=== PATIENT | male | born 1935 | race Caucasian/White ===

== ENCOUNTER 2020-12-10 22:15 | Inpatient (IN) ==
--- OUTSIDE RECORDS SUMMARY | 2020-12-10 22:17 | External Medical Summary | Continuity of Care Document ---
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 KERRI Macias Start: 29-Aug-2010 Refills: 0 Flaxseed Oil 1000 MG Oral Capsule; One capsule daily KERRI Christine Start: 29-Aug-2010 Refills: 0 Aspirin 81 MG TABS; TAKE 1 TABLET DAILY. KERRI Christine Start: 29-Aug-2010 Refills: 0 Percocet 7.5-325 MG Oral Tablet; TAKE 1 TO 2 TABLETS EVERY 4 TO 6 HOURS NEEDED FOR PAIN. KERRI Christine Start: 29-Aug-2010 Refills: 0 Flexeril 10 MG TABS; TAKE 1 TABLET 3 TIMES DAILY NEEDED. KERRI Christine Start: 29-Aug-2010 Refills: 0 Doxazosin Mesylate 4 MG Oral Tablet; TAKE 1 TABLET DAILY. KERRI Barr Start: 29-Aug-2010 Refills: 0 Procedures History of Cholecystectomy Status: Compl eted History of Knee Surgery Status: Complete d History of Appendectomy Status: Complete d History of Cath Stent Placement Status: Completed Immunizations Immunizations not documented Social History - Smoking Status Ex-smoker Interventions Follow-ups/ReferralsFollow-up visit in 1 year; Done: 26 Feb 2016 Plan of Treatment Planned Observations Planned Goals not documented Results No Known Results Results not documented Encounters Appointment; Nicolas De La Cruz M.D. 26-Feb-2016 7:30 Encounter Diagnosis: Problem not documented
--- OUTSIDE RECORDS SUMMARY | 2020-12-10 22:18 | External Medical Summary | Continuity of Care Document ---
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 KERRI Macias Start: 29-Aug-2010 Refills: 0 Aspirin 81 MG TABS; TAKE 1 TABLET DAILY. KERRI Christine Start: 29-Aug-2010 Refills: 0 Flaxseed Oil 1000 MG Oral Capsule; One capsule daily KERRI Christine Start: 29-Aug-2010 Refills: 0 Doxazosin Mesylate 4 MG Oral Tablet; TAKE 1 TABLET DAILY. KERRI Barr Start: 29-Aug-2010 Refills: 0 Flexeril 10 MG TABS; TAKE 1 TABLET 3 TIMES DAILY NEEDED. KERRI Christine Start: 29-Aug-2010 Refills: 0 Percocet 7.5-325 MG Oral Tablet; TAKE 1 TO 2 TABLETS EVERY 4 TO 6 HOURS NEEDED FOR PAIN. KERRI Christine Start: 29-Aug-2010 Refills: 0 Procedures History of [...]
[2020-12-10] MEDS ORDERED: SODIUM CHLORIDE 0.9% 500 ML IV SCH (22:45)
[2020-12-10 22:55] LABS: Basophils # (auto) 0.03 K/uL (0-0.2); Basophils % (auto) 0.2 %; Eosinophils # (auto) 0.04 K/uL (0-0.5); Eosinophils % (auto) 0.3 %; Hematocrit (blood only) 40.2 % (42-52); Hemoglobin 13.8 g/dL (14.0-18.0); Immature Granulocytes # (auto) 0.04 K/uL (0.00-0.02); Immature Granulocytes % (auto) 0.3 %; Lymphocytes # (auto) 1.73 K/uL (1.2-3.4); Lymphocytes % (auto) 13.4 %; Mean Corpuscular Hemoglobin 30.2 pg (25-34); Mean Corpuscular Hgb Conc 34.3 g/dL (32-36); Mean Platelet Volume 10.2 fL (7.4-10.4); Monocytes # (auto) 0.61 K/uL (0.11-0.59); Monocytes % (auto) 4.7 %; Neutrophils # (auto) 10.44 K/uL (1.4-6.5); Neutrophils % (auto) 81.1 %; Platelet Count 192 K/uL (130-400); RDW Coefficient of Variation 13.7 % (11.5-14.5); Red Blood Count 4.57 M/uL (4.7-6.1); White Blood Count 12.89 K/uL (4.8-10.8)
[2020-12-10 23:04] LABS: iSTAT Creatinine 1.7 mg/dl (0.6-1.3); iSTAT Hemoglobin 13.9 g/dl (14.0-18.0); iSTAT Ionized Calcium 1.19 mmol/l (1.12-1.32); iSTAT Potassium 4.2 mmol/L (3.3-5.0)
[2020-12-10 23:06] LABS: Prothrombin Time 10.3 Seconds (9.0-12.0)
[2020-12-10 23:11] LABS: Alanine Aminotransferase 20 U/L (12-78); Albumin Level 4.2 gm/dl (3.4-5.0); Aspartate Aminotransferase 23 U/L (15-37); BUN Creatinine Ratio 22.3 (10-20); Blood Urea Nitrogen 39 mg/dl (7-18); Calcium 9.2 mg/dl (8.5-10.1); Carbon Dioxide 19 mmol/L (21-32); Chloride 110 mmol/L (98-107); Est GFR (African American) 40.5; Glucose 148 mg/dl (70-99); Magnesium 1.7 mg/dl (1.8-2.4); Potassium 4.1 mmol/L (3.5-5.1); Sodium 138 mmol/L (136-145)
[2020-12-10 23:16] LABS: Albumin Globulin Ratio 1.2 (0.9-2); Alkaline Phosphatase 125 U/L (45-117); Bilirubin,Total 0.3 mg/dl (0.2-1); Globulin 3.5 gm/dl (2.5-4.0); Total Protein 7.7 gm/dl (6.4-8.2); Troponin I < 0.015 ng/ml (0-0.045)
[2020-12-10] MEDS ORDERED: PIPERACILLIN/TAZOBACTAM 4.5 GM/120 ML BAG IV ONE (23:48)
[2020-12-10] MEDS ORDERED: PIPERACILL/TAZOBAC CONSULT ACTIVE PRN (23:48)
[2020-12-10] MEDS ORDERED: SODIUM CHLORIDE 0.9% 1000ML 1,000 ML IV ONE (23:48)
[2020-12-10] MEDS ORDERED: SODIUM CHLORIDE 0.9% 500 ML IV ONE (23:48)
[2020-12-10] MEDS ORDERED: OPTIRAY 320 100ml IV ONE (23:51)
--- NOTE | 2020-12-11 00:08 | Emergency Department Note ---
History of Present Illness General Chief complaint: Rectal Pain Stated complaint: PAIN/BLEEDING RECTAL Time Seen by Provider: 12/10/20 22:23 History of Present Illness Maximum Pain Intensity: 9 This 85-year-old presents to the ER complaining of abdominal pain and rectal pain for the past day Location: Abdomen and rectum Quality: Painful Severity: Moderate Duration: Today Timing: Today Context: Patient and family were concerned and brought the patient in Modifying factors: better with nothing; worse with palpation Patient had bright red blood per rectum. He does have a known abdominal aneurysm that has been repaired and might need to be repaired again. Patient denies chest pain, dyspnea, fevers, vomiting, diarrhea. Home Medications Medication Instructions Recorded Confirmed Type aspirin 81 mg PO DAILY 08/24/19 12/10/20 History cyclobenzaprine 5 mg PO HS 08/24/19 12/10/20 History doxazosin 4 mg PO HS 08/24/19 12/10/20 History famotidine 20 mg PO BID 08/24/19 12/10/20 History loumouefeyk-dypwyevuv-lyxsdomz 1 inh INHALATION DAILY 08/24/19 12/10/20 History [Trelegy Ellipta] nitroglycerin 0.4 mg SUBLINGUAL DAILY PRN 08/24/19 12/10/20 History omeprazole 40 mg PO DAILY 08/24/19 12/10/20 History sertraline 50 mg PO DAILY 08/24/19 12/10/20 History albuterol sulfate 2 puff INHALATION Q4 PRN 12/10/20 12/10/20 History multivitamin [Multiple Vitamin] 1 tab PO DAILY 12/10/20 12/10/20 History umeclidinium-vilanterol [Anoro 1 inh INHALATION DAILY PRN 12/10/20 12/10/20 H istory Ellipta] Allergies Allergy/AdvReac Type Severity Reaction Status Date / Time No Known Allergies Allergy Mild Verified 12/10/20 23:23 Past Med/Surg History Medical History (Updated 12/11/20 @ 00:51 by Gabby Barnett PA-C) COPD (chronic obstructive pulmonary disease) Surgical History History of heart artery stent Social History Smoking Status: Former smoker Tobacco Type: Cigarettes Feels Safe at Home: Yes Review of Systems A total of 10 systems reviewed and were otherwise negative Physical Exam Vital Signs Vital Signs - 24 hr 12/10/20 22:18 12/10/20 23:04 12/11/20 00:53 Temperature 36.5 C Temperature Source Temporal Artery Scan Pulse Rate 112 H 112 H 100 H Pulse Rate from SpO2 Sensor 100 H Respiratory Rate 16 16 18 Respiratory Effort / Characteristics Non-Labored Spontaneous Respiratory Depth Normal Blood Pressure 166/86 H 164/94 H Blood Pressure Mean 112 117 Pulse Oximetry 92 92 95 Oxygen Delivery Method Room Air Room Air Sepsis Recent Fever Within 48 Hours No Sepsis New/Unexplained Change in Mental Status No Sepsis Action Taken by Nursing No Action Required 12/11/20 00:56 12/11/20 01:00 Temperature Temperature Source Pulse Rate 100 H 100 H Pulse Rate from SpO2 Sensor 100 H 100 H Respiratory Rate 18 18 Respiratory Effort / Characteristics Respiratory Depth Blood Pressure 168/94 H Blood Pressure Mean 118 Pulse Oximetry 95 92 Oxygen Delivery Method Sepsis Recent Fever Within 48 Hours Sepsis New/Unexplained Change in Mental Status Sepsis Action Taken by Nursing VITALS: Vitals are noted on the nurse's note and reviewed by myself. Vital signs stable. GENERAL: Pleasant male who appears in pain, in no acute distress, nondiaphoretic, well-developed well-nourished. SKIN: Capillary reflex less than 2 seconds. HEENT: Normocephalic. PERRLA. EOMI. Nares patent. Mucous membranes moist. Neck is supple without nuchal rigidity. HEART: Regular rate and rhythm LUNGS: Clear to auscultation bilaterally without wheezes, rales or rhonchi. No retractions or accessory muscle use. ABDOMEN: Positive bowel sounds x 4. Normal tympanic percussion. Soft, diffusely tender to palpation, without masses or organomegaly. Lee sign negative. No guarding or rebound tenderness. No CVA tenderness Rectal exam: Hemorrhoids present, light brown liquid stool, daughter present. No fissures or tears. MUSCULOSKELETAL: No gross musculoskeletal defects. NEURO: Patient was alert and oriented to person place and time. No focal neurological deficits. Course Administered Medications Sodium Chloride (Nss 1000ml) 1,000 mls @ 75 mls/hr IV .[id number] ONE Stop: 12/11/20 14:15 Last Admin: 12/11/20 01:24 Dose: 75 mls/hr Documented by: [id number] Discontinued Medications Doxazosin Mesylate (Doxazosin Mesylate Tab 2 Mg Tab) 2 mg PO NOW STA Stop: 12/11/20 00:53 Last Admin: 12/11/20 01:21 Dose: 2 mg Documented by: [id number] Sodium Chloride (Nss) 500 mls @ 999 mls/hr IV .Q31M RABIA Stop: 12/10/20 23:15 Last Infusion: 12/10/20 23:16 Dose: 0 mls/hr Documented by: [id number] Admin: 12/10/20 22:45 Dose: 999 mls/hr Documented by: [id number] Piperacillin Sod/Tazobactam Sod (Zosyn) 4.5 gm in 120 mls @ 240 mls/hr IV NOW ONE Stop: 12/11/20 00:17 Last Admin: 12/11/20 01:13 Dose: 240 mls/hr Documented by: [id number] Sodium Chloride (Nss 1000ml) 1,000 mls @ 999 mls/hr IV .Q1H1M ONE Stop: 12/11/20 00:48 Last Infusion: 12/11/20 01:23 Dose: 0 mls/hr Documented by: [id number] Admin: 12/10/20 23:50 Dose: 999 mls/hr Documented by: [id number] Sodium Chloride (Nss) 500 mls @ 999 mls/hr IV .Q31M ONE Stop: 12/11/20 00:18 Last Infusion: 12/11/20 00:21 Dose: 0 mls/hr Documented by: [id number] Admin: 12/10/20 23:50 Dose: 999 mls/hr Documented by: [id number] Ioversol (Ioversol 100ml) 100 ml IV ONCE ONE Stop: 12/10/20 23:52 Last Admin: 12/10/20 23:52 Dose: 93 ml Documented by: [id number] Medical Decision Making Medical Records Attestation: I reviewed the patient's medical records. Home Medications Current Medication List: was personally reviewed by me Laboratory Data Attestation: I reviewed the patient's lab results. Result diagrams: 12/10/20 22:46 12/10/20 22:46 Lab Results 12/10/20 12/10/20 12/10/20 Range/Units 22:22 22:46 22:46 WBC 12.89 H (4.8-10.8) K/uL RBC 4.57 L (4.7-6.1) M/uL Hgb 13.8 L (14.0-18.0) g/dL POC Hgb (14.0-18.0) g/dl Hct 40.2 L (42-52) % POC Hct (42-52) % MCV 88.0 (80-100) fL MCH 30.2 (25-34) pg MCHC 34.3 (32-36) g/dL RDW Std Deviation 44.0 (36.4-46.3) fL RDW Coeff of Ravi 13.7 (11.5-14.5) % Plt Count 192 (130-400) K/uL MPV 10.2 (7.4-10.4) fL Immature Gran % (Auto) 0.3 % Neut % (Auto) 81.1 % Lymph % (Auto) 13.4 % Hooker % (Auto) 4.7 % Eos % (Auto) 0.3 % Baso % (Auto) 0.2 % Neut # (Auto) 10.44 H (1.4-6.5) K/uL Lymph # (Auto) 1.73 (1.2-3.4) K/uL Hooker # (Auto) 0.61 H (0.11-0.59) K/uL Eos # (Auto) 0.04 (0-0.5) K/uL Baso # (Auto) 0.03 (0-0.2) K/uL Immature Gran # (Auto) 0.04 H (0.00-0.02) K/uL PT 10.3 (9.0-12.0) Seconds INR 1.0 (0.9-1.1) POC Sodium (135-144) mmol/L Sodium (136-145) mmol/L POC Potassium (3.3-5.0) mmol/L Potassium (3.5-5.1) mmol/L POC Chloride (101-112) mmol/L Chloride (98-107) mmol/L Carbon Dioxide (21-32) mmol/L POC Total CO2 (24-31) mmol/L Anion Gap (3-11) POC Anion Gap (16-25) mmol/L POC BUN (7-18) mg/dl BUN (7-18) mg/dl Creatinine (0.6-1.4) mg/dl POC Creatinine (0.6-1.3) mg/dl Est Cr Clr Drug Dosing Est GFR ( Amer) Est GFR (Non-Af Amer) BUN/Creatinine Ratio (10-20) Glucose (70-99) mg/dl POC Glucose (other) (70-99) mg/dl Lactate (0.4-2.0) mmol/L Calcium (8.5-10.1) mg/dl POC Ioniz Calcium Ric (1.12-1.32) mmol/l Magnesium (1.8-2.4) mg/dl Total Bilirubin (0.2-1) mg/dl AST (15-37) U/L ALT (12-78) U/L Alkaline Phosphatase (45-117) U/L Troponin I (0-0.045) ng/ml Total Protein (6.4-8.2) gm/dl Albumin (3.4-5.0) gm/dl Globulin (2.5-4.0) gm/dl Albumin/Globulin Ratio (0.9-2) Procalcitonin (0-0.5) ng/ml POC Stool Occult Blood Negative (Negative) COVID-19 Eval Order Blood Type Antibody Screen 12/10/20 12/10/20 12/10/20 Range/Units 22:46 22:46 22:46 WBC (4.8-10.8) K/uL RBC (4.7-6.1) M/uL Hgb (14.0-18.0) g/dL POC Hgb (14.0-18.0) g/dl Hct (42-52) % POC Hct (42-52) % MCV (80-100) fL MCH (25-34) pg MCHC (32-36) g/dL RDW Std Deviation (36.4-46.3) fL RDW Coeff of Ravi (11.5-14.5) % Plt Count (130-400) K/uL MPV (7.4-10.4) fL Immature Gran % (Auto) % Neut % (Auto) % Lymph % (Auto) % Hooker % (Auto) % Eos % (Auto) % Baso % (Auto) % Neut # (Auto) (1.4-6.5) K/uL Lymph # (Auto) (1.2-3.4) K/uL Hooker # (Auto) (0.11-0.59) K/uL Eos # (Auto) (0-0.5) K/uL Baso # (Auto) (0-0.2) K/uL Immature Gran # (Auto) (0.00-0.02) K/uL PT (9.0-12.0) Seconds INR (0.9-1.1) POC Sodium (135-144) mmol/L Sodium 138 (136-145) mmol/L POC Potassium (3.3-5.0) mmol/L Potassium 4.1 (3.5-5.1) mmol/L POC Chloride (101-112) mmol/L Chloride 110 H (98-107) mmol/L Carbon Dioxide 19 L (21-32) mmol/L POC Total CO2 (24-31) mmol/L Anion Gap 9.0 (3-11) POC Anion Gap (16-25) mmol/L POC BUN (7-18) mg/dl BUN 39 H (7-18) mg/dl Creatinine 1.73 H (0.6-1.4) mg/dl POC Creatinine (0.6-1.3) mg/dl Est Cr Clr Drug Dosing Not Reportable Est GFR ( Amer) 40.5 Est GFR (Non-Af Amer) 35.0 BUN/Creatinine Ratio 22.3 H (10-20) Glucose 148 H (70-99) mg/dl POC Glucose (other) (70-99) mg/dl Lactate 2.6 H* (0.4-2.0) mmol/L Calcium 9.2 (8.5-10.1) mg/dl POC Ioniz Calcium Ric (1.12-1.32) mmol/l Magnesium 1.7 L (1.8-2.4) mg/dl Total Bilirubin 0.3 (0.2-1) mg/dl AST 23 (15-37) U/L ALT 20 (12-78) U/L Alkaline Phosphatase 125 H (45-117) U/L Troponin I < 0.015 (0-0.045) ng/ml Total Protein 7.7 (6.4-8.2) gm/dl Albumin 4.2 (3.4-5.0) gm/dl Globulin 3.5 (2.5-4.0) gm/dl Albumin/Globulin Ratio 1.2 (0.9-2) Procalcitonin (0-0.5) ng/ml POC Stool Occult Blood (Negative) COVID-19 Eval Order Blood Type O Positive Antibody Screen NEGATIVE 12/10/20 12/10/20 12/11/20 Range/Units 22:46 22:51 01:05 WBC (4.8-10.8) K/uL RBC (4.7-6.1) M/uL Hgb (14.0-18.0) g/dL POC Hgb 13.9 L (14.0-18.0) g/dl Hct (42-52) % POC Hct 41 L (42-52) % MCV (80-100) fL MCH (25-34) pg MCHC (32-36) g/dL RDW Std Deviation (36.4-46.3) fL RDW Coeff of Ravi (11.5-14.5) % Plt Count (130-400) K/uL MPV (7.4-10.4) fL Immature Gran % (Auto) % Neut % (Auto) % Lymph % (Auto) % Hooker % (Auto) % Eos % (Auto) % Baso % (Auto) % Neut # (Auto) (1.4-6.5) K/uL Lymph # (Auto) (1.2-3.4) K/uL Hooker # (Auto) (0.11-0.59) K/uL Eos # (Auto) (0-0.5) K/uL Baso # (Auto) (0-0.2) K/uL Immature Gran # (Auto) (0.00-0.02) K/uL PT (9.0-12.0) Seconds INR (0.9-1.1) POC Sodium 140 (135-144) mmol/L Sodium (136-145) mmol/L POC Potassium 4.2 (3.3-5.0) mmol/L Potassium (3.5-5.1) mmol/L POC Chloride 111 (101-112) mmol/L Chloride (98-107) mmol/L Carbon Dioxide (21-32) mmol/L POC Total CO2 19 L (24-31) mmol/L Anion Gap (3-11) POC Anion Gap 14.0 L (16-25) mmol/L POC BUN 35 H (7-18) mg/dl BUN (7-18) mg/dl Creatinine (0.6-1.4) mg/dl POC Creatinine 1.7 H (0.6-1.3) mg/dl Est Cr Clr Drug Dosing Est GFR ( Amer) Est GFR (Non-Af Amer) BUN/Creatinine Ratio (10-20) Glucose (70-99) mg/dl POC Glucose (other) 154 H (70-99) mg/dl Lactate (0.4-2.0) mmol/L Calcium (8.5-10.1) mg/dl POC Ioniz Calcium Ric 1.19 (1.12-1.32) mmol/l Magnesium (1.8-2.4) mg/dl Total Bilirubin (0.2-1) mg/dl AST (15-37) U/L ALT (12-78) U/L Alkaline Phosphatase (45-117) U/L Troponin I (0-0.045) ng/ml Total Protein (6.4-8.2) gm/dl Albumin (3.4-5.0) gm/dl Globulin (2.5-4.0) gm/dl Albumin/Globulin Ratio (0.9-2) Procalcitonin < 0.05 (0-0.5) ng/ml POC Stool Occult Blood (Negative) COVID-19 Eval Order CovFluRsv at [facility] Blood Type Antibody Screen Imaging Data Attestation: I personally reviewed and interpreted this imaging study as follows: MDM Narrative Prior records/ancillary studies reviewed. Triage Nursing notes reviewed. Additional history obtained from the family. The patient's history was concerning for possible gastrointestinal bleeding. Differential diagnosis: Etiologies such as diverticulosis, AVM, coagulopathy, colitis, inflammatory bowel disease, malignancy, Josette-Bull tear, esophagitis, peptic ulcer disease, variceal bleed, gastritis, epistaxis, fissure, hemorrhoids, as well as others were entertained. Physical exam: As above. The patients vital signs were mildly tachycardic. ER treatment provided: An order was placed for continuous cardiac monitoring. The monitor shows a rate of 60-1 20 with a sinus rhythm. IV fluids, Zosyn, enema On reassessment the patient felt better. Diagnostics interpreted by me: ECG: Ordered for tachycardia EKG: Normal sinus, first-degree AV block, no acute ST or T wave changes. Impression first-degree AV block interpreted by myself I think arrhythmia is unlikely. EKG shows no interval abnormalities such as QT prolongation or WPW. There are no findings to suggest Brugada syndrome. Cardiac monitoring in the emergency department reveals no tachycardic or bradycardic dysrhythmia. Hypertrophic cardiomyopathy was considered but there are no clear historical elements pointing toward this. EKG is not suggestive. The QRS voltage is not extremely large and there are no suggestive Q waves. The labs revealed mild leukocytosis Elevated lactic acid Negative troponin Mild anemia Type and screen sent and patient and daughter were counseled on blood transfusion if needed. Paperwork is placed on the chart. Imaging studies: Chest x-ray with no acute consolidation, pneumothorax or free air per my interpretation Preliminary Findings Only See Final Report For Complete Findings CT ABDOMEN & PELVIS With Contrast: 6.4 cm infrarenal abdominal aortic aneurysm with bifurcated endovascular repair. Mild hyperdensity within the aneurysm sac which could indicate an underlying endoleak. 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 Bilateral renal cysts. No hydronephrosis. Cholecystectomy. No bowel obstruction. Nonvisualization of the appendix which may be surgically a bsent. Colonic diverticulosis. No definite CT evidence for diverticulitis. Large amount of stool in the rectum which may reflect constipation. Enlarged prostate gland. Fat-containing left inguinal hernia. No acute osseous abnormality. Radiologist: Sixto Ware M.D. Consultation: A consultation was placed with Dr Montenegro, hospitalist. The case was discussed and diagnostics were reviewed. The patient was evaluated in the ER for further treatment. This appears to be consistent with abdominal pain with rectal bleeding with a lactic acidosis. Patient did receive an enema. He had a large bowel movement. His lactic was elevated. He had a white count. He was started antibiotics. Medicine was consulted. He will be evaluated for admission. By the evaluation outlined above emergent etiologies such as esophageal perforation, peptic ulcer disease, variceal bleed, coagulopathy, gastritis, epistaxis, malignancy, inflammatory bowel disease, as well as others were deemed relatively unlikely. The pt informed about the findings as listed above. All questions were answered and pleased with the treatment. The chart was completed utilizing [employer] Speech voice recognition software. Grammatical errors, random word insertions, pronoun errors, and incomplete sentences are an occassional consequence of this system due to software limitations, ambient noise, and hardware issues. Any formal questions or concerns about the content, text, or information contained within the body of t his dictation should be directly addressed to the physician technical staff assistant for clarification. Impression & Plan Abdominal pain, Bright red rectal bleeding, Acidosis, lactic Discharge Plan Visit Data Chief Complaint: Rectal Pain Stated Complaint: PAIN/BLEEDING RECTAL ED Provider: Michael Watkins ED Midlevel Provider: Gabby Barnett Discharge Problem: Abdominal pain, Bright red rectal bleeding, Acidosis, lactic Patient Disposition: Admitted As Inpatient Condition: Fair Forms Stand Alone Forms: [facility] Prescriptions Prescriptions: No Action cyclobenzaprine 10 mg tablet 5 mg PO HS RF: 0 omeprazole 40 mg capsule,delayed release(DR/EC) 40 mg PO DAILY RF: 0 aspirin 81 mg Tablet,Delayed Release (Dr/Ec) 81 mg PO DAILY RF: 0 famotidine 20 mg tablet 20 mg PO BID RF: 0 nitroglycerin 0.4 mg tablet, sublingual 0.4 mg sublingual DAILY PRN (Reason: Chest Pain) RF: 0 doxazosin 4 mg tablet 4 mg PO HS RF: 0 sertraline 50 mg tablet 50 mg PO DAILY RF: 0 Trelegy Ellipta 100-62.5-25 mcg blister with device 1 inh INHALATION DAILY RF: 0 multivitamin [Multiple Vitamin] Tablet 1 tab PO DAILY RF: 0 albuterol sulfate 90 mcg/actuation HFA aerosol inhaler 2 puff INHALATION Q4 PRN (Reason: Shortness Of Breath Or Wheezing) RF: 0 Anoro Ellipta 62.5-25 mcg/actuation Blister With Device 1 inh INHALATION DAILY PRN (Reason: Shortness Of Breath Or Wheezing) RF: 0 Referrals Referrals: Víctor Domínguez MD [Primary Care Provider] - Discharge Problem: Abdominal pain Qualifiers: Abdominal location: generalized Qualified Code(s): R10.84 - Generalized abdominal pain
[2020-12-11] MEDS ORDERED: DOXAZosin MESYLATE TAB 2 MG TAB PO STA (00:52)
[2020-12-11] MEDS ORDERED: SODIUM CHLORIDE 0.9% 1000ML 1,000 ML IV ONE (00:56)
[2020-12-11] MEDS: MAGNESIUM SULFATE / D5W 1 GM/100 ML BAG IV SCH ×2 (02:08→03:30)
[2020-12-11 02:18] LABS: Influenza A virus by PCR Negative (Neg); Influenza B virus by PCR Negative (Neg); RSV by PCR Negative (Neg); SARS CoV2 RNA(COVID-19) InHosp NEGATIVE (Negative)
[2020-12-11 02:26] LABS: Appearance Urine Clear (Clear); Bilirubin Urine Negative (Negative); Blood Urine Negative (Negative); Color Urine Yellow; Glucose Urine UA Negative (Negative); Ketones Urine Negative (Negative); Leukocyte Esterase Urine Negative (Negative); Nitrite Urine Negative (Negative); Protein Urine Negative (Negative); Specific Gravity Urine > 1.045 (1.000-1.030); Urobilinogen Urine Negative (Negative)
--- NOTE | 2020-12-11 04:40 | History & Physical Report ---
Date of Service December 11, 2020 Assessment & Plan (1) Abdominal pain: with L GIB as per family account Possibly from fecal retention, hx diverticulosis, hemorrhoids from last colonoscopy Hemoglobin currently stable. ARF on CKD secondary to illness AAA with possible endoleak hx AAA repair (01/2019) Some enlargement compared to last imaging from 2 months ago. Patient follows with [facility] vascular surgery hx CAD status post stent COPD, pulmonary status at baseline hypertension, elevated secondary discomfort hyperlipidemia, statin intolerance as per records hx renal artery stenosis as per records chronic anemia, hemoglobin better than baseline likely secondary to hemoconcentration Hyperglycemia likely prediabetes, hemoglobin A1c of 6.13 February 2020 Dementia, patient has a pleasant baseline past tobacco abuse OBS Medical telemetry Bowel regimen Clear liquids for now Appropriate to hold home aspirin given L GIB Serial H&H, transfuse PRBC if hemoglobin less than 8 and or for symptomatic anemia GI consult if with progression Monitor creatinine response to IVF Outpatient [facility] vascular surgery follow-up (Case discussed with [facility] vascular surgeon contractor general building, Dr. Slaughter. He does not think patient's abdominal pain is from AAA endoleak. Patient also a poor candidate for vascular surgery as per Dr. Slaughter.) Delirium precautions Update hemoglobin A1c DVT prophylaxis with SCDs Re: GI bleed DNR as per daughter/POA Ms. Negrita Shapr. (I communicated [facility] vascular surgeon recommendations to daughter regarding AAA as well.) She requests updates from providers thru [phone]. Text document was generated using [employer] voice recognition software. It may contain grammatical or spelling errors. Kindly contact undersigned for clarification of any documentation item in question. History of Present Illness Chief Complaint: Surgery as per patient Abdominal pain, rectal bleeding as per family Primary Care Provider: Víctor Domínguez MD History obtained from patient, family, and records. Limited history from patient secondary to dementia. Medical history significant for AAA repair (01/2019, [facility]), CAD, COPD, hypertension, hyperlipidemia, statin intolerance, renal artery stenosis as per records, CRI (baseline creatinine 1.5 ), chronic anemia (baseline hemoglobin 12), dementia, past tobacco abuse. Patient underwent AAA repair at [facility] last January 2019. August 2020 aortic duplex showed endoleak with increase in aneurysmal sac size from 5 to 5[address] abdomen pelvis showed interval increase size of aneurysm sac to 5.2 x 6.2 cm consistent with endoleak. Patient without complaints of abdominal/flank or back pain at time of CT report. 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 1 day history of achy abdominal pain going across patient's belly with bright red blood per rectum. Unknown if patient constipated. No fever, no chills. Patient denies chest pain, S OB, nausea, emesis symptoms. Patient brought to the ER for evaluation. Given Zosyn for possible sepsis. Soapsuds enema given at the ER as well for possible constipation. Patient currently without complaints and has no recollection as to why he is in the hospital. Medical History as above 2011 EGD showed normal stomach and duodenum. 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 with Allergies Allergy/AdvReac Type Severity Reaction Status Date / Time No Known Allergies Allergy Mild Verified 12/10/20 23:23 Home Medications Medication Instructions Recorded Confirmed Type aspirin 81 mg PO DAILY 08/24/19 12/10/20 History cyclobenzaprine 5 mg PO HS 08/24/19 12/10/20 History doxazosin 4 mg PO HS 08/24/19 12/10/20 History famotidine 20 mg PO BID 08/24/19 12/10/20 History ewertoezyli-jihkgzmxi-redjgfdp 1 inh INHALATION DAILY 08/24/19 12/10/20 History [Trelegy Ellipta] nitroglycerin 0.4 mg SUBLINGUAL DAILY PRN 08/24/19 12/10/20 History omeprazole 40 mg PO DAILY 08/24/19 12/10/20 History sertraline 50 mg PO DAILY 08/24/19 12/10/20 History albuterol sulfate 2 puff INHALATION Q4 PRN 12/10/20 12/10/20 History multivitamin [Multiple Vitamin] 1 tab PO DAILY 12/10/20 12/10/20 History umeclidinium-vilanterol [Anoro 1 inh INHALATION DAILY PRN 12/10/20 12/10/20 History Ellipta] Past Med/Surg History Medical History (Updated 12/11/20 @ 00:51 by Gabby Barnett PA-C) COPD (chronic obstructive pulmonary disease) Surgical History History of heart artery stent Social History Smoking Status: Former smoker Tobacco Type: Cigarettes Second Hand Exposure: No; Do You Dip or Chew Tobacco: No; Tobacco Cessation Education Requested by Patient: No Hx Alcohol Use: Yes Alcohol type: beer Hx Substance Use: No Preferred Language: Uzbek Communication Ability: Effective Insulation Nozzleman Required: No Beliefs That Will Affect Care: None Current Living Situation: Spouse Other Information That Helps Us Care for You: No Feels Safe at Home: Yes Safety Concerns: Feels Safe At This Time Assistive Devices: Glasses Review of Systems Review of Systems: Could not be reliably obtained Physical Exam Physical Exam: GENERAL: Comfortable, pleasant, demented, no respiratory distress SKIN: Pallor, warm HEENT: Alopecia, bespectacled, pale palpebral conjunctivae, no ptosis, dry buccal mucosa NECK : Supple, no tenderness CHEST : CTA, no tenderness HEART : RRR, no obvious murmurs ABDOMEN: Some distention, minimal hypogastric tenderness EXTREMITIES : No LE swelling/tenderness, no other conspicuous deformities noted NEUROLOGIC : Coherent, pleasantly demented, no facial asymmetry, no other gross focality Results & Data Results & Data ([facility]) Vital Signs (Past 12 Hours) Vital Signs Temp Pulse Pulse Resp BP BP Pulse Ox 12/11/20 04:11 37 C 89 17 149/84 H 95 12/11/20 04:00 89 15 149/84 H 92 12/11/20 03:30 92 H 17 138/89 94 12/11/20 03:00 91 H 18 150/86 H 92 12/11/20 02:30 94 H 18 116/64 94 12/11/20 02:00 104 H 15 141/70 H 94 12/11/20 01:31 100 H 20 178/97 H 92 12/11/20 01:30 98 H 19 92 12/11/20 01:00 100 H 18 168/94 H 92 12/11/20 00:56 100 H 18 95 12/11/20 00:53 100 H 18 164/94 H 95 12/10/20 23:04 112 H 16 92 12/10/20 22:18 36.5 C 112 H 16 166/86 H 92 Laboratory Results Laboratory Results WBC 12.89 K/uL (4.8-10.8) H 12/10/20 22:46 RBC 4.57 M/uL (4.7-6.1) L 12/10/20 22:46 Hgb 13.8 g/dL (14.0-18.0) L 12/10/20 22:46 POC Hgb 13.9 g/dl (14.0-18.0) L 12/10/20 22:51 Hct 40.2 % (42-52) L 12/10/20 22:46 POC Hct 41 % (42-52) L 12/10/20 22:51 MCV 88.0 fL (80-100) 12/10/20 22:46 MCH 30.2 pg (25-34) 12/10/20 22:46 MCHC 34.3 g/dL (32-36) 12/10/20 22:46 RDW Std Deviation 44.0 fL (36.4-46.3) 12/10/20 22:46 RDW Coeff of Ravi 13.7 % (11.5-14.5) 12/10/20 22:46 Plt Count 192 K/uL (130-400) 12/10/20 22:46 MPV 10.2 fL (7.4-10.4) 12/10/20 22:46 Immature Gran % (Auto) 0.3 % 12/10/20 22:46 Neut % (Auto) 81.1 % 12/10/20 22:46 Lymph % (Auto) 13.4 % 12/10/20 22:46 Clare % (Auto) 4.7 % 12/10/20 22:46 Eos % (Auto) 0.3 % 12/10/20 22:46 Baso % (Auto) 0.2 % 12/10/20 22:46 Neut # (Auto) 10.44 K/uL (1.4-6.5) H 12/10/20 22:46 Lymph # (Auto) 1.73 K/uL (1.2-3.4) 12/10/20 22:46 Clare # (Auto) 0.61 K/uL (0.11-0.59) H 12/10/20 22:46 Eos # (Auto) 0.04 K/uL (0-0.5) 12/10/20 22:46 Baso # (Auto) 0.03 K/uL (0-0.2) 12/10/20 22:46 Immature Gran # (Auto) 0.04 K/uL (0.00-0.02) H 12/10/20 22:46 PT 10.3 Seconds (9.0-12.0) 12/10/20 22:46 INR 1.0 (0.9-1.1) 12/10/20 22:46 POC Sodium 140 mmol/L (135-144) 12/10/20 22:51 Sodium 138 mmol/L (136-145) 12/10/20 22:46 POC Potassium 4.2 mmol/L (3.3-5.0) 12/10/20 22:51 Potassium 4.1 mmol/L (3.5-5.1) 12/10/20 22:46 POC Chloride 111 mmol/L (101-112) 12/10/20 22:51 Chloride 110 mmol/L (98-107) H 12/10/20 22:46 Carbon Dioxide 19 mmol/L (21-32) L 12/10/20 22:46 POC Total CO2 19 mmol/L (24-31) L 12/10/20 22:51 Anion Gap 9.0 (3-11) 12/10/20 22:46 POC Anion Gap 14.0 mmol/L (16-25) L 12/10/20 22:51 POC BUN 35 mg/dl (7-18) H 12/10/20 22:51 BUN 39 mg/dl (7-18) H 12/10/20 22:46 Creatinine 1.73 mg/dl (0.6-1.4) H 12/10/20 22:46 POC Creatinine 1.7 mg/dl (0.6-1.3) H 12/10/20 22:51 Est Cr Clr Drug Dosing Not Reportable 12/10/20 22:46 Est GFR ( Amer) 40.5 12/10/20 22:46 Est GFR (Non-Af Amer) 35.0 12/10/20 22:46 BUN/Creatinine Ratio 22.3 (10-20) H 12/10/20 22:46 Glucose 148 mg/dl (70-99) H 12/10/20 22:46 POC Glucose (other) 154 mg/dl (70-99) H 12/10/20 22:51 Lactate 1.6 mmol/L (0.4-2.0) 12/11/20 01:18 Calcium 9.2 mg/dl (8.5-10.1) 12/10/20 22:46 POC Ioniz Calcium Ric 1.19 mmol/l (1.12-1.32) 12/10/20 22:51 Magnesium 1.7 mg/dl (1.8-2.4) L 12/10/20 22:46 Total Bilirubin 0.3 mg/dl (0.2-1) 12/10/20 22:46 AST 23 U/L (15-37) 12/10/20 22:46 ALT 20 U/L (12-78) 12/10/20 22:46 Alkaline Phosphatase 125 U/L (45-117) H 12/10/20 22:46 Troponin I < 0.015 ng/ml (0-0.045) 12/10/20 22:46 Total Protein 7.7 gm/dl (6.4-8.2) 12/10/20 22:46 Albumin 4.2 gm/dl (3.4-5.0) 12/10/20 22:46 Globulin 3.5 gm/dl (2.5-4.0) 12/10/20 22:46 Albumin/Globulin Ratio 1.2 (0.9-2) 12/10/20 22:46 Procalcitonin < 0.05 ng/ml (0-0.5) 12/10/20 22:46 Urine Color Yellow 12/11/20 02:15 Urine Appearance Clear (Clear) 12/11/20 02:15 Urine pH 5.0 (4.5-7.5) 12/11/20 02:15 Ur Specific [place] > 1.045 (1.000-1.030) H 12/11/20 02:15 Urine Protein Negative (Negative) 12/11/20 02:15 Urine Glucose (UA) Negative (Negative) 12/11/20 02:15 Urine Ketones Negative (Negative) 12/11/20 02:15 Urine Blood Negative (Negative) 12/11/20 02:15 Urine Nitrite Negative (Negative) 12/11/20 02:15 Urine Bilirubin Negative (Negative) 12/11/20 02:15 Urine Urobilinogen Negative (Negative) 12/11/20 02:15 Ur Leukocyte Esterase Negative (Negative) 12/11/20 02:15 POC Stool Occult Blood Negative (Negative) 12/10/20 22:22 COVID-19 Eval Order [facility]Rsv at [facility] 12/11/20 01:05 SARS-CoV-2 (PCR) NEGATIVE (Negative) 12/11/20 01:05 Influenza Type A (PCR) Negative (Neg) 12/11/20 01:05 Influenza Type B (PCR) Negative (Neg) 12/11/20 01:05 RSV (RT-PCR) Negative (Neg) 12/11/20 01:05 Blood Type O Positive 12/10/20 22:46 Antibody Screen NEGATIVE 12/10/20 22:[address] abdomen pelvis initial read: 6.4 cm infrarenal AAA with bifurcated endovascular repair. Mild hyperdensity within aneurysmal sac which could indicate an undergoing endoleak. Ectatic bilateral iliac arteries measuring 20 mm on the right and 80 mm on the left with endovascular repair. Bilateral renal cysts. No hydronephrosis. Cholecystectomy. No bowel obstruction. Nonvisualization of the appendix. Large amount of stool in the rectum which may represent constipation. Enlarged prostate. Fat-containing left inguinal hernia. Chest x-ray as per my capitation cardiomegaly EKG as per my interpretation : Rate 100, NSR, normal axis, diffuse T wave flattening, PVCs (1) Abdominal pain Abdominal location: generalized Qualified Code(s): R10.84 - Generalized abdominal pain
[2020-12-11] MEDS ORDERED: POLYETHYLENE (MIRALAX) 17 GM PACK PO STA (04:47)
[2020-12-11] MEDS ORDERED: HYDROmorphone INJ 0.5 MG/0.5 ML SYR IV PRN (05:54)
[2020-12-11] MEDS ORDERED: ACETAMINOPHEN 325 MG TAB PO PRN (05:54)
[2020-12-11] MEDS ORDERED: traMADol HCL 50 MG TABLET PO PRN (05:54)
[2020-12-11] MEDS ORDERED: LACTULOSE SYRUP 20 GM/30 ML UDC PO STA (05:54)
[2020-12-11] MEDS ORDERED: PROMETHAZINE HCL 12.5 MG in SODIUM CHLORIDE 0.9% 50 ML IV PRN (05:54)
[2020-12-11] MEDS ORDERED: POLYETHYLENE (MIRALAX) 17 GM PACK PO PRN (05:54)
[2020-12-11] MEDS: DOCUSATE SODIUM/SENNA 50/8.6MG TAB PO SCH ×3 (06:14→20:08)
[2020-12-11 06:35] LABS: Estimated Average Glucose 126 mg/dl
--- NOTE | 2020-12-11 06:42 | CT Scan Report ---
CT OF THE ABDOMEN AND PELVIS WITH CONTRAST CLINICAL HISTORY: Severe abdominal pain, rectal bleeding, known abdominal aneurysm. COMPARISON STUDY: CT of the abdomen and pelvis February 09, 2008. TECHNIQUE: Following IV administration of 93 mL of Optiray-320, axial images of the abdomen and pelvi s were obtained from the lung bases to the proximal femurs. Images were reviewed in the axial, sagitt al, and coronal planes. IV contrast was administered without complication. Automated exposure contro l was utilized for the study. A dose lowering technique was utilized adhering to the principles of A ABHIJIT. CT DOSE: 420.20 mGy.cm FINDINGS: No pneumatosis, free air or portal venous gas is present. Mild dilatation of the common lynda e duct is likely related to cholecystectomy. No peripancreatic infiltration is noted. There is no bruno creatic ductal dilatation. The spleen and adrenal glands are unremarkable. Note is made of a 3.9 cm c yst within the upper pole of the left kidney. There are multiple subcentimeter bilateral renal lesion s which are too small to characterize but likely reflect cysts. The appendix is surgically absent. Th ere is a moderate amount stool within the rectum. Note is made of sigmoid diverticulosis without evid ence for acute diverticulitis. Sensitivity for detection of colonic mucosal lesions is diminished giv en CT exam. There is no lymphadenopathy. Note is made of a bifurcated aortoiliac stent graft. Note is made of a 6.2 x 5.2 cm infrarenal abdominal aortic aneurysm. This contains hyperdense material cons istent with an endoleak. This is suboptimally assessed on this non-CTA exam. 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 There is no evidenc e for rupture. Fat-containing left inguinal hernia is present. There is no acute fracture or suspicio us lesion within the visualized skeletal structures. IMPRESSION: 1. Status post placement of a bifurcated aortoiliac stent graft. 6.2 x 5.2 cm infrarenal abdominal ao rtic aneurysm sac which contains hyperdense material consistent with an endoleak, suboptimally assess ed on this non-CTA exam. Comparison with prior postprocedural imaging is recommended. A short-term fo llow-up CTA is also suggested. No rupture. 2. 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 3. Colonic diverticulosis without evidence for acute diverticulitis. No bowel wall thickening. No bow el obstruction. 4. Moderate amount stool within the rectum. ACT 112: Negative or not required by law. Electronically signed by: Mateo Peterson M.D. 12/11/2020 6:41 AM
--- NOTE | 2020-12-11 06:52 | XRay Report ---
XR chest 1V portable HISTORY: 85 years-old Male weakness acute weakness COMPARISON: Chest radiograph 08/24/2019, CT abdomen and pelvis 12/10/2020. TECHNIQUE: Semierect AP view of the chest FINDINGS: Cardiac silhouette is enlarged. Calcified plaque of the thoracic aorta. Suggested emphysema with debug technician lazarus interstitial coarsening of the lung bases. There is no pneumothorax, pleural effusion, airspace c onsolidation or overt pulmonary edema. Bones of the chest appear grossly intact. Surgical clips proje ct over the abdominal right upper quadrant. IMPRESSION: No acute process. ACT 112: Negative or not required by law. The above report was generated using voice recognition software. It may contain grammatical, syntax o r spelling errors. Electronically signed by: Horace Hatch M.D. 12/11/2020 6:51 AM
[2020-12-11] MEDS: UMECLIDINIUM/VILANTEROL 62.5/25MCG 7 PUFFS/INHALER INH SCH (08:20)
[2020-12-11] MEDS: FLUTICASONE FUROATE 100MCG 14 PUFFS/INHALER INH SCH (08:20)
[2020-12-11] MEDS: FAMOTIDINE 20 MG TAB PO SCH ×2 (08:21→20:08)
[2020-12-11] MEDS: SERTRALINE HCL 50 MG TABLET PO SCH (08:21)
[2020-12-11] MEDS: MULTIVITAMIN TAB PO SCH (08:21)
[2020-12-11] MEDS: PANTOprazole 40 MG TAB PO SCH (08:21)
[2020-12-11 10:19] LABS: Basophils # (auto) 0.01 K/uL (0-0.2); Basophils % (auto) 0.1 %; Eosinophils # (auto) 0.02 K/uL (0-0.5); Eosinophils % (auto) 0.3 %; Hematocrit (blood only) 36.1 % (42-52); Hemoglobin 12.2 g/dL (14.0-18.0); Immature Granulocytes # (auto) 0.02 K/uL (0.00-0.02); Immature Granulocytes % (auto) 0.3 %; Lymphocytes # (auto) 1.97 K/uL (1.2-3.4); Lymphocytes % (auto) 24.8 %; Mean Corpuscular Hemoglobin 29.7 pg (25-34); Mean Corpuscular Hgb Conc 33.8 g/dL (32-36); Mean Corpuscular Volume 87.8 fL (80-100); Monocytes # (auto) 0.75 K/uL (0.11-0.59); Monocytes % (auto) 9.4 %; Neutrophils # (auto) 5.18 K/uL (1.4-6.5); Neutrophils % (auto) 65.1 %; Platelet Count 165 K/uL (130-400); RDW Coefficient of Variation 13.7 % (11.5-14.5); RDW Standard Deviation 44.1 fL (36.4-46.3); Red Blood Count 4.11 M/uL (4.7-6.1); White Blood Count 7.95 K/uL (4.8-10.8)
[2020-12-11 10:49] LABS: Albumin Level 3.4 gm/dl (3.4-5.0); BUN Creatinine Ratio 18.7 (10-20); Calcium 8.4 mg/dl (8.5-10.1); Creatinine Clr Calc Pharmacy 35.9 ml/min; Est GFR (African American) 45.2; Potassium 3.9 mmol/L (3.5-5.1)
[2020-12-11 10:53] LABS: Albumin Globulin Ratio 1.2 (0.9-2); Bilirubin,Total 0.4 mg/dl (0.2-1); Globulin 2.9 gm/dl (2.5-4.0); Total Protein 6.3 gm/dl (6.4-8.2)
[2020-12-11 11:54] LABS: Hematocrit (blood only) 39.2 % (42-52); Hemoglobin 13.2 g/dL (14.0-18.0)
--- NOTE | 2020-12-11 12:05 | Communication Note ---
Date of Service: December 11, 2020 Patient is doing okay. Hemoglobin is a stable, monitor hemoglobin twice daily. Denies any abdominal pain at the moment. Hemodynamically doing fine. Did speak with the daughter and updated. Will advance diet today. If hemoglobin remains stable tomorrow and patient is tolerating diet, can be discharged. Continue to work with PT/OT.
--- NOTE | 2020-12-11 15:04 | Electrocardiogram Report ---
Test Reason : Blood Pressure : / mmHG Vent. Rate : 099 BPM Atrial Rate : 099 BPM P-R Int : 214 ms QRS Dur : 084 ms QT Int : 350 ms P-R-T Axes : 033 017 033 degrees QTc Int : 449 ms Sinus rhythm with 1st degree A-V block with occasional Premature ventricular complexes Otherwise normal ECG When compared with ECG of 24-AUG-2019 14:23, Premature ventricular complexes are now Present Confirmed by Michael Bright ([id number]) on 12/11/2020 3:04:26 PM Referred By: REFERRED SELF Confirmed By:Michael Bright
[2020-12-11] MEDS: DOXAZosin MESYLATE 4 MG TAB PO SCH (20:08)
[2020-12-12 00:43] LABS: Basophils # (auto) 0.02 K/uL (0-0.2); Basophils % (auto) 0.3 %; Eosinophils # (auto) 0.12 K/uL (0-0.5); Eosinophils % (auto) 1.8 %; Hematocrit (blood only) 34.8 % (42-52); Hemoglobin 12.2 g/dL (14.0-18.0); Immature Granulocytes # (auto) 0.01 K/uL (0.00-0.02); Immature Granulocytes % (auto) 0.2 %; Lymphocytes # (auto) 2.33 K/uL (1.2-3.4); Lymphocytes % (auto) 35.5 %; Mean Corpuscular Hemoglobin 30.5 pg (25-34); Mean Corpuscular Hgb Conc 35.1 g/dL (32-36); Mean Platelet Volume 10.1 fL (7.4-10.4); Monocytes # (auto) 0.64 K/uL (0.11-0.59); Monocytes % (auto) 9.7 %; Neutrophils # (auto) 3.45 K/uL (1.4-6.5); Neutrophils % (auto) 52.5 %; Platelet Count 184 K/uL (130-400); RDW Coefficient of Variation 13.8 % (11.5-14.5); RDW Standard Deviation 44.6 fL (36.4-46.3); White Blood Count 6.57 K/uL (4.8-10.8)
[2020-12-12 07:16] LABS: BUN Creatinine Ratio 14.4 (10-20); Calcium 8.5 mg/dl (8.5-10.1); Creatinine Clr Calc Pharmacy 39.9 ml/min; Est GFR (African American) 51.5; Est GFR (Non-African American) 44.4; Magnesium 2.1 mg/dl (1.8-2.4); Potassium 3.9 mmol/L (3.5-5.1)
[2020-12-12] MEDS: PANTOprazole 40 MG TAB PO SCH (08:12)
[2020-12-12] MEDS: FAMOTIDINE 20 MG TAB PO SCH ×2 (08:12→21:57)
[2020-12-12] MEDS: MULTIVITAMIN TAB PO SCH (08:12)
[2020-12-12] MEDS: UMECLIDINIUM/VILANTEROL 62.5/25MCG 7 PUFFS/INHALER INH SCH (08:12)
[2020-12-12] MEDS: FLUTICASONE FUROATE 100MCG 14 PUFFS/INHALER INH SCH (08:12)
[2020-12-12] MEDS: SERTRALINE HCL 50 MG TABLET PO SCH (08:12)
[2020-12-12] MEDS: DOCUSATE SODIUM/SENNA 50/8.6MG TAB PO SCH ×2 (08:13→21:57)
[2020-12-12 12:57] LABS: Basophils # (auto) 0.04 K/uL (0-0.2); Basophils % (auto) 0.6 %; Eosinophils # (auto) 0.18 K/uL (0-0.5); Eosinophils % (auto) 2.7 %; Hematocrit (blood only) 35.8 % (42-52); Hemoglobin 12.6 g/dL (14.0-18.0); Immature Granulocytes # (auto) 0.01 K/uL (0.00-0.02); Immature Granulocytes % (auto) 0.2 %; Lymphocytes # (auto) 2.48 K/uL (1.2-3.4); Lymphocytes % (auto) 37.5 %; Mean Corpuscular Hemoglobin 30.5 pg (25-34); Mean Corpuscular Hgb Conc 35.2 g/dL (32-36); Mean Corpuscular Volume 86.7 fL (80-100); Mean Platelet Volume 10.5 fL (7.4-10.4); Monocytes % (auto) 12.1 %; Neutrophils # (auto) 3.11 K/uL (1.4-6.5); Neutrophils % (auto) 46.9 %; Platelet Count 183 K/uL (130-400); RDW Coefficient of Variation 13.8 % (11.5-14.5); RDW Standard Deviation 44.1 fL (36.4-46.3); Red Blood Count 4.13 M/uL (4.7-6.1); White Blood Count 6.62 K/uL (4.8-10.8)
--- NOTE | 2020-12-12 13:32 | Hospitalist Progress Note ---
Date of Service December 12, 2020 Assessment & Plan (1) Abdominal pain: CT of the abdomen and pelvis; status post placement of a bifurcated aortobiiliac stent graft. 6.2 x 5.2 cm infrarenal abdominal aortic aneurysm sac which contains hyperdense material consistent with endoleak Outpatient [facility] vascular surgery follow-up (Case discussed with [facility] vascular surgeon match up person, Dr. Slaughter. He does not think patient's abdominal pain is from AAA endoleak. Patient also a poor candidate for vascular surgery as per Dr. Slaughter.) Dr Delvalle communicated [facility] vascular surgeon recommendations to daughter regarding AAA as well. Denies any more pain as of this morning Rectal bleed L GIB as per family account Possibly from fecal retention, hx diverticulosis, hemorrhoids from last colonoscopy No more bleeding since admission Hemoglobin currently stable. Appropriate to hold home aspirin given L GIB Will monitor CBC Bowel regimen ARF on CKD secondary to illness AAA with possible endoleak hx AAA repair (01/2019) Some enlargement compared to last imaging from 2 months ago. Patient follows with [facility] vascular surgery hx renal artery stenosis as per records hx CAD status post stent No acute cardiac symptoms COPD, pulmonary status at baseline No exacerbation Hypertension, elevated secondary discomfort Blood pressure is controlled Hyperlipidemia, statin intolerance as per records Chronic anemia, hemoglobin better than baseline likely secondary to hemoconcentration Hemoglobin stable at 12.6 as of 12/12/2020 Hyperglycemia likely prediabetes, hemoglobin A1c of 6.13 February 2020 Dementia, patient has a pleasant baseline No acute delirium Past tobacco abuse DVT prophylaxis with SCDs Re: GI bleed DNR as per daughter/POA Ms. Negrita Sharp. She requests updates from providers thru [phone]. Admission and Anticipated Discharge Date Admission Date: December 11, 2020 Subjective 12/12/2020 The patient was seen and examined in medical telemetry Was admitted yesterday with abdominal pain and rectal bleed Denies any more pain as of today and bleeding seems to be stopped Denies any other symptoms Review of Systems Review of Systems: All systems reviewed and are unremarkable except as noted below Gastrointestinal: no abdominal pain, no bloating, no nausea, no vomiting, no diarrhea/loose stools and no blood in stools Physical Exam Physical Exam: Lying in bed comfortably Constitutional: well developed and well nourished; not ill appearing Eyes: PERRL, conjunctivae normal, anicteric sclerae ENMT: external ear and nose normal, oropharynx normal Neck: trachea midline, no thyromegaly Respiratory: no respiratory distress Auscultation: lungs clear to auscultation bilaterally Cardiovascular: Rate/Rhythm: regular rate and regular rhythm Heart Sounds: no murmur Extremities: no edema Gastrointestinal (Abdomen): Inspection/Auscultation: normal bowel sounds; abdomen not distended Percussion/Palpation: abdomen soft; abdomen nontender Musculoskeletal: No acute arthritis in any joint Neurologic: Alert, awake and oriented x3. No focal sensory no motor deficit appreciated Psychiatric: A+Ox3, euthymic affect Results & Data Results & Data ([facility]) Vital Signs (Past 12 Hours) Vital Signs Temp Pulse Pulse Resp BP Pulse Ox 12/12/20 11:42 36.7 C 53 L 18 110/62 98 12/12/20 07:39 37.3 C 56 L 18 144/75 H 95 12/12/20 06:05 70 12/12/20 04:16 36.3 C L 65 18 144/73 H 92 Laboratory Results Short CBC 12/12/20 12/12/20 Range/Units 00:24 06:36 WBC 6.57 6.62 (4.8-10.8) K/uL Hgb 12.2 L 12.6 L (14.0-18.0) g/dL Hct 34.8 L 35.8 L (42-52) % Plt Count 184 183 (130-400) K/uL BMP 12/12/20 06:35 Sodium 141 Potassium 3.9 Chloride 112 H Carbon Dioxide 24 BUN 21 H Creatinine 1.42 H Glucose 87 Calcium 8.5 Medications Administered Current Inpatient Medications Acetaminophen (Acetaminophen 325 Mg Tab) 650 mg PO Q4H PRN PRN Reason: Pain or Fever Stop: 01/10/21 05:53 Doxazosin Mesylate (Doxazosin Mesylate 4 Mg Tab) 4 mg PO HS RABIA Stop: 01/10/21 20:59 Last Admin: 12/11/20 20:08 Dose: 4 mg Documented by: Famotidine (Famotidine 20 Mg Tab) 20 mg PO BID RABIA Stop: 01/10/21 08:59 Last Admin: 12/12/20 08:12 Dose: 20 mg Documented by: Fluticasone Furoate (Fluticasone Furoate 100mcg 14 Puffs/Inhaler) 1 puffs INH DAILY RABIA Stop: 01/10/21 08:59 Last Admin: 12/12/20 08:12 Dose: 1 puffs Documented by: Hydromorphone HCl (Hydromorphone Inj 0.5 Mg/0.5 Ml Syr) 0.25 mg IV Q4H PRN PRN Reason: Pain Stop: 12/25/20 05:53 Promethazine HCl 12.5 mg/ (Sodium Chloride) 50.5 mls @ 202 mls/hr IV Q6H PRN PRN Reason: Nausea And Vomiting Stop: 01/10/21 05:53 Multivitamins (Multivitamin Tab) 1 tab PO DAILY RABIA Stop: 01/10/21 08:59 Last Admin: 12/12/20 08:12 Dose: 1 tab Documented by: Pantoprazole Sodium (Pantoprazole 40 Mg Tab) 40 mg PO DAILY RABIA Stop: 01/10/21 08:59 Last Admin: 12/12/20 08:12 Dose: 40 mg Documented by: Polyethylene Glycol (Polyethylene (Miralax) 17 Gm Pack) 17 gm PO DAILY PRN PRN Reason: Constipation Stop: 01/10/21 05:53 Senna/Docusate Sodium (Docusate Sodium/Senna 50/8.6mg Tab) 1 tab PO BID RABIA Stop: 01/10/21 04:59 Last Admin: 12/12/20 08:13 Dose: Not Given Documented by: Sertraline HCl (Sertraline Hcl 50 Mg Tablet) 50 mg PO DAILY RABIA Stop: 01/10/21 08:59 Last Admin: 12/12/20 08:12 Dose: 50 mg Documented by: Tramadol HCl (Tramadol Hcl 50 Mg Tablet) 25 - 50 mg PO Q4H PRN PRN Reason: Pain Stop: 01/10/21 05:53 Umeclidinium/Vilanterol (Umeclidinium/Vilanterol 62.5/25mcg 7 Puffs/Inhaler) 1 puffs INH DAILY RABIA Stop: 01/10/21 08:59 Last Admin: 12/12/20 08:12 Dose: 1 puffs Documented by: (1) Abdominal pain Abdominal location: generalized Qualified Code(s): R10.84 - Generalized abdominal pain
[2020-12-12] MEDS ORDERED: hydrALAZINE HCL 20 MG/ML VIAL IV STA (16:56)
[2020-12-12] MEDS: amLODIPine BESYLATE 5 MG TAB PO SCH (17:31)
[2020-12-12] MEDS ORDERED: NITROGLYCERIN 2% OINTMENT 30GM TUBE EXT STA (18:26)
[2020-12-12] MEDS: DOXAZosin MESYLATE 4 MG TAB PO SCH (21:57)
[2020-12-13 00:27] LABS: Basophils # (auto) 0.03 K/uL (0-0.2); Basophils % (auto) 0.4 %; Eosinophils # (auto) 0.16 K/uL (0-0.5); Eosinophils % (auto) 2.2 %; Hematocrit (blood only) 38.1 % (42-52); Hemoglobin 13.5 g/dL (14.0-18.0); Immature Granulocytes # (auto) 0.01 K/uL (0.00-0.02); Immature Granulocytes % (auto) 0.1 %; Lymphocytes # (auto) 2.56 K/uL (1.2-3.4); Lymphocytes % (auto) 35.6 %; Mean Corpuscular Hemoglobin 30.9 pg (25-34); Mean Corpuscular Hgb Conc 35.4 g/dL (32-36); Mean Corpuscular Volume 87.2 fL (80-100); Mean Platelet Volume 9.9 fL (7.4-10.4); Monocytes # (auto) 0.69 K/uL (0.11-0.59); Monocytes % (auto) 9.6 %; Neutrophils # (auto) 3.74 K/uL (1.4-6.5); Neutrophils % (auto) 52.1 %; Platelet Count 195 K/uL (130-400); RDW Coefficient of Variation 13.8 % (11.5-14.5); RDW Standard Deviation 44.5 fL (36.4-46.3); Red Blood Count 4.37 M/uL (4.7-6.1); White Blood Count 7.19 K/uL (4.8-10.8)
[2020-12-13 06:04] LABS: Basophils # (auto) 0.02 K/uL (0-0.2); Basophils % (auto) 0.3 %; Eosinophils # (auto) 0.11 K/uL (0-0.5); Eosinophils % (auto) 1.6 %; Hematocrit (blood only) 36.9 % (42-52); Hemoglobin 12.9 g/dL (14.0-18.0); Immature Granulocytes # (auto) 0.01 K/uL (0.00-0.02); Immature Granulocytes % (auto) 0.1 %; Lymphocytes # (auto) 2.25 K/uL (1.2-3.4); Lymphocytes % (auto) 33.2 %; Mean Corpuscular Hemoglobin 30.6 pg (25-34); Mean Corpuscular Volume 87.6 fL (80-100); Mean Platelet Volume 10.1 fL (7.4-10.4); Monocytes # (auto) 0.56 K/uL (0.11-0.59); Monocytes % (auto) 8.3 %; Neutrophils # (auto) 3.82 K/uL (1.4-6.5); Neutrophils % (auto) 56.5 %; Platelet Count 188 K/uL (130-400); RDW Coefficient of Variation 13.9 % (11.5-14.5); RDW Standard Deviation 44.5 fL (36.4-46.3); Red Blood Count 4.21 M/uL (4.7-6.1); White Blood Count 6.77 K/uL (4.8-10.8)
[2020-12-13 06:37] LABS: BUN Creatinine Ratio 14.1 (10-20); Calcium 8.6 mg/dl (8.5-10.1); Creatinine Clr Calc Pharmacy 36.5 ml/min; Est GFR (African American) 46.3; Est GFR (Non-African American) 39.9; Potassium 4.1 mmol/L (3.5-5.1)
[2020-12-13] MEDS: DOCUSATE SODIUM/SENNA 50/8.6MG TAB PO SCH ×2 (08:26→20:51)
[2020-12-13] MEDS: FAMOTIDINE 20 MG TAB PO SCH ×2 (08:26→20:50)
[2020-12-13] MEDS: FLUTICASONE FUROATE 100MCG 14 PUFFS/INHALER INH SCH (08:26)
[2020-12-13] MEDS: UMECLIDINIUM/VILANTEROL 62.5/25MCG 7 PUFFS/INHALER INH SCH (08:26)
[2020-12-13] MEDS: amLODIPine BESYLATE 5 MG TAB PO SCH (08:26)
[2020-12-13] MEDS: PANTOprazole 40 MG TAB PO SCH (08:26)
[2020-12-13] MEDS: MULTIVITAMIN TAB PO SCH (08:26)
[2020-12-13] MEDS: SERTRALINE HCL 50 MG TABLET PO SCH (08:26)
--- NOTE | 2020-12-13 14:28 | Hospitalist Progress Note ---
Date of Service December 13, 2020 Assessment & Plan (1) Abdominal pain: CT of the abdomen and pelvis; status post placement of a bifurcated aortobiiliac stent graft. 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 Slaughter. He does not think patient's abdominal pain is from AAA endoleak. Patient also a poor candidate for vascular surgery as per Dr. Slaughter.) Dr Delvalle communicated [facility] vascular surgeon recommendations to daughter regarding AAA as well. Denies any more pain as of this morning Rectal bleed L GIB as per family account Possibly from fecal retention, hx diverticulosis, hemorrhoids from last colonoscopy No more bleeding since admission Hemoglobin currently stable. Appropriate to hold home aspirin given L GIB No more rectal bleed-hemoglobin remained stable at 12.9 Hypertensive Episode Pleasantly confused Could be related to very high blood pressure yesterday No evidence of neurological deficit The blood pressure is reasonably controlled Acute Kidney Injury on CKD Stage 3 Baseline Creatinine 1.5 Getting gentle IV fluid Monitor PRP AAA with possible endoleak hx AAA repair (01/2019) Some enlargement compared to last imaging from 2 months ago. Patient follows with [facility] vascular surgery hx renal artery stenosis as per records hx CAD status post stent No acute cardiac symptoms COPD, pulmonary status at baseline No exacerbation Hypertension, elevated secondary discomfort Blood pressure is controlled Hyperlipidemia, statin intolerance as per records Chronic anemia, hemoglobin better than baseline likely secondary to hemoconcentration Hemoglobin stable at 12.6 as of 12/12/2020 Hyperglycemia likely prediabetes, hemoglobin A1c of 6.13 February 2020 Dementia, patient has a pleasant baseline No acute delirium Past tobacco abuse DVT prophylaxis with SCDs Re: GI bleed DNR as per daughter/POA Ms. Negrita Sharp. She requests updates from providers thru [phone]. Likely discharge tomorrow or day after Admission and Anticipated Discharge Date Admission Date: December 12, 2020 Subjective 12/12/2020 The patient was seen and examined in medical telemetry Was admitted yesterday with abdominal pain and rectal bleed Denies any more pain as of today and bleeding seems to be stopped Denies any other symptoms 12/13/2020 The patient was seen and examined in medical telemetry unit He is confused to some extent today Denies any significant symptoms otherwise Review of Systems Review of Systems: All systems reviewed and are unremarkable except as noted below Physical Exam Physical Exam: Lying in bed comfortably Constitutional: well developed and well nourished; not ill appearing Eyes: PERRL, conjunctivae normal, anicteric sclerae ENMT: external ear and nose normal, oropharynx normal Neck: trachea midline, no thyromegaly Respiratory: no respiratory distress Auscultation: lungs clear to auscultation bilaterally Cardiovascular: Rate/Rhythm: regular rate and regular rhythm Heart Sounds: no murmur Extremities: no edema Gastrointestinal (Abdomen): Inspection/Auscultation: normal bowel sounds; abdomen not distended Percussion/Palpation: abdomen soft; abdomen nontender Musculoskeletal: No acute arthritis in any joint Neurologic: Alert and awake. Pleasantly confused. Generally weak but no focal neuro deficit Results & Data Results & Data ([facility]) Vital Signs (Past 12 Hours) Vital Signs Temp Pulse Resp BP BP Pulse Ox 12/13/20 07:41 36.7 C 76 18 153/78 H 94 12/13/20 04:01 36.6 C 97 H 20 133/79 93 Laboratory Results Short CBC 12/13/20 12/13/20 Range/Units 00:08 05:30 WBC 7.19 6.77 (4.8-10.8) K/uL Hgb 13.5 L 12.9 L (14.0-18.0) g/dL Hct 38.1 L 36.9 L (42-52) % Plt Count 195 188 (130-400) K/uL BMP 12/13/20 05:30 Sodium 140 Potassium 4.1 Chloride 109 H Carbon Dioxide 26 BUN 22 H Creatinine 1.55 H Glucose 104 H Calcium 8.6 Medications Administered Current Inpatient Medications Acetaminophen (Acetaminophen 325 Mg Tab) 650 mg PO Q4H PRN PRN Reason: Pain or Fever Stop: 01/10/21 05:53 Amlodipine Besylate (Amlodipine Besylate 5 Mg Tab) 5 mg PO QAM [facility] Stop: 01/11/21 16:59 Last Admin: 12/13/20 08:26 Dose: 5 mg Documented by: Doxazosin Mesylate (Doxazosin Mesylate 4 Mg Tab) 4 mg PO HS [facility] Stop: 01/10/21 20:59 Last Admin: 12/12/20 21:57 Dose: 4 mg Documented by: Famotidine (Famotidine 20 Mg Tab) 20 mg PO BID [facility] Stop: 01/10/21 08:59 Last Admin: 12/13/20 08:26 Dose: 20 mg Documented by: Fluticasone Furoate (Fluticasone Furoate 100mcg 14 Puffs/Inhaler) 1 puffs INH DAILY RABIA Stop: 01/10/21 08:59 Last Admin: 12/13/20 08:26 Dose: 1 puffs Documented by: Hydromorphone HCl (Hydromorphone Inj 0.5 Mg/0.5 Ml Syr) 0.25 mg IV Q4H PRN PRN Reason: Pain Stop: 12/25/20 05:53 Promethazine HCl 12.5 mg/ (Sodium Chloride) 50.5 mls @ 202 mls/hr IV Q6H PRN PRN Reason: Nausea And Vomiting Stop: 01/10/21 05:53 Multivitamins (Multivitamin Tab) 1 tab PO DAILY RABIA Stop: 01/10/21 08:59 Last Admin: 12/13/20 08:26 Dose: 1 tab Documented by: Pantoprazole Sodium (Pantoprazole 40 Mg Tab) 40 mg PO DAILY [facility] Stop: 01/10/21 08:59 Last Admin: 12/13/20 08:26 Dose: 40 mg Documented by: Polyethylene Glycol (Polyethylene (Miralax) 17 Gm Pack) 17 gm PO DAILY PRN PRN Reason: Constipation Stop: 01/10/21 05:53 Senna/Docusate Sodium (Docusate Sodium/Senna 50/8.6mg Tab) 1 tab PO BID [facility]IA Stop: 01/10/21 04:59 Last Admin: 12/13/20 08:26 Dose: 1 tab Documented by: Sertraline HCl (Sertraline Hcl 50 Mg Tablet) 50 mg PO DAILY [facility]IA Stop: 01/10/21 08:59 Last Admin: 12/13/20 08:26 Dose: 50 mg Documented by: Tramadol HCl (Tramadol Hcl 50 Mg Tablet) 25 - 50 mg PO Q4H PRN PRN Reason: Pain Stop: 01/10/21 05:53 Umeclidinium/Vilanterol (Umeclidinium/Vilanterol 62.5/25mcg 7 Puffs/Inhaler) 1 puffs INH DAILY [facility]ABIA Stop: 01/10/21 08:59 Last Admin: 12/13/20 08:26 Dose: 1 puffs Documented by: (1) Abdominal pain Abdominal location: generalized Qualified Code(s): R10.84 - Generalized abdominal pain
[2020-12-13] MEDS: DOXAZosin MESYLATE 4 MG TAB PO SCH (20:51)
[2020-12-14] MEDS: amLODIPine BESYLATE 5 MG TAB PO SCH (08:15)
[2020-12-14] MEDS: FLUTICASONE FUROATE 100MCG 14 PUFFS/INHALER INH SCH (08:15)
[2020-12-14] MEDS: SERTRALINE HCL 50 MG TABLET PO SCH (08:15)
[2020-12-14] MEDS: UMECLIDINIUM/VILANTEROL 62.5/25MCG 7 PUFFS/INHALER INH SCH (08:15)
[2020-12-14] MEDS: FAMOTIDINE 20 MG TAB PO SCH ×2 (08:15→20:47)
[2020-12-14] MEDS: DOCUSATE SODIUM/SENNA 50/8.6MG TAB PO SCH ×2 (08:15→20:47)
[2020-12-14] MEDS: PANTOprazole 40 MG TAB PO SCH (08:15)
[2020-12-14] MEDS: MULTIVITAMIN TAB PO SCH (08:15)
--- NOTE | 2020-12-14 15:01 | Hospitalist Progress Note ---
Date of Service December 14, 2020 Assessment & Plan (1) Abdominal pain: CT of the abdomen and pelvis; status post placement of a bifurcated aortobiiliac stent graft. 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 Slaughter. He does not think patient's abdominal pain is from AAA endoleak. Patient also a poor candidate for vascular surgery as per Dr. Slaughter.) Dr Delvalle communicated [facility] vascular surgeon recommendations to daughter regarding AAA as well. Denies any more pain as of this morning No more pain since admission Rectal bleed L GIB as per family account Possibly from fecal retention, hx diverticulosis, hemorrhoids from last colonoscopy No more bleeding since admission Hemoglobin currently stable. Appropriate to hold home aspirin given L GIB No more rectal bleed-hemoglobin remained stable at 12.9 Hypertensive Episode Pleasantly confused Could be related to very high blood pressure yesterday No evidence of neurological deficit The blood pressure is reasonably controlled His blood pressure is well controlled with current medications Acute Kidney Injury on CKD Stage 3 Baseline Creatinine 1.5 Getting gentle IV fluid Monitor PRP-creatinine is slightly up at 1.55 He was advised to drink more fluid AAA with possible endoleak hx AAA repair (01/2019) Some enlargement compared to last imaging from 2 months ago. Patient follows with [facility] vascular surgery hx renal artery stenosis as per records hx CAD status post stent No acute cardiac symptoms COPD, pulmonary status at baseline No exacerbation Hypertension, elevated secondary discomfort Blood pressure is controlled Hyperlipidemia, statin intolerance as per records Chronic anemia, hemoglobin better than baseline likely secondary to hemoconce ntration Hemoglobin stable at 12.6 as of 12/12/2020 Hyperglycemia likely prediabetes, hemoglobin A1c of 6.13 February 2020 Dementia, patient has a pleasant baseline No acute delirium Past tobacco abuse DVT prophylaxis with SCDs Re: GI bleed DNR as per daughter/POA Ms. Negrita Sharp. She requests updates from providers thru [phone]. He will need to stay till Thursday before he gets approval to go to [facility] Admission and Anticipated Discharge Date Admission Date: December 12, 2020 Subjective 12/12/2020 The patient was seen and examined in medical telemetry Was admitted yesterday with abdominal pain and rectal bleed Denies any more pain as of today and bleeding seems to be stopped Denies any other symptoms 12/13/2020 The patient was seen and examined in medical telemetry unit He is confused to some extent today Denies any significant symptoms otherwise 12/14/2020 The patient was seen and examined in medical telemetry unit He remains stable with occasional confusion Denies any symptoms during my examination He has been waiting to go to [facility] but requires approval Did not have any more rectal bleed or abdominal pain Review of Systems Review of Systems: All systems reviewed and are unremarkable except as noted below Physical Exam Physical Exam: Sitting at the edge of the bed without any symptoms Constitutional: well developed and well nourished; not ill appearing Eyes: PERRL, conjunctivae normal, anicteric sclerae ENMT: external ear and nose normal, oropharynx normal Neck: trachea midline, no thyromegaly Respiratory: no respiratory distress Auscultation: lungs clear to auscultation bilaterally Cardiovascular: Rate/Rhythm: regular rate and regular rhythm Heart Sounds: no murmur Extremities: no edema Gastrointestinal (Abdomen): Inspection/Auscultation: normal bowel sounds; abdomen not distended Percussion/Palpation: abdomen soft; abdomen nontender Musculoskeletal: No acute arthritis in any joint Neurologic: Alert and awake. Pleasantly confused. Generally weak without any focal weakness Psychiatric: A+Ox3, euthymic affect Results & Data Results & Data ([facility]) Vital Signs (Past 12 Hours) Vital Signs Temp Pulse Pulse Resp BP Pulse Ox 12/14/20 08:00 36.5 C 80 18 137/61 94 12/14/20 03:02 80 Medications Administered Current Inpatient Medications Acetaminophen (Acetaminophen 325 Mg Tab) 650 mg PO Q4H PRN PRN Reason: Pain or Fever Stop: 01/10/21 05:53 Last Admin: 12/13/20 15:53 Dose: 650 mg Documented by: Amlodipine Besylate (Amlodipine Besylate 5 Mg Tab) [facility] Stop: 01/11/21 16:59 Last Admin: 12/14/20 08:15 Dose: 5 mg Documented by: Doxazosin Mesylate (Doxazosin Mesylate 4 Mg Tab) 4 mg PO [facility] Stop: 01/10/21 20:59 Last Admin: 12/13/20 20:51 Dose: 4 mg Documented by: Famotidine (Famotidine 20 Mg Tab) 20 mg PO BID RABIA Stop: 01/10/21 08:59 Last Admin: 12/14/20 08:15 Dose: 20 mg Documented by: Fluticasone Furoate (Fluticasone Furoate 100mcg 14 Puffs/Inhaler) 1 puffs INH DAILY RABIA Stop: 01/10/21 08:59 Last Admin: 12/14/20 08:15 Dose: 1 puffs Documented by: Hydromorphone HCl (Hydromorphone Inj 0.5 Mg/0.5 Ml Syr) 0.25 mg IV Q4H PRN PRN Reason: Pain Stop: 12/25/20 05:53 Promethazine HCl 12.5 mg/ (Sodium Chloride) 50.5 mls @ 202 mls/hr IV Q6H PRN PRN Reason: Nausea And Vomiting Stop: 01/10/21 05:53 Multivitamins (Multivitamin Tab) 1 tab PO DAILY RABIA Stop: 01/10/21 08:59 Last Admin: 12/14/20 08:15 Dose: 1 tab Documented by: Pantoprazole Sodium (Pantoprazole 40 Mg Tab) 40 mg PO DAILY RABIA Stop: 01/10/21 08:59 Last Admin: 12/14/20 08:15 Dose: 40 mg Documented by: Polyethylene Glycol (Polyethylene (Miralax) 17 Gm Pack) 17 gm PO DAILY PRN PRN Reason: Constipation Stop: 01/10/21 05:53 Senna/Docusate Sodium (Docusate Sodium/Senna 50/8.6mg Tab) 1 tab PO BID RABIA Stop: 01/10/21 04:59 Last Admin: 12/14/20 08:15 Dose: 1 tab Documented by: Sertraline HCl (Sertraline Hcl 50 Mg Tablet) 50 mg PO DAILY RABIA Stop: 01/10/21 08:59 Last Admin: 12/14/20 08:15 Dose: 50 mg Documented by: Tramadol HCl (Tramadol Hcl 50 Mg Tablet) 25 - 50 mg PO Q4H PRN PRN Reason: Pain Stop: 01/10/21 05:53 Umeclidinium/Vilanterol (Umeclidinium/Vilanterol 62.5/25mcg 7 Puffs/Inhaler) 1 puffs INH DAILY RABIA Stop: 01/10/21 08:59 Last Admin: 12/14/20 08:15 Dose: 1 puffs Documented by: (1) Abdominal pain Abdominal location: generalized Qualified Code(s): R10.84 - Generalized abdominal pain
[2020-12-14] MEDS: DOXAZosin MESYLATE 4 MG TAB PO SCH (20:45)
[2020-12-15] MEDS: UMECLIDINIUM/VILANTEROL 62.5/25MCG 7 PUFFS/INHALER INH SCH (07:57)
[2020-12-15] MEDS: FLUTICASONE FUROATE 100MCG 14 PUFFS/INHALER INH SCH (07:57)
[2020-12-15] MEDS: FAMOTIDINE 20 MG TAB PO SCH ×2 (07:58→20:56)
[2020-12-15] MEDS: MULTIVITAMIN TAB PO SCH (07:59)
[2020-12-15] MEDS: PANTOprazole 40 MG TAB PO SCH (08:00)
[2020-12-15] MEDS: SERTRALINE HCL 50 MG TABLET PO SCH (08:00)
[2020-12-15] MEDS: amLODIPine BESYLATE 5 MG TAB PO SCH (08:00)
[2020-12-15] MEDS: DOCUSATE SODIUM/SENNA 50/8.6MG TAB PO SCH ×2 (08:01→20:55)
--- NOTE | 2020-12-15 13:13 | Hospitalist Progress Note ---
Date of Service December 15, 2020 Assessment & Plan (1) Abdominal pain: CT of the abdomen and pelvis; status post placement of a bifurcated aortobiiliac stent graft. 6.2 x 5.2 cm infrarenal abdominal aortic aneurysm sac which contains hyperdense material consistent with endoleak Outpatient [facility] vascular surgery follow-up (Case discussed with [facility] vascular surgeon environmental technician, Dr. Slaughter. He does not think patient's abdominal pain is from AAA endoleak. Patient also a poor candidate for vascular surgery as per Dr. Slaughter.) Dr Delvalle communicated [facility] vascular surgeon recommendations to daughter regarding AAA as well. Denies any more abdominal pain Rectal bleed L GIB as per family account Possibly from fecal retention, hx diverticulosis, hemorrhoids from last colonoscopy No more bleeding since admission Hemoglobin currently stable. Appropriate to hold home aspirin given L GIB No more rectal bleed-hemoglobin remained stable at 12.9 Hypertensive Episode Pleasantly confused Could be related to very high blood pressure yesterday No evidence of neurological deficit The blood pressure is reasonably controlled His blood pressure is well controlled with current medications Blood pressure remains well controlled Acute Kidney Injury on CKD Stage 3 Baseline Creatinine 1.5 Getting gentle IV fluid Monitor PRP-creatinine is slightly up at 1.55 He was advised to drink more fluid We will check PRP tomorrow AAA with possible endoleak hx AAA repair (01/2019) Some enlargement compared to last imaging from 2 months ago. Patient follows with [facility] vascular surgery hx renal artery stenosis as per records hx CAD status post stent No acute cardiac symptoms COPD, pulmonary status at baseline No exacerbation Hypertension, elevated secondary discomfort Blood pressure is controlled Hyperlipidemia, statin intolerance as per records Chronic anemia, hemoglobin better than baseline likely secondary to hemoconcentration Hemoglobin stable at 12.6 as of 12/12/2020 Hyperglycemia likely prediabetes, hemoglobin A1c of 6.13 February 2020 Dementia, patient has a pleasant baseline No acute delirium Past tobacco abuse DVT prophylaxis with SCDs Re: GI bleed DNR as per daughter/POA Ms. Negrita Sharp. She requests updates from providers thru [phone]. He will need to stay till Thursday before he gets approval to go to [facility] Admission and Anticipated Discharge Date Admission Date: December 12, 2020 Subjective 12/12/2020 The patient was seen and examined in medical telemetry Was admitted yesterday with abdominal pain and rectal bleed Denies any more pain as of today and bleeding seems to be stopped Denies any other symptoms 12/13/2020 The patient was seen and examined in medical telemetry unit He is confused to some extent today Denies any significant symptoms otherwise 12/14/2020 The patient was seen and examined in medical telemetry unit He remains stable with occasional confusion Denies any symptoms during my examination He has been waiting to go to [facility] but requires approval Did not have any more rectal bleed or abdominal pain 12/15/2020 The patient was seen and examined in medical telemetry unit He remains pleasantly confused but denies any acute symptoms No more blood in the stool and he remains hemodynamically stable Review of Systems Review of Systems: All systems reviewed and are unremarkable except as noted below Physical Exam Physical Exam: Sitting at the edge of the bed without any symptoms Constitutional: well developed and well nourished; not ill appearing Eyes: PERRL, conjunctivae normal, anicteric sclerae ENMT: external ear and nose normal, oropharynx normal Neck: trachea midline, no thyromegaly Respiratory: no respiratory distress Auscultation: lungs clear to auscultation bilaterally Cardiovascular: Rate/Rhythm: regular rate and regular rhythm Heart Sounds: no murmur Extremities: no edema Gastrointestinal (Abdomen): Inspection/Auscultation: normal bowel sounds; abdomen not distended Percussion/Palpation: abdomen soft; abdomen nontender Musculoskeletal: No acute arthritis in any joint Neurologic: Alert and awake. Pleasantly confused. No focal neuro deficit Lymphatic: no cervical or axillary lymphadenopathy Results & Data Results & Data ([facility]) Vital Signs (Past 12 Hours) Vital Signs Temp Pulse Resp BP Pulse Ox 12/15/20 11:34 36.7 C 76 18 106/56 L 93 12/15/20 06:28 36.8 C 85 18 155/78 H 91 12/15/20 03:21 36.8 C 76 18 129/70 90 Medications Administered Current Inpatient Medications Acetaminophen (Acetaminophen 325 Mg Tab) 650 mg PO Q4H PRN PRN Reason: Pain or Fever Stop: 01/10/21 05:53 Last Admin: 12/13/20 15:53 Dose: 650 mg Documented by: Amlodipine Besylate (Amlodipine Besylate 5 Mg Tab) [facility] [place] Stop: 01/11/21 16:59 Last Admin: 12/15/20 08:00 Dose: 5 mg Documented by: Doxazosin Mesylate (Doxazosin Mesylate 4 Mg Tab) 4 mg PO HS [facility] Stop: 01/10/21 20:59 Last Admin: 12/14/20 20:45 Dose: 4 mg Documented by: Famotidine (Famotidine 20 Mg Tab) 20 mg PO BID RABIA Stop: 01/10/21 08:59 Last Admin: 12/15/20 07:58 Dose: 20 mg Documented by: Fluticasone Furoate (Fluticasone Furoate 100mcg 14 Puffs/Inhaler) 1 puffs INH DAILY RABIA Stop: 01/10/21 08:59 Last Admin: 12/15/20 07:57 Dose: 1 puffs Documented by: Hydromorphone HCl (Hydromorphone Inj 0.5 Mg/0.5 Ml Syr) 0.25 mg IV Q4H PRN PRN Reason: Pain Stop: 12/25/20 05:53 Promethazine HCl 12.5 mg/ (Sodium Chloride) 50.5 mls @ 202 mls/hr IV Q6H PRN PRN Reason: Nausea And Vomiting Stop: 01/10/21 05:53 Multivitamins (Multivitamin Tab) 1 tab PO DAILY RABIA Stop: 01/10/21 08:59 Last Admin: 12/15/20 07:59 Dose: 1 tab Documented by: Pantoprazole Sodium (Pantoprazole 40 Mg Tab) 40 mg PO DAILY [facility] Stop: 01/10/21 08:59 Last Admin: 12/15/20 08:00 Dose: 40 mg Documented by: Polyethylene Glycol (Polyethylene (Miralax) 17 Gm Pack) 17 gm PO DAILY PRN PRN Reason: Constipation Stop: 01/10/21 05:53 Senna/Docusate Sodium (Docusate Sodium/Senna 50/8.6mg Tab) 1 tab PO BID RABIA Stop: 01/10/21 04:59 Last Admin: 12/15/20 08:01 Dose: 1 tab Documented by: Sertraline HCl (Sertraline Hcl 50 Mg Tablet) 50 mg PO DAILY [facility] Stop: 01/10/21 08:59 Last Admin: 12/15/20 08:00 Dose: 50 mg Documented by: Tramadol HCl (Tramadol Hcl 50 Mg Tablet) 25 - 50 mg PO Q4H PRN PRN Reason: Pain Stop: 01/10/21 05:53 Umeclidinium/Vilanterol (Umeclidinium/Vilanterol 62.5/25mcg 7 Puffs/Inhaler) 1 puffs INH DAILY RABIA Stop: 01/10/21 08:59 Last Admin: 12/15/20 07:57 Dose: 1 puffs Documented by: (1) Abdominal pain Abdominal location: generalized Qualified Code(s): R10.84 - Generalized abdominal pain
[2020-12-15] MEDS: DOXAZosin MESYLATE 4 MG TAB PO SCH (20:55)
[2020-12-16] MEDS: SERTRALINE HCL 50 MG TABLET PO SCH (07:43)
[2020-12-16] MEDS: PANTOprazole 40 MG TAB PO SCH (07:44)
[2020-12-16] MEDS: FAMOTIDINE 20 MG TAB PO SCH ×2 (07:44→19:58)
[2020-12-16] MEDS: amLODIPine BESYLATE 5 MG TAB PO SCH (07:44)
[2020-12-16] MEDS: MULTIVITAMIN TAB PO SCH (07:45)
[2020-12-16] MEDS: UMECLIDINIUM/VILANTEROL 62.5/25MCG 7 PUFFS/INHALER INH SCH (07:45)
[2020-12-16] MEDS: FLUTICASONE FUROATE 100MCG 14 PUFFS/INHALER INH SCH (07:45)
[2020-12-16] MEDS: DOCUSATE SODIUM/SENNA 50/8.6MG TAB PO SCH ×2 (07:46→19:58)
--- NOTE | 2020-12-16 12:01 | Hospitalist Progress Note ---
Date of Service December 16, 2020 Assessment & Plan (1) Abdominal pain: CT of the abdomen and pelvis; status post placement of a bifurcated aortobiiliac stent graft. 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 Slaughter. He does not think patient's abdominal pain is from AAA endoleak. Patient also a poor candidate for vascular surgery as per Dr. Slaughter.) Dr Delvalle communicated [facility] vascular surgeon recommendations to daughter regarding AAA as well. Remains stable without any acute symptoms Rectal bleed L GIB as per family account Possibly from fecal retention, hx diverticulosis, hemorrhoids from last colonoscopy No more bleeding since admission Hemoglobin currently stable. Appropriate to hold home aspirin given L GIB No more rectal bleed-hemoglobin remained stable at 12.9 C. difficile has been negative and no more acute rectal bleed Hypertensive Episode Pleasantly confused Could be related to very high blood pressure yesterday No evidence of neurological deficit The blood pressure is reasonably controlled His blood pressure is well controlled with current medications Blood pressure remains well controlled Acute Kidney Injury on CKD Stage 3 Baseline Creatinine 1.5 Getting gentle IV fluid Monitor PRP-creatinine is slightly up at 1.55 He was advised to drink more fluid We will check PRP tomorrow AAA with possible endoleak hx AAA repair (01/2019) Some enlargement compared to last imaging from 2 months ago. Patient follows with [facility] vascular surgery hx renal artery stenosis as per records hx CAD status post stent No acute cardiac symptoms COPD, pulmonary status at baseline No exacerbation Hypertension, elevated secondary discomfort Blood pressure is controlled Hyperlipidemia, statin intolerance as per records Chronic anemia, hemoglobin better than baseline likely secondary to hemoconcentration Hemoglobin stable at 12.6 as of 12/12/2020 Hyperglycemia likely prediabetes, hemoglobin A1c of 6.13 February 2020 Dementia, patient has a pleasant baseline No acute delirium Past tobacco abuse DVT prophylaxis with SCDs Re: GI bleed DNR as per daughter/POA Ms. Negrita Sharp. She requests updates from providers thru [phone]. He will need to stay till Thursday before he gets approval to go to [facility] Admission and Anticipated Discharge Date Admission Date: December 12, 2020 Subjective 12/12/2020 The patient was seen and examined in medical telemetry Was admitted yesterday with abdominal pain and rectal bleed Denies any more pain as of today and bleeding seems to be stopped Denies any other symptoms 12/13/2020 The patient was seen and examined in medical telemetry unit He is confused to some extent today Denies any significant symptoms otherwise 12/14/2020 The patient was seen and examined in medical telemetry unit He remains stable with occasional confusion Denies any symptoms during my examination He has been waiting to go to [facility] but requires approval Did not have any more rectal bleed or abdominal pain 12/15/2020 The patient was seen and examined in medical telemetry unit He remains pleasantly confused but denies any acute symptoms No more blood in the stool and he remains hemodynamically stable 12/16/2020 The patient was seen and examined in medical telemetry unit He remains stable and is less confused as of today Denies any significant symptoms, no more blood in the stool and C. difficile is negative Review of Systems Review of Systems: All systems reviewed and are unremarkable except as noted below Physical Exam Physical Exam: Sitting on a chair without any acute distress Constitutional: well developed and well nourished; not ill appearing Eyes: PERRL, conjunctivae normal, anicteric sclerae ENMT: external ear and nose normal, oropharynx normal Neck: trachea midline, no thyromegaly Respiratory: no respiratory distress Auscultation: lungs clear to auscultation bilaterally Cardiovascular: Rate/Rhythm: regular rate and regular rhythm Heart Sounds: no murmur Extremities: no edema Gastrointestinal (Abdomen): Inspection/Auscultation: normal bowel sounds; abdomen not distended Percussion/Palpation: abdomen soft; abdomen nontender Musculoskeletal: No acute arthritis in any joint Neurologic: Alert, awake and oriented. No acute confusion but has been pleasantly confused Psychiatric: A+Ox3, euthymic affect Lymphatic: no cervical or axillary lymphadenopathy Results & Data Results & Data ([facility]) Vital Signs (Past 12 Hours) Vital Signs Temp Pulse Pulse Resp BP BP Pulse Ox 12/16/20 11:46 36.9 C 76 20 129/73 93 12/16/20 07:29 36.3 C L 67 20 156/85 H 95 12/16/20 02:02 36.7 C 72 18 139/84 92 Medications Administered Current Inpatient Medications Acetaminophen (Acetaminophen 325 Mg Tab) 650 mg PO Q4H PRN PRN Reason: Pain or Fever Stop: 01/10/21 05:53 Last Admin: 12/13/20 15:53 Dose: 650 mg Documented by: Amlodipine Besylate (Amlodipine Besylate 5 Mg Tab) 5 mg PO QAM [facility] Stop: 01/11/21 16:59 Last Admin: 12/16/20 07:44 Dose: 5 mg Documented by: Doxazosin Mesylate (Doxazosin Mesylate 4 Mg Tab) 4 mg PO HS [facility] Stop: 01/10/21 20:59 Last Admin: 12/15/20 20:55 Dose: 4 mg Documented by: Famotidine (Famotidine 20 Mg Tab) 20 mg PO BID [facility] Stop: 01/10/21 08:59 Last Admin: 12/16/20 07:44 Dose: 20 mg Documented by: Fluticasone Furoate (Fluticasone Furoate 100mcg 14 Puffs/Inhaler) 1 puffs INH DAILY [facility] Stop: 01/10/21 08:59 Last Admin: 12/16/20 07:45 Dose: 1 puffs Documented by: Hydromorphone HCl (Hydromorphone Inj 0.5 Mg/0.5 Ml Syr) 0.25 mg IV Q4H PRN PRN Reason: Pain Stop: 12/25/20 05:53 Promethazine HCl 12.5 mg/ (Sodium Chloride) 50.5 mls @ 202 mls/hr IV Q6H PRN PRN Reason: Nausea And Vomiting Stop: 01/10/21 05:53 Multivitamins (Multivitamin Tab) 1 tab PO DAILY [facility] Stop: 01/10/21 08:59 Last Admin: 12/16/20 07:45 Dose: 1 tab Documented by: Pantoprazole Sodium (Pantoprazole 40 Mg Tab) 40 mg PO DAILY [facility] Stop: 01/10/21 08:59 Last Admin: 12/16/20 07:44 Dose: 40 mg Documented by: Polyethylene Glycol (Polyethylene (Miralax) 17 Gm Pack) 17 gm PO DAILY PRN PRN Reason: Constipation Stop: 01/10/21 05:53 Senna/Docusate Sodium (Docusate Sodium/Senna 50/8.6mg Tab) 1 tab PO BID [facility] Stop: 01/10/21 04:59 Last Admin: 12/16/20 07:46 Dose: Not Given Documented by: Sertraline HCl (Sertraline Hcl 50 Mg Tablet) 50 mg PO DAILY [facility] Stop: 01/10/21 08:59 Last Admin: 12/16/20 07:43 Dose: 50 mg Documented by: Tramadol HCl (Tramadol Hcl 50 Mg Tablet) 25 - 50 mg PO Q4H PRN PRN Reason: Pain Stop: 01/10/21 05:53 Umeclidinium/Vilanterol (Umeclidinium/Vilanterol 62.5/25mcg 7 Puffs/Inhaler) 1 puffs INH DAILY [facility] Stop: 01/10/21 08:59 Last Admin: 12/16/20 07:45 Dose: 1 puffs Documented by: (1) Abdominal pain Abdominal location: generalized Qualified Code(s): R10.84 - Generalized abdominal pain
[2020-12-16] MEDS: DOXAZosin MESYLATE 4 MG TAB PO SCH (19:58)
[2020-12-17 06:02] LABS: Basophils # (auto) 0.02 K/uL (0-0.2); Basophils % (auto) 0.3 %; Eosinophils # (auto) 0.19 K/uL (0-0.5); Hematocrit (blood only) 36.8 % (42-52); Hemoglobin 12.9 g/dL (14.0-18.0); Immature Granulocytes # (auto) 0.01 K/uL (0.00-0.02); Immature Granulocytes % (auto) 0.2 %; Lymphocytes # (auto) 1.89 K/uL (1.2-3.4); Lymphocytes % (auto) 29.3 %; Mean Corpuscular Hemoglobin 30.7 pg (25-34); Mean Corpuscular Hgb Conc 35.1 g/dL (32-36); Mean Corpuscular Volume 87.6 fL (80-100); Mean Platelet Volume 10.2 fL (7.4-10.4); Monocytes # (auto) 0.78 K/uL (0.11-0.59); Monocytes % (auto) 12.1 %; Neutrophils # (auto) 3.55 K/uL (1.4-6.5); Neutrophils % (auto) 55.1 %; Platelet Count 186 K/uL (130-400); RDW Coefficient of Variation 13.8 % (11.5-14.5); RDW Standard Deviation 43.7 fL (36.4-46.3); White Blood Count 6.44 K/uL (4.8-10.8)
[2020-12-17 06:31] LABS: BUN Creatinine Ratio 16.7 (10-20); Calcium 8.1 mg/dl (8.5-10.1); Est GFR (African American) 54.7; Est GFR (Non-African American) 47.2; Magnesium 1.9 mg/dl (1.8-2.4); Potassium 3.8 mmol/L (3.5-5.1)
[2020-12-17 06:32] LABS: Phosphorus 2.4 mg/dl (2.5-4.9)
[2020-12-17] MEDS: FAMOTIDINE 20 MG TAB PO SCH (07:49)
[2020-12-17] MEDS: DOCUSATE SODIUM/SENNA 50/8.6MG TAB PO SCH (07:49)
[2020-12-17] MEDS: SERTRALINE HCL 50 MG TABLET PO SCH (07:50)
[2020-12-17] MEDS: FLUTICASONE FUROATE 100MCG 14 PUFFS/INHALER INH SCH (07:50)
[2020-12-17] MEDS: PANTOprazole 40 MG TAB PO SCH (07:50)
[2020-12-17] MEDS: UMECLIDINIUM/VILANTEROL 62.5/25MCG 7 PUFFS/INHALER INH SCH (08:36)
[2020-12-17] MEDS: MULTIVITAMIN TAB PO SCH (08:36)
[2020-12-17] MEDS: amLODIPine BESYLATE 5 MG TAB PO SCH (08:36)
--- NOTE | 2020-12-17 13:32 | Hospitalist Progress Note ---
Date of Service December 17, 2020 Assessment & Plan (1) Abdominal pain: CT of the abdomen and pelvis; status post placement of a bifurcated aortobiiliac stent graft. 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 Slaughter. He does not think patient's abdominal pain is from AAA endoleak. Patient also a poor candidate for vascular surgery as per Dr. Slaughter.) Dr Delvalle communicated [facility] vascular surgeon recommendations to daughter regarding AAA as well. Remains stable without any acute symptoms No more abdominal pain and/or discomfort Rectal bleed L GIB as per family account Possibly from fecal retention, hx diverticulosis, hemorrhoids from last colonoscopy No more bleeding since admission Hemoglobin currently stable. Appropriate to hold home aspirin given L GIB No more rectal bleed-hemoglobin remained stable at 12.9 C. difficile has been negative and no more acute rectal bleed Bowels moved without any rectal bleeding Hypertensive Episode Pleasantly confused Could be related to very high blood pressure yesterday No evidence of neurological deficit The blood pressure is reasonably controlled His blood pressure is well controlled with current medications Blood pressure remains well controlled Acute Kidney Injury on CKD Stage 3 Baseline Creatinine 1.5 Getting gentle IV fluid Monitor PRP-creatinine is slightly up at 1.55 He was advised to drink more fluid We will check PRP tomorrow-Creatinine is normalized AAA with possible endoleak hx AAA repair (01/2019) Some enlargement compared to last imaging from 2 months ago. Patient follows with [facility] vascular surgery hx renal artery stenosis as per records hx CAD status post stent No acute cardiac symptoms COPD, pulmonary status at baseline No exacerbation Hypertension, elevated secondary discomfort Blood pressure is controlled Hyperlipidemia, statin intolerance as per records Chronic anemia, hemoglobin better than baseline likely secondary to h emoconcentration Hemoglobin stable at 12.6 as of 12/12/2020 Hyperglycemia likely prediabetes, hemoglobin A1c of 6.13 February 2020 Dementia, patient has a pleasant baseline No acute delirium Past tobacco abuse DVT prophylaxis with SCDs Re: GI bleed DNR as per daughter/POA Ms. Negrita Sharp. She requests updates from providers thru [phone]. He will need to stay till Thursday before he gets approval to go to [facility] His repeat Covid test is negative He will be going to [facility] this afternoon Admission and Anticipated Discharge Date Admission Date: December 12, 2020 Subjective 12/12/2020 The patient was seen and examined in medical telemetry Was admitted yesterday with abdominal pain and rectal bleed Denies any more pain as of today and bleeding seems to be stopped Denies any other symptoms 12/13/2020 The patient was seen and examined in medical telemetry unit He is confused to some extent today Denies any significant symptoms otherwise 12/14/2020 The patient was seen and examined in medical telemetry unit He remains stable with occasional confusion Denies any symptoms during my examination He has been waiting to go to [facility] but requires approval Did not have any more rectal bleed or abdominal pain 12/15/2020 The patient was seen and examined in medical telemetry unit He remains pleasantly confused but denies any acute symptoms No more blood in the stool and he remains hemodynamically stable 12/16/2020 The patient was seen and examined in medical telemetry unit He remains stable and is less confused as of today Denies any significant symptoms, no more blood in the stool and C. difficile is negative 12/17/2020 The patient was seen and examined in medical telemetry unit He remains stable and denies any significant symptoms No more blood in the stool and no more pain in the abdomen Remains pleasantly confused Review of Systems Review of Systems: All systems reviewed and are unremarkable except as noted below Physical Exam Physical Exam: Lying in bed without any acute distress Constitutional: well developed and well nourished; not ill appearing Eyes: PERRL, conjunctivae normal, anicteric sclerae ENMT: external ear and nose normal, oropharynx normal Neck: trachea midline, no thyromegaly Respiratory: no respiratory distress Auscultation: lungs clear to auscultation bilaterally Cardiovascular: Rate/Rhythm: regular rate and regular rhythm Heart Sounds: no murmur Extremities: no edema Gastrointestinal (Abdomen): Inspection/Auscultation: normal bowel sounds; abdomen not distended Percussion/Palpation: abdomen soft; abdomen nontender Musculoskeletal: No acute arthritis in any joint Neurologic: Alert and awake. Pleasantly confused. Generally weak Psychiatric: Affect: + flat affect Lymphatic: no cervical or axillary lymphadenopathy Results & Data Results & Data ([facility]) Vital Signs (Past 12 Hours) Vital Signs Temp Pulse Resp BP Pulse Ox 12/17/20 11:15 36.7 C 90 20 132/67 94 12/17/20 08:00 36.3 C L 94 H 16 118/65 92 Laboratory Results Short CBC 12/17/20 Range/Units 05:41 WBC 6.44 (4.8-10.8) K/uL Hgb 12.9 L (14.0-18.0) g/dL Hct 36.8 L (42-52) % Plt Count 186 (130-400) K/uL BMP 12/17/20 05:41 Sodium 140 Potassium 3.8 Chloride 109 H Carbon Dioxide 26 BUN 23 H Creatinine 1.35 Glucose 104 H Calcium 8.1 L Medications Administered Current Inpatient Medications Acetaminophen (Acetaminophen 325 Mg Tab) 650 mg PO Q4H PRN PRN Reason: Pain or Fever Stop: 01/10/21 05:53 Last Admin: 12/13/20 15:53 Dose: 650 mg Documented by: Amlodipine Besylate (Amlodipine Besylate 5 Mg Tab) 5 mg PO QAM [facility] Stop: 01/11/21 16:59 Last Admin: 12/17/20 08:36 Dose: 5 mg Documented by: Doxazosin Mesylate (Doxazosin Mesylate 4 Mg Tab) 4 mg PO HS [facility] Stop: 01/10/21 20:59 Last Admin: 12/16/20 19:58 Dose: 4 mg Documented by: Famotidine (Famotidine 20 Mg Tab) 20 mg PO BID [facility] Stop: 01/10/21 08:59 Last Admin: 12/17/20 07:49 Dose: 20 mg Documented by: Fluticasone Furoate (Fluticasone Furoate 100mcg 14 Puffs/Inhaler) 1 puffs INH DAILY [facility] Stop: 01/10/21 08:59 Last Admin: 12/17/20 07:50 Dose: 1 puffs Documented by: Hydromorphone HCl (Hydromorphone Inj 0.5 Mg/0.5 Ml Syr) 0.25 mg IV Q4H PRN PRN Reason: Pain Stop: 12/25/20 05:53 Promethazine HCl 12.5 mg/ (Sodium Chloride) 50.5 mls @ 202 mls/hr IV Q6H PRN PRN Reason: Nausea And Vomiting Stop: 01/10/21 05:53 Multivitamins (Multivitamin Tab) 1 tab PO DAILY [facility] Stop: 01/10/21 08:59 Last Admin: 12/17/20 08:36 Dose: 1 tab Documented by: Pantoprazole Sodium (Pantoprazole 40 Mg Tab) 40 mg PO DAILY [facility] Stop: 01/10/21 08:59 Last Admin: 12/17/20 07:50 Dose: 40 mg Documented by: Polyethylene Glycol (Polyethylene (Miralax) 17 Gm Pack) 17 gm PO DAILY PRN PRN Reason: Constipation Stop: 01/10/21 05:53 Senna/Docusate Sodium (Docusate Sodium/Senna 50/8.6mg Tab) 1 tab PO BID [facility] Stop: 01/10/21 04:59 Last Admin: 12/17/20 07:49 Dose: 1 tab Documented by: Sertraline HCl (Sertraline Hcl 50 Mg Tablet) 50 mg PO DAILY [facility] Stop: 01/10/21 08:59 Last Admin: 12/17/20 07:50 Dose: 50 mg Documented by: Tramadol HCl (Tramadol Hcl 50 Mg Tablet) 25 - 50 mg PO Q4H PRN PRN Reason: Pain Stop: 01/10/21 05:53 Umeclidinium/Vilanterol (Umeclidinium/Vilanterol 62.5/25mcg 7 Puffs/Inhaler) 1 puffs INH DAILY [facility] Stop: 01/10/21 08:59 Last Admin: 12/17/20 08:36 Dose: 1 puffs Documented by: (1) Abdominal pain Abdominal location: generalized Qualified Code(s): R10.84 - Generalized abdom inal pain
--- NOTE | 2020-12-17 18:26 | Discharge Summary ---
Date of Service December 17, 2020 Admission HPI Per Admitting Provider History obtained from patient, family, and records. Limited history from patient secondary to dementia. Medical history significant for AAA repair (01/2019, [facility]), CAD, COPD, hypertension, hyperlipidemia, statin intolerance, renal artery stenosis as per records, CRI (baseline creatinine 1.5 ), chronic anemia (baseline hemoglobin 12), dementia, past tobacco abuse. Patient underwent AAA repair at [facility] last January 2019. August 2020 aortic duplex showed endoleak with increase in aneurysmal sac size from 5 to 5.[address] abdomen pelvis showed interval increase size of aneurysm sac to 5.2 x 6.2 cm consistent with endoleak. Patient without complaints of abdominal/flank or back pain at time of CT report. 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 1 day history of achy abdominal pain going across patient's belly with bright red blood per rectum. Unknown if patient constipated. No fever, no chills. Patient denies chest pain, S OB, nausea, emesis symptoms. Patient brought to the ER for evaluation. Given Zosyn for possible sepsis. Soapsuds enema given at the ER as well for possible constipation. Patient currently without complaints and has no recollection as to why he is in the hospital. Medical History as above 2011 EGD showed normal stomach and duodenum. 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 Admission Exam Per Admitting Provider Physical Exam: GENERAL: Comfortable, pleasant, demented, no respiratory distress SKIN: Pallor, warm HEENT: Alopecia, bespectacled, pale palpebral conjunctivae, no ptosis, dry buccal mucosa NECK : Supple, no tenderness CHEST : CTA, no tenderness HEART : RRR, no obvious murmurs ABDOMEN: Some distention, minimal hypogastric tenderness EXTREMITIES : No LE swelling/tenderness, no other conspicuous deformities noted NEUROLOGIC : Coherent, pleasantly demented, no facial asymmetry, no other gross focality Principal Diagnosis Abdominal pain-resolved, rectal bleed-resolved, hypertensive episode, acute on chronic kidney disease, status post AAA repair in 01/2009, COPD Discharge Exam Constitutional well developed and well nourished; not ill appearing Eyes PERRL, conjunctivae normal, anicteric sclerae ENMT external ear and nose normal, oropharynx normal Neck trachea midline, no thyromegaly Respiratory no respiratory distress Auscultation: lungs clear to auscultation bilaterally Cardiovascular Rate/Rhythm: regular rate and regular rhythm Heart Sounds: no murmur Extremities: no edema Gastrointestinal (Abdomen) Inspection/Auscultation: normal bowel sounds; abdomen not distended Percussion/Palpation: abdomen soft; abdomen nontender Psychiatric A+Ox3, euthymic affect Affect: + flat affect Lymphatic no cervical or axillary lymphadenopathy Discharge Data Allergies Allergy/AdvReac Type Severity Reaction Status Date / Time No Known Allergies Allergy Mild Verified 12/10/20 23:23 Consultations 12/11/20 00:48 ED Decision to Admit Stat Ordered Studies 12/10/20 22:34 CT abd pelvis IV con only Urgent Hospital Course (1) Abdominal pain: CT of the abdomen and pelvis; status post placement of a bifurcated aortobiiliac stent graft. 6.2 x 5.2 cm infrarenal abdominal aortic aneurysm sac which contains hyperdense material consistent with endoleak Outpatient [facility] vascular surgery follow-up (Case discussed with [facility] vascular surgeon engine monitor, Dr. Slaughter. He does not think patient's abdominal pain is from AAA endoleak. Patient also a poor candidate for vascular surgery as per Dr. Slaughter.) Dr Delvalle communicated [facility] vascular surgeon recommendations to daughter regarding AAA as well. Remains stable without any acute symptoms No more abdominal pain and/or discomfort Rectal bleed L GIB as per family account Possibly from fecal retention, hx diverticulosis, hemorrhoids from last colonoscopy No more bleeding since admission Hemoglobin currently stable. Appropriate to hold home aspirin given L GIB No more rectal bleed-hemoglobin remained stable at 12.9 C. difficile has been negative and no more acute rectal bleed Bowels moved without any rectal bleeding Hypertensive Episode Pleasantly confused Could be related to very high blood pressure yesterday No evidence of neurological deficit The blood pressure is reasonably controlled His blood pressure is well controlled with current medications Blood pressure remains well controlled Acute Kidney Injury on CKD Stage 3 Baseline Creatinine 1.5 Getting gentle IV fluid Monitor PRP-creatinine is slightly up at 1.55 He was advised to drink more fluid We will check PRP tomorrow-Creatinine is normalized AAA with possible endoleak hx AAA repair (01/2019) Some enlargement compared to last imaging from 2 months ago. Patient follows with [facility] vascular surgery hx renal artery stenosis as per records hx CAD status post stent No acute cardiac symptoms COPD, pulmonary status at baseline No exacerbation Hypertension, elevated secondary discomfort Blood pressure is controlled Hyperlipidemia, statin intolerance as per records Chronic anemia, hemoglobin better than baseline likely secondary to hemoconcentration Hemoglobin stable at 12.6 as of 12/12/2020 Hyperglycemia likely prediabetes, hemoglobin A1c of 6.13 February 2020 Dementia, patient has a pleasant baseline No acute delirium Past tobacco abuse DVT prophylaxis with SCDs Re: GI bleed DNR as per daughter/POA Ms. Negrita Sharp. She requests updates from providers thru [phone]. He will need to stay till Thursday before he gets approval to go to [facility] His repeat Covid test is negative He will be going to [facility] this afternoon Total Time Total Time Spent Total Time Spent (In Minutes): 45 minutes Total Time Includes: Examination of the Patient, Discharge Planning, Medication Reconciliation and Communication With Other Providers Discharge Plan Discharge Items Patient Disposition: Transfer [facility] Reason For Visit: LGIB Discharge Diagnosis: Abdominal pain-resolved, rectal bleed-resolved, hypertensive episode, acute on chronic kidney disease, status post AAA repair in 01/2009, COPD Condition on Discharge: Fair Activity: As commented below Activity Comment: Needs assistance in ADL S Non-emergency contact: Primary Care Provider Call non-emergency contact if: you have any medication questions and your symptoms worsen Follow-up/Referrals: Víctor Domínguez MD [Primary Care Provider] - (Please make a follow-up appointment with your primary care physician within 7 days following discharge from the facility) Diet: Heart Healthy Addtl Attending Provider Instructions: Please take precaution to avoid falls Pending Studies at Discharge: No Stand-Alone Forms: [facility] Safe Case Skilled Items Patient informed of condition?: Yes DNR: Yes Discharge Level of Care: Skilled Communicable Disease: No Discharge Prognosis: Stable Lines: None Urinary Catheter: No Medications and DC Order Prescriptions: New amlodipine [Norvasc] 5 mg Tablet 5 mg PO QAM 30 Days Qty: 30 RF: 0 Continued cyclobenzaprine 10 mg tablet 5 mg PO HS RF: 0 omeprazole 40 mg capsule,delayed release(DR/EC) 40 mg PO DAILY RF: 0 aspirin 81 mg Tablet,Delayed Release (Dr/Ec) 81 mg PO DAILY RF: 0 famotidine 20 mg tablet 20 mg PO BID RF: 0 nitroglycerin 0.4 mg tablet, sublingual 0.4 mg sublingual DAILY PRN (Reason: Chest Pain) RF: 0 doxazosin 4 mg tablet 4 mg PO HS RF: 0 sertraline 50 mg tablet 50 mg PO DAILY RF: 0 Trelegy Ellipta 100-62.5-25 mcg blister with device 1 inh INHALATION DAILY RF: 0 multivitamin Tablet 1 tab PO DAILY RF: 0 albuterol sulfate 90 mcg/actuation HFA aerosol inhaler 2 puff INHALATION Q4 PRN (Reason: Shortness Of Breath Or Wheezing) RF: 0 Anoro Ellipta 62.5-25 mcg/actuation Blister With Device 1 inh INHALATION DAILY PRN (Reason: Shortness Of Breath Or Wheezing) RF: 0 Discharge Orders: Discharge Order (Routine); Ordered 12/17/20 Ordered By: Sydney Servin/Other Patient Handouts: A1C Admission Data Admit Date/Time: 12/12/20 15:40 Attending Provider: Sydney Camejo Admit Provider: David Montenegro Primary Care Provider: Víctor Domínguez Other Providers: Marleny Suero ; [place] ; David Montenegro Other Interventions: Discharge Summary Assessment (RN) Last Done: 12/17/20 14:48
--- NOTE | 2020-12-24 15:00 | Coding Query ---
CODING QUERY To promote full compliance with coding requirements relating to patient care, provider participation is requested in all cases of surgical coder uncertainty. Please assist us with the question(s) below: Coding Question(s): Patient adm with generalized abdominal pain,rectal pain and rectal hemorrhage. Prior endovascular graft for AAA. Documentation states endoleak. Please document, if known or suspected , the etiology of the abdominal pain. Thanks for your help. Amado [facility] Physician's Response(s): No acute Endoleak and Rectal bleed stopped spontaneously. Principal Diagnosis: "that condition established after study, to be chiefly responsible for occasioning the admission of the patient to the hospital for care." Co-Existing Principal Diagnosis: "when two or more diagnoses equally meet the criteria for principal diagnosis as determined by the circumstances of admission, diagnostic work up, and/or therapy provided, and the Alphabetic Index, Tabular List, or another coding guideline does not provide sequencing direction, any one of the diagnoses may be sequenced first." "When the physician has documented what appears to be a current diagnosis in the body of the record, but has not included the diagnosis in the final diagnostic statement, the physician should be asked whether the diagnosis should be added." (Source Coding [facility] 2 QTR90. p3-4) RUCHI
== END 2020-12-17 17:34 | DRG 392 ==
LOC: ED 22:15 → 2N 22:15 → SUATTDRO 12-11 04:43 → 2N 12-11 05:20

== ENCOUNTER 2024-09-11 14:31 | Inpatient (IN) ==
[2024-09-11 15:51] LABS: Basophils # (auto) 0.02 K/uL (0.00-0.20); Basophils % (auto) 0.5 %; Hematocrit (blood only) 40.5 % (42.0-52.0); Hemoglobin 13.6 g/dl (14.0-18.0); Immature Granulocytes # (auto) 0.01 K/uL (0.01-0.20); Immature Granulocytes % (auto) 0.3 %; Lymphocytes # (auto) 0.95 K/uL (1.20-3.40); Lymphocytes % (auto) 26.1 %; Mean Corpuscular Hemoglobin 30.5 pg (25.0-34.0); Mean Corpuscular Hgb Conc 33.6 g/dL (32.0-36.0); Mean Corpuscular Volume 90.8 fL (80.0-100.0); Mean Platelet Volume 10.5 fL (9.4-12.4); Monocytes # (auto) 0.34 K/uL (0.11-0.59); Monocytes % (auto) 9.3 %; Neutrophils # (auto) 2.32 K/uL (1.40-6.50); Neutrophils % (auto) 63.8 %; Platelet Count 183 K/uL (130-400); RDW Coefficient of Variation 13.5 % (11.5-14.5); RDW Standard Deviation 44.7 fL (36.4-46.3); Red Blood Count 4.46 M/uL (4.70-6.10); White Blood Count 3.64 K/ul (4.8-10.8)
[2024-09-11 15:59] LABS: Alanine Aminotransferase 15 U/L (7-52); Albumin Globulin Ratio 1.3 (0.9-2); Alkaline Phosphatase 85 U/L (34-104); Anion Gap 6 (3-11); Aspartate Aminotransferase 27 U/L (13-39); Bilirubin,Total 0.6 mg/dl (0.2-1.0); Blood Urea Nitrogen 27 mg/dl (6-23); Calcium 8.8 mg/dl (8.6-10.3); Carbon Dioxide 27 mmol/L (21-32); Chloride 104 mmol/L (98-107); Globulin 3.1 gm/dl (2.5-4.0); Glucose 134 mg/dl (70-99(Fasting)); Potassium 4.6 mmol/L (3.5-5.1); Sodium 137 mmol/L (136-145); Total Protein 7.1 gm/dl (6.0-8.3)
[2024-09-11 16:17] LABS: Partial Thromboplastin Ratio 1.1; Partial Thromboplastin Time 29 Seconds (21-31); Prothrombin Time 11.2 Seconds (9.0-12.0)
[2024-09-11 16:18] LABS: Magnesium 1.8 mg/dl (1.7-2.4)
--- NOTE | 2024-09-11 16:24 | Emergency Department Note ---
Impression & Plan Acute dyspnea, Acute hypoxemic respiratory failure, COVID-19, Influenza A, Non- ST elevation IA (NSTEMI), Elevated brain natriuretic peptide (BNP) level ED Provider Note HISTORY OF PRESENT ILLNESS: Patient is an 88-year-old male presenting with shortness of breath and lethargy. Daughter provides most of history. Patient presents from [facility]. He is normally on 2 L nasal cannula at nighttime only. Daughter reports that she lost saw him a few days ago and he seemed to be his normal self other than that he has had lower extremity edema for the last week. She reports that they started him on some Lasix at the facility. Reports that 3 days ago the patient was his normal mental status, but when she went to check on him today he seemed to be very lethargic and wheezy. He has slept most of today. No reported fevers. Patient was hypoxic down into the mid 80s at the facility and his oxygen had to be increased to 4 L throughout the day today. No reported cough. Patient denies any chest pain. He does report feeling short of breath. Denies any abdominal pain, nausea or vomiting. ROS: as above PHYSICAL EXAM: Constitutional: Patient appears in no acute distress. HENT: Head: Normocephalic and atraumatic. Eyes: EOMI, PERRL Mouth/Throat: Mucous membranes moist. Neck: Trachea midline. Neck supple. Cardiovascular: RRR, No murmurs, rubs or gallops. Intact distal pulses. Pulmonary/Chest: No respiratory distress. Breath sounds clear and equal bilaterally. On 4 L nasal cannula. Expiratory wheezes bilaterally. Abdominal: Abdomen soft, no tenderness, rebound or guarding. Musculoskeletal: No tenderness or deformity noted. +1 pitting edema of bilateral lower extremities extending from feet to ankles Skin: Warm and dry. No rash, erythema, pallor or cyanosis Psychiatric: Appropriate mood and affect for situation. Neurological: Alert and keenly responsive. CN II-XII grossly intact, moving all extremities equally and fully. MDM: - Vitals signs showed hypoxia - History obtained via patient and patient's daughter. History as above. - Chronic conditions affecting care: CAD; COPD; AAA; dementia - Differential diagnoses include, but are not limited to: Congestive heart failure; acute coronary syndrome; COPD/asthma exacerbation; pulmonary edema; pulmonary embolism; pneumonia; pneumothorax; viral syndrome - Order placed for continuous cardiac monitoring. At this time, monitor showed rate of 60 bpm with normal sinus rhythm, per my interpretation. - External medical records reviewed. - EKG interpreted by myself showed normal sinus rhythm. Rate 62 bpm. QT 438. No acute ischemic changes. - Laboratory workup interpreted by myself showed leukopenia (WBC 3.64); normal PT/INR; stable electrolytes; baseline CKD; elevated troponin (25.2); elevated BNP (454) - CXR negative for pneumonia, per my interpretation - Viral respiratory panel positive for COVID and influenza A. - VBG shows slight hypercarbia with pCO2 52 mmHg - Patient given duoneb in ER with improvement in wheezes. However, he is still requiring a significant increase in his oxygen requirement to keep his saturations above 93%. Will admit to hospitalist service. Given a dose of Tamiflu in the ER. - Discussion was had with mental health case manager about patient's case and need for admission - Hospitalist consulted for admission - Patient admitted to [facility] hospitalist service for further evaluation and management. ASSESSMENT AND PLAN: Diagnosis: Acute dyspnea; acute hypoxic respiratory failure; COVID-19; influenza A; NSTEMI; elevated BNP Plan: admit Past Med/Surg History Problem List (Updated 09/11/24 @ 18:18 by Cici Villa MD) Elevated brain natriuretic peptide (BNP) level (Acute) Non-ST elevation IA (NSTEMI) (Acute) Influenza A (Acute) COVID-19 (Acute) Acute hypoxemic respiratory failure (Acute) Acute dyspnea (Acute) Radial head fracture Wrist sprain Wrist pain Tendinitis of left rotator cuff Abdominal pain (Acute) Bright red rectal bleeding (Acute) Acidosis, lactic (Acute) Medical History CAD (coronary artery disease) Dementia Abdominal aneurysm COPD (chronic obstructive pulmonary disease) Surgical History S/P AAA repair History of heart artery stent Social History Smoking Status: Never smoker Tobacco Type: Cigarettes Second Hand Exposure: No; Do You Dip or Chew Tobacco: No; Hx Alcohol Use: Yes Alcohol type: beer Hx Substance Use: No Preferred Language: Belarusian Communication Ability: Effective Airplane Rental Clerk Required: No Beliefs That Will Affect Care: None Current Living Situation: Spouse Feels Safe at Home: Yes Assistive Devices: Glasses Allergies Allergies Allergy/AdvReac Type Severity Reaction Status Date / Time No Known Allergies Allergy Mild Verified 07/15/24 01:51 Home Meds Home Medications Medication Instructions Recorded Confirmed aspirin 81 mg tablet,delayed 81 mg PO DAILY 08/24/19 07/15/24 release cyclobenzaprine 10 mg tablet 5 mg PO HS 08/24/19 07/15/24 doxazosin 4 mg tablet 4 mg PO HS 08/24/19 07/15/24 famotidine 20 mg tablet 20 mg PO BID 08/24/19 07/15/24 fluticasone fur. 100 mcg-umeclid 1 inh inhalation QAM USES DAILY 08/24/19 07/15/24 62.5 mcg-vilant 25 mcg FOR SOB inhalat.powder (Trelegy Ellipta) nitroglycerin 0.4 mg sublingual 0.4 mg sublingual DAILY PRN Chest 08/24/19 07/15/24 tablet Pain omeprazole 40 mg capsule,delayed 40 mg PO QAM 08/24/19 07/15/24 release albuterol sulfate 90 mcg/actuation 2 puff inhalation Q4 PRN COPD 12/10/20 07/15/24 aerosol inhaler albuterol sulfate 90 mcg/actuation 2 puff inhalation UD 06/17/23 07/15/24 aerosol inhaler (Ventolin HFA) amlodipine 5 mg tablet 5 mg PO DAILY 06/17/23 07/15/24 finasteride 5 mg tablet 5 mg PO QAM 06/17/23 07/15/24 menthol 0.44 %-zinc oxide 20.6 % 1 applic topical BID 06/17/23 07/15/24 topical ointment (Calmoseptine) aydcdurmtprb-mwtycoll-mkmyij tablet 1 tab PO DAILY 06/17/23 07/15/24 acetaminophen 650 mg 650 mg PO Q8H PRN Pain 07/15/24 07/15/24 tablet,extended release fluoxetine 10 mg tablet 10 mg PO DAILY 07/15/24 07/15/24 Results & Data (ED) Vital Signs Vital Signs - 24 hr 09/11/24 14:50 09/11/24 14:53 09/11/24 15:50 Temperature 36.4 C L Temperature Source Temporal Artery Scan Pulse Rate 55 L 55 L Pulse Rate [Left Apical] Pulse Rhythm Regular Pulse Strength Normal Respiratory Rate 16 Respiratory Effort / Characteristics Non-Labored Spontaneous Respiratory Depth Normal Respiratory Pattern Regular Blood Pressure 126/72 Blood Pressure [Left Arm] Blood Pressure Mean 90 Blood Pressure Mean [Left Arm] Pulse Oximetry 85 L 94 Oxygen Delivery Method Room Air Nasal Cannula Oxygen Flow Rate 4 Sepsis Recent Fever Within 48 Hours No Sepsis New/Unexplained Change in Mental Status Yes Sepsis Action Taken by Nursing No Action Required 09/11/24 15:56 09/11/24 16:00 09/11/24 16:05 Temperature Temperature Source Pulse Rate 60 Pulse Rate [Left Apical] 55 L Pulse Rhythm Pulse Strength Respiratory Rate 16 13 Respiratory Effort / Characteristics Non-Labored Spontaneous Respiratory Depth Normal Respiratory Pattern Regular Blood Pressure 138/65 Blood Pressure [Left Arm] 138/87 Blood Pressure Mean 82 Blood Pressure Mean [Left Arm] 104 Pulse Oximetry 97 96 Oxygen Delivery Method Nasal Cannula Nasal Cannula Oxygen Flow Rate 4 4 Sepsis Recent Fever Within 48 Hours Sepsis New/Unexplained Change in Mental Status Sepsis Action Taken by Nursing 09/11/24 16:17 09/11/24 16:26 09/11/24 16:29 Temperature Temperature Source Pulse Rate 65 60 60 Pulse Rate [Left Apical] Pulse Rhythm Pulse Strength Respiratory Rate 16 17 13 Respiratory Effort / Characteristics Respiratory Depth Respiratory Pattern Blood Pressure Blood Pressure [Left Arm] Blood Pressure Mean Blood Pressure Mean [Left Arm] Pulse Oximetry 99 97 97 Oxygen Delivery Method Nasal Cannula Nasal Cannula Nasal Cannula Oxygen Flow Rate 4 4 4 Sepsis Recent Fever Within 48 Hours Sepsis New/Unexplained Change in Mental Status Sepsis Action Taken by Nursing 09/11/24 16:30 09/11/24 16:35 09/11/24 16:47 Temperature Temperature Source Pulse Rate 51 L 53 L Pulse Rate [Left Apical] Pulse Rhythm Pulse Strength Respiratory Rate 14 17 Respiratory Effort / Characteristics Respiratory Depth Respiratory Pattern Blood Pressure 138/79 Blood Pressure [Left Arm] Blood Pressure Mean 115 Blood Pressure Mean [Left Arm] Pulse Oximetry 98 94 Oxygen Delivery Method Nasal Cannula Nasal Cannula Oxygen Flow Rate 4 4 Sepsis Recent Fever Within 48 Hours Sepsis New/Unexplained Change in Mental Status Sepsis Action Taken by Nursing 09/11/24 16:50 09/11/24 18:01 Temperature Temperature Source Pulse Rate 54 L Pulse Rate [Left Apical] 58 L Pulse Rhythm Pulse Strength Respiratory Rate 20 16 Respiratory Effort / Characteristics Non-Labored Spontaneous Respiratory Depth Normal Respiratory Pattern Regular Blood Pressure Blood Pressure [Left Arm] 136/73 Blood Pressure Mean Blood Pressure Mean [Left Arm] 94 Pulse Oximetry 94 96 Oxygen Delivery Method Nasal Cannula Nasal Cannula Oxygen Flow Rate 4 4 Sepsis Recent Fever Within 48 Hours Sepsis New/Unexplained Change in Mental Status Sepsis Action Taken by Nursing Laboratory Data 09/11/24 15:28 09/11/24 15:28 Lab Results 09/11/24 09/11/24 09/11/24 Range/Units 15:25 15:27 15:28 WBC 3.64 L (4.8-10.8) K/ul RBC 4.46 L (4.70-6.10) M/uL Hgb 13.6 L (14.0-18.0) g/dl Hct 40.5 L (42.0-52.0) % MCV 90.8 (80.0-100.0) fL MCH 30.5 (25.0-34.0) pg MCHC 33.6 (32.0-36.0) g/dL RDW Std Deviation 44.7 (36.4-46.3) fL RDW Coeff of Ravi 13.5 (11.5-14.5) % Plt Count 183 (130-400) K/uL MPV 10.5 (9.4-12.4) fL Immature Gran % (Auto) 0.3 % Neut % (Auto) 63.8 % Lymph % (Auto) 26.1 % Banks % (Auto) 9.3 % Eos % (Auto) 0.0 % Baso % (Auto) 0.5 % Neut # (Auto) 2.32 (1.40-6.50) K/uL Lymph # (Auto) 0.95 L (1.20-3.40) K/uL Banks # (Auto) 0.34 (0.11-0.59) K/uL Eos # (Auto) 0.00 (0.00-0.50) K/uL Baso # (Auto) 0.02 (0.00-0.20) K/uL Immature Gran # (Auto) 0.01 (0.01-0.20) K/uL PT 11.2 (9.0-12.0) Seconds INR 1.0 (0.9-1.1) APTT 29 (21-31) Seconds PTT Ratio 1.1 VBG pH 7.36 (7.36-7.41) VBG pCO2 52 H (38-50) mmHg VBG pO2 26 mmHg VBG HCO3 29 mmol/L VBG O2 Saturation < 60.0 % VBG Base Excess 2.8 mEq/L Sodium 137 (136-145) mmol/L Potassium 4.6 (3.5-5.1) mmol/L Chloride 104 (98-107) mmol/L Carbon Dioxide 27 (21-32) mmol/L Anion Gap 6 (3-11) BUN 27 H (6-23) mg/dl Creatinine 1.69 H (0.6-1.4) mg/dl Est Cr Clr Drug Dosing Not Reportable eGFR 38.33 BUN/Creatinine Ratio 16.0 (10-20) Glucose 134 H (70-99(Fasting)) mg/dl Calcium 8.8 (8.6-10.3) mg/dl Magnesium 1.8 (1.7-2.4) mg/dl Total Bilirubin 0.6 (0.2-1.0) mg/dl AST 27 (13-39) U/L ALT 15 (7-52) U/L Alkaline Phosphatase 85 (34-104) U/L Troponin I High Sens 25.2 H (0-20) pg/ml B-Natriuretic Peptide 454 H (0-100) pg/ml Total Protein 7.1 (6.0-8.3) gm/dl Albumin 4.0 (3.4-5.0) gm/dl Globulin 3.1 (2.5-4.0) gm/dl Albumin/Globulin Ratio 1.3 (0.9-2) Adenovirus (PCR) Not Detected (NotDetected) B. pertussis DNA (PCR) Not Detected (NotDetected) B.parapertussis DNA PCR Not Detected (NotDetected) C. pneumoniae DNA (PCR) Not Detected (NotDetected) Coronavirus OC43 (PCR) Not Detected (NotDetected) Coronavirus HKU1 (PCR) Not Detected (NotDetected) Coronavirus 229E (PCR) Not Detected (NotDetected) SARS-CoV-2 (PCR) DETECTED A (NotDetected) Coronavirus NL63 (PCR) Not Detected (NotDetected) Human Metapneumovir PCR Not Detected (NotDetected) Influenza A (H3) PCR DETECTED A (NotDetected) Influenza Type B (PCR) Not Detected (NotDetected) M. pneumoniae (PCR) Not Detected (NotDetected) Parainfluenza 1 (PCR) Not Detected (NotDetected) Parainfluenza 2 (PCR) Not Detected (NotDetected) Parainfluenza 3 (PCR) Not Detected (NotDetected) Parainfluenza 4 (PCR) Not Detected (NotDetected) RSV (PCR) Not Detected (NotDetected) Entero/Rhino (PCR) Not Detected (NotDetected) Administered Medications Discontinued Medications Albuterol (Albut/Ipratrop 3mg/0.5mg Neb 3 Ml Vial) 3 ml NEB NOW STA; Protocol Stop: 09/11/24 16:25 Last Admin: 09/11/24 16:51 Dose: 3 ml Documented By: [facility] Oseltamivir Phosphate (Oseltamivir Phosphate 75 Mg Cap) 75 mg PO NOW STA; Protocol Stop: 09/11/24 17:51 Last Admin: 09/11/24 18:03 Dose: 75 mg Documented By: [facility] Imaging Data Radiologist's Impression: Chest X-Ray 09/11/24 15:59 EXAM: Radiograph of the Chest 1 View INDICATION: Shortness of breath. TECHNIQUE: Frontal view of the chest. COMPARISON: 06/17/2023 FINDINGS: Lungs and pleural spaces: Stable mild left basilar pleural thickening. No effusion or pneumothorax. Stable streaky scarring in the lower lung zones. Heart: Stable prominent cardiac shadow accentuated by technique. Mediastinum: Normal contour. Bones/joints: No fracture, erosion or dislocation. Soft tissues: No abnormality noted. No radiopaque foreign body noted. Upper abdomen: No abnormality noted. IMPRESSION: Stable chronic changes. No acute disease. ACT 112: Negative or not required by law. Electronically signed by Jalyn Steward 09-11-2024 5:05 PM Discharge Plan Visit Data Chief Complaint: Illness Stated Complaint: ABD BREATHING, LOW O2, SWELLING IN FEET AND LEGS ED Provider: Cici Villa Discharge Problem: Acute dyspnea, Acute hypoxemic respiratory failure, COVID-19, Influenza A, Non- ST elevation IA (NSTEMI), Elevated brain natriuretic peptide (BNP) level Forms Stand Alone Forms: My [facility] [employer] Prescriptions Prescriptions: No Action cyclobenzaprine 10 mg tablet 5 mg PO HS omeprazole 40 mg capsule,delayed release(DR/EC) 40 mg PO QAM aspirin 81 mg Tablet,Delayed Release (Dr/Ec) 81 mg PO DAILY famotidine 20 mg tablet 20 mg PO BID nitroglycerin 0.4 mg tablet, sublingual 0.4 mg sublingual DAILY PRN (Reason: Chest Pain) doxazosin 4 mg tablet 4 mg PO HS Trelegy Ellipta 100-62.5-25 mcg blister with device 1 inh INHALATION QAM amlodipine 5 mg tablet 5 mg PO DAILY finasteride 5 mg tablet 5 mg PO QAM Certa Plus SENIOR Tablet 1 tab PO DAILY albuterol sulfate [Ventolin HFA] 90 mcg/actuation HFA aerosol inhaler 2 puff INHALATION UD Rx Instructions: TAKE 2 PUFFS 15 MINUTES PRIOR TO TAKING TRELEGY menthol-zinc oxide [Calmoseptine] 0.44-20.6 % Ointment 1 applic TOPICAL BID Rx Instructions: APPLY TO GROIN AND BUTTOCKS FOR EXCORIATION; MAY ALSO USE NEEDED albuterol sulfate 90 mcg/actuation HFA aerosol inhaler 2 puff INHALATION Q4 PRN (Reason: COPD) fluoxetine 10 mg tablet 10 mg PO DAILY acetaminophen [Tylenol Arthritis] 650 mg Tablet Extended Release 650 mg PO Q8H PRN (Reason: Pain) Referrals Referrals: [place] [Primary Care Provider] -
[2024-09-11 16:27] LABS: Troponin I High Sensitivity 25.2 pg/ml (0-20)
[2024-09-11 16:36] LABS: Adenovirus PCR Not Detected (NotDetected); Bordetella parapertussis PCR Not Detected (NotDetected); Bordetella pertussis PCR Not Detected (NotDetected); Chlamydia pneumoniae PCR Not Detected (NotDetected); Coronavirus 229E PCR Not Detected (NotDetected); Coronavirus CoV-2 (COVID19)PCR DETECTED (NotDetected); Coronavirus HKU1 PCR Not Detected (NotDetected); Coronavirus NL63 PCR Not Detected (NotDetected); Coronavirus OC43PCR Not Detected (NotDetected); Human Metapneumovirus PCR Not Detected (NotDetected); Influenza A (H3) PCR DETECTED (NotDetected); Influenza B PCR Not Detected (NotDetected); Mycoplasma pneumoniae PCR Not Detected (NotDetected); Parainfluenza Virus 1 PCR Not Detected (NotDetected); Parainfluenza Virus 2 PCR Not Detected (NotDetected); Parainfluenza Virus 3 PCR Not Detected (NotDetected); Parainfluenza Virus 4 PCR Not Detected (NotDetected); Respiratory Syncytial VirusPCR Not Detected (NotDetected); Rhinovirus/Enterovirus PCR Not Detected (NotDetected)
[2024-09-11 16:44] LABS: Base Excess VBG 2.8 mEq/L; HCO3 VBG 29 mmol/L; Oxygen Saturation VBG < 60.0 %; PCO2 VBG 52 mmHg (38-50); PO2 VBG 26 mmHg; pH VBG 7.36 (7.36-7.41)
[2024-09-11] MEDS: ALBUT/IPRATROP 3MG/0.5MG NEB 3 ML VIAL NEB STA (16:51)
--- NOTE | 2024-09-11 17:06 | XRay Report ---
EXAM: Radiograph of the Chest 1 View INDICATION: Shortness of breath. TECHNIQUE: Frontal view of the chest. COMPARISON: 06/17/2023 FINDINGS: Lungs and pleural spaces: Stable mild left basilar pleural thickening. No effusion or pneumothorax. Stable streaky scarring in the lower lung zones. Heart: Stable prominent cardiac shadow accentuated by technique. Mediastinum: Normal contour. Bones/joints: No fracture, erosion or dislocation. Soft tissues: No abnormality noted. No radiopaque foreign body noted. Upper abdomen: No abnormality noted. IMPRESSION: Stable chronic changes. No acute disease. ACT 112: Negative or not required by law. Electronically signed by Jalyn Steward 09-11-2024 5:05 PM
[2024-09-11] MEDS: OSELTAMIVIR PHOSPHATE 75 MG CAP PO STA (18:03)
--- NOTE | 2024-09-11 18:31 | History & Physical Report ---
Date of Service September 11, 2024 Assessment & Plan (1) Acute metabolic encephalopathy: (2) Acute on chronic hypoxic respiratory failure: (3) Influenza A: (4) COVID-19: Plan: This is an 88-year-old male who is a resident at [facility] with PMH of COPD with nocturnal hypoxemia on 2 L nasal cannula O2 at bedtime, CAD s/p stent, history of AAA s/p repair 2019 following with [facility] vascular surgery, hypertension, hyperlipidemia, R renal artery stenosis, anemia, dementia and other medical problems listed below who was sent in for SOB and lethargy and was found to have acute on chronic hypoxic respiratory failure in setting of COVID- 19 and influenza A infections. Hypoxic in mid 80s at the facility but improved to 96% on 4 L nasal cannula upon arrival (baseline O2 requirement : 2L NC O2 HS) No leukocytosis, VBG pH within normal limits, procalcitonin pending SARSCov2, influenza A both positive on PCR Isolation precautions Received 75mg Tamiflu in ED Continue Tamiflu renally dosed at 30mg BID x 5 day course Decadron 6mg IV daily, antitussives Remdesivir contraindicated due to patient's intermittent bradycardia DuoNebs Q4 HR as needed shortness of breath or wheezing Continue home inhalers (5) Lower extremity edema: Plan: Noted 3 days ago, took 40mg lasix x 1 yesterday Appears dry on exam in setting of infxn as above - hold off on further lasix for now 2D echo, BLE venous dopplers for further workup (6) S/P AAA repair: Plan: Known endoleak s/p repair of abdominal aortic aneurysm with Cook Zenith stent graft by Dr. Townsend on 01/26/2019 for 5.6 cm AAA Family elected for no further surveillance of the AAA and no treatment of the endoleak No chemical VTE (7) COPD (chronic obstructive pulmonary disease): Plan: Dexamethasone, PRN Duonebs and home inhalers as above (8) Dementia: Plan: Talkative and alert to self, family at baseline Other chronic conditions: HTN : Continue amlodpine daily BPH : Continue doxazosin, finasteride Mood disorder : Continue SSRI GERD: Continue protonix CKD III: Cr 1.69 (bl ~ 1.6-1.7). Monitor with daily BMP DVT Ppx: SCDs Code status: DNR/DNI per discussion with family PCP: Sang Dispo: admitted to [facility] Patient seen in collaboration with Dr. Spicer. Please see addendum. I spent a total of 75 minutes coordinating, documenting, and providing care for this patient excluding time spent in the performance of separately billed services. History of Present Illness Chief Complaint: Shortness of breath, sent in from facility Primary Care Provider: [facility] This is an 88-year-old male who is a resident at [facility] with PMH of COPD with nocturnal hypoxemia on 2 L nasal cannula O2 at bedtime, CAD s/p stent, history of AAA s/p repair 2019 following with [facility] vascular surgery, hypertension, hyperlipidemia, R renal artery stenosis, anemia, dementia and other medical problems listed below who was sent in for SOB and lethargy. Daughter provided history 2/2 patient's dementia. Daughter noted lower extremity swelling last week and asked for facility provider to evaluate. Was started on a 5-day Lasix course and is completed 1 day (40mg day 1, then 20mg for 4 days) with some improvement. Had some wheezing at the end of last week but was attributed to COPD. Became much more lethargic and wheezy overnight and unable to maintain oxygen saturation at his baseline of 2 L at bedtime, so was sent in by staff for further evaluation. Patient remains much more lethargic than baseline. Is typically very talkative and oriented to self and others but is mainly been sleeping today. No fever, chills or notable cough, per daughter. Patient denies any pain right now. Remainder of ROS unobtainable due to patient's dementia. Noted to be hypoxic down to the mid 80s at the facility but improved to 96% on 4 L nasal cannula upon arrival. Allergies Allergy/AdvReac Type Severity Reaction Status Date / Time No Known Allergies Allergy Mild Verified 07/15/24 01:51 Home Medications Medication Instructions Recorded Confirmed Type aspirin 81 mg tablet,delayed 81 mg PO QAM 08/24/19 09/11/24 History release cyclobenzaprine 10 mg tablet 5 mg PO HS 08/24/19 09/11/24 History doxazosin 4 mg tablet 4 mg PO HS 08/24/19 09/11/24 History famotidine 20 mg tablet 20 mg PO BID 08/24/19 09/11/24 History fluticasone fur. 100 mcg-umeclid 1 inh inhalation QAM USES DAILY 08/24/19 09/11/24 History 62.5 mcg-vilant 25 mcg FOR SOB inhalat.powder (Trelegy Ellipta) nitroglycerin 0.4 mg sublingual 0.4 mg sublingual DAILY PRN Chest 08/24/19 09/11/24 History tablet Pain omeprazole 40 mg capsule,delayed 40 mg PO QAM 08/24/19 09/11/24 History release albuterol sulfate 90 mcg/actuation 2 puff inhalation Q4 PRN COPD 12/10/20 09/11/24 History aerosol inhaler albuterol sulfate 90 mcg/actuation 2 puff inhalation UD 06/17/23 09/11/24 History aerosol inhaler (Ventolin HFA) amlodipine 5 mg tablet 5 mg PO QAM 06/17/23 09/11/24 History finasteride 5 mg tablet 5 mg PO QAM 06/17/23 09/11/24 History dqwqnlnlypxh-ualomqck-qreswm tablet 1 tab PO QAM 06/17/23 09/11/24 History acetaminophen 650 mg 650 mg PO Q8H PRN Pain 07/15/24 09/11/24 History tablet,extended release fluoxetine 10 mg tablet 10 mg PO QAM 07/15/24 09/11/24 History furosemide 20 mg tablet 20 mg PO UD 09/11/24 09/11/24 History prednisone 10 mg tablet See Rx Instructions .Route .COMPLEX 09/11/24 09/11/24 History Past Med/Surg History Problem List (Updated 09/23/24 @ 12:12 by Erick Vidal DO) Mixed Alzheimer's and vascular dementia with behavior disturbances Discussion about advance care planning held with family member Need for comfort care Palliative care by specialist Weakness generalized Dyspnea and respiratory abnormalities Lower extremity edema Acute metabolic encephalopathy Acute on chronic hypoxic respiratory failure Elevated brain natriuretic peptide (BNP) level (Acute) Influenza A (Acute) COVID-19 (Acute) Radial head fracture Wrist sprain Wrist pain Tendinitis of left rotator cuff Abdominal pain (Acute) Bright red rectal bleeding (Acute) Acidosis, lactic (Acute) Medical History CAD (coronary artery disease) Dementia Abdominal aneurysm COPD (chronic obstructive pulmonary disease) Surgical History S/P AAA repair History of heart artery stent Family History (Updated 09/11/24 @ 20:56 by Jennifer Lake PA-C) Other AAA (abdominal aortic aneurysm) Cancer Social History Smoking Status: Former smoker Tobacco Type: Cigarettes Smoking End Date: 50 years ago; Second Hand Exposure: No; Do You Dip or Chew Tobacco: No; Hx Alcohol Use: No Hx Substance Use: No Preferred Language: [place] Communication Ability: Effective 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 Required: No Beliefs That Will Affect Care: Spiritual Current Living Situation: [facility] Current Living Situation Comment: [facility] Other Information That Helps Us Care for You: No Feels Safe at Home: Yes Safety Concerns: Feels Safe At This Time Assistive Devices: Wheelchair Review of Systems Review of Systems: Unobtainable due to cognitive status Physical Exam Physical Exam: General Appearance: WD/WN, vitals as above, NAD, sitting up in bed, lethargic but responsive to verbal stimuli Head: normocephalic, atraumatic Eyes: normal inspection, PERRL ENT: external ear and nose normal, oropharynx with dry mucous membranes Neck: normal visual inspection Respiratory: normal respiratory effort, lungs clear to auscultation, scattered expiratory wheezes. No accessory muscle use Cardiovascular: regular rate, rhythm, normal peripheral pulses, trace bilat. pedal edema. Vessels: no JVD Chest: normal inspection of chest Abdomen/GI: normal bowel sounds, soft, nontender, no hepatosplenomegaly Extremities/Musculoskeletal: no cyanosis or clubbing, extremities motor strength 5/5 Neurologic: PERRL, EOMI, accommodation nl, no face palsy, no dysarthria, CN's II-XI intact bilaterally and moves all extremities Psychiatric: A+Ox person only, euthymic affect Skin: no rashes, normal color, warm/dry Results & Data Results & Data Vital Signs (Past 12 Hours) Vital Signs Temp Pulse Pulse Resp BP BP Pulse Ox 09/11/24 18:01 58 L 16 136/73 96 09/11/24 16:50 54 L 20 94 09/11/24 16:47 53 L 17 94 09/11/24 16:35 51 L 14 98 09/11/24 16:30 138/79 09/11/24 16:29 60 13 97 09/11/24 16:26 60 17 97 09/11/24 16:17 65 16 99 09/11/24 16:05 60 13 96 09/11/24 16:00 138/65 09/11/24 15:56 55 L 16 138/87 97 09/11/24 15:50 55 L 09/11/24 14:53 94 09/11/24 14:50 36.4 C L 55 L 16 126/72 85 L O2 Del Method O2 Flow Rate 09/11/24 18:01 Nasal Cannula 4 09/11/24 16:50 Nasal Cannula 4 09/11/24 16:47 Nasal Cannula 4 09/11/24 16:35 Nasal Cannula 4 09/11/24 16:30 09/11/24 16:29 Nasal Cannula 4 09/11/24 16:26 Nasal Cannula 4 09/11/24 16:17 Nasal Cannula 4 09/11/24 16:05 Nasal Cannula 4 09/11/24 16:00 09/11/24 15:56 Nasal Cannula 4 09/11/24 15:50 09/11/24 14:53 Nasal Cannula 4 09/11/24 14:50 Room Air Laboratory Results Short CBC 09/11/24 Range/Units 15:28 WBC 3.64 L (4.8-10.8) K/ul Hgb 13.6 L (14.0-18.0) g/dl Hct 40.5 L (42.0-52.0) % Plt Count 183 (130-400) K/uL BMP 09/11/24 15:28 Sodium 137 Potassium 4.6 Chloride 104 Carbon Dioxide 27 BUN 27 H Creatinine 1.69 H Glucose 134 H Calcium 8.8 Liver Function 09/11/24 Range/Units 15:28 Total Bilirubin 0.6 (0.2-1.0) mg/dl AST 27 (13-39) U/L ALT 15 (7-52) U/L Alkaline Phosphatase 85 (34-104) U/L Albumin 4.0 (3.4-5.0) gm/dl Diagnostic Findings Chest X-Ray 09/11/24 15:59 EXAM: Radiograph of the Chest 1 View INDICATION: Shortness of breath. TECHNIQUE: Frontal view of the chest. COMPARISON: 06/17/2023 FINDINGS: Lungs and pleural spaces: Stable mild left basilar pleural thickening. No effusion or pneumothorax. Stable streaky scarring in the lower lung zones. Heart: Stable prominent cardiac shadow accentuated by technique. Mediastinum: Normal contour. Bones/joints: No fracture, erosion or dislocation. Soft tissues: No abnormality noted. No radiopaque foreign body noted. Upper abdomen: No abnormality noted. IMPRESSION: Stable chronic changes. No acute disease. ACT 112: Negative or not required by law. Electronically signed by Jalyn Steward 09-11-2024 5:05 PM ECG Additional Comments: NSR at 62 bpm. QT 438. No acute ST changes noted. Code Status & VTE Plan VTE Prophylaxis Plan VTE Prophylaxis will be ordered: Yes Supervising Physician Co-Signing Physician Notes delayed entry date of service noted above Attending Addendum: Case reviewed with the advanced practitioner. I have personally performed a history and physical examination on the patient. I have reviewed the advanced practitioner's documentation on the date of service referenced in note, and I agree with, and take responsibility for the plan of care. please refer to her notes for full details patient seen and examined, records reviewed by myself as well Ander Spicer MD
[2024-09-11] MEDS ORDERED: DEXAMETHASONE SOD INJ 4 MG/ML VIAL IV SCH (19:30)
[2024-09-11] MEDS ORDERED: ALBUTEROL HFA 8 GM INHALER INH PRN (22:03)
[2024-09-11] MEDS ORDERED: ONDANSETRON INJ 2 MG/ML 2 ML VIAL IV PRN (22:03)
[2024-09-11] MEDS: SODIUM CHLORIDE 0.9% 500 ML IV SCH (22:06)
[2024-09-11] MEDS: dexAMETHasone 6 MG in SYRINGE 0 ML IV SCH (22:07)
[2024-09-11] MEDS: DOXAZosin MESYLATE 4 MG TAB PO SCH (22:40)
[2024-09-11] MEDS: CYCLOBENZAPRINE HCL 5 MG TAB PO SCH (22:40)
[2024-09-11] MEDS: FAMOTIDINE 20 MG TAB PO SCH (23:00)
--- NOTE | 2024-09-11 23:56 | Ultrasound Report ---
Exam(s): US VENOUS BILATERAL LOWER EXTREMITIES EXAM: US Duplex Bilateral Lower Extremities Veins CLINICAL HISTORY: Reason for exam: BLE. TECHNIQUE: Real-time duplex ultrasound scan of the bilateral lower extremity veins integrating B-mode two-dimensional vascular structure, Doppler spectral analysis, color flow Doppler imaging and compression. COMPARISON: No relevant prior studies available. FINDINGS: Right deep veins: Unremarkable. The visualized deep veins of the right lower extremity are compressible with color flow. No visualized thrombus. Right superficial veins: Unremarkable. Left deep veins: Unremarkable. The visualized deep veins of the left lower extremity are compressible with color flow. No visualized thrombus. Left superficial veins: Unremarkable. Soft tissues: No acute findings. IMPRESSION: No DVT within the bilateral lower extremities. Electronically signed by: Dick Herrera MD 09/11/24 23:55 PM
[2024-09-12] MEDS ORDERED: ALBUT/IPRATROP 3MG/0.5MG NEB 3 ML VIAL NEB SCH (01:00)
[2024-09-12 06:20] LABS: Hematocrit (blood only) 38.6 % (42.0-52.0); Hemoglobin 13.1 g/dl (14.0-18.0); Mean Corpuscular Hemoglobin 30.5 pg (25.0-34.0); Mean Corpuscular Hgb Conc 33.9 g/dL (32.0-36.0); Mean Corpuscular Volume 89.8 fL (80.0-100.0); Mean Platelet Volume 10.8 fL (9.4-12.4); Platelet Count 173 K/uL (130-400); RDW Standard Deviation 42.5 fL (36.4-46.3); White Blood Count 2.25 K/ul (4.8-10.8)
[2024-09-12 06:39] LABS: BUN Creatinine Ratio 18.8 (10-20); Calcium 8.4 mg/dl (8.6-10.3); Creatinine Clr Calc Pharmacy 37.9 ml/min; Potassium 4.5 mmol/L (3.5-5.1)
[2024-09-12] MEDS: ALBUTEROL HFA 8 GM INHALER INH SCH (07:44)
[2024-09-12] MEDS ORDERED: NON-FORMULARY MEDICATION (Fluticasone-Umeclidin-Vilanter [Trelegy Ellipta] 100-62.5-25 mcg INH SCH (09:00)
--- NOTE | 2024-09-12 09:15 | Electrocardiogram Report ---
Test Reason : Blood Pressure : */* mmHG Vent. Rate : 62 BPM Atrial Rate : 62 BPM P-R Int : 312 ms QRS Dur : 80 ms QT Int : 438 ms P-R-T Axes : 7 -16 -7 degrees QTcB Int : 444 ms Sinus rhythm with 1st degree A-V block with Blocked Premature atrial complexes Possible Anterior infarct , age undetermined Nonspecific T wave abnormality Abnormal ECG When compared with ECG of 15-Jul-2024 01:40, Premature ventricular complexes are no longer Present Confirmed by Mary Sheppard (Claire) on 09/12/2024 9:15:31 AM Referred By: [facility] Confirmed By: Mary Sheppard
[2024-09-12] MEDS: guaiFENesin 600 MG TABCR PO SCH (09:19)
[2024-09-12] MEDS: ASPIRIN 81 MG ECTAB PO SCH (09:19)
[2024-09-12] MEDS: FINASTERIDE 5 MG TAB PO SCH (09:19)
[2024-09-12] MEDS: amLODIPine BESYLATE 5 MG TAB PO SCH (09:19)
[2024-09-12] MEDS: FLUoxetine HCL 10 MG CAP PO SCH (09:19)
[2024-09-12] MEDS: MULTIVITAMIN TAB PO SCH (09:19)
[2024-09-12] MEDS: BENZONATATE 100 MG CAPSULE PO SCH (09:19)
[2024-09-12] MEDS: UMECLIDINIUM/VILANTEROL 62.5/25MCG 7 PUFFS/INHALER INH SCH (09:20)
[2024-09-12] MEDS: PANTOprazole 40 MG TAB PO SCH (09:20)
[2024-09-12] MEDS: FLUTICASONE FUROATE 100MCG 14 PUFFS/INHALER INH SCH (09:21)
[2024-09-12] MEDS: ACETAMINOPHEN 325 MG TAB PO PRN (09:22)
[2024-09-12] MEDS: OSELTAMIVIR PHOSPHATE SUSP 30 MG/5 ML UDP PO SCH (12:25)
--- NOTE | 2024-09-12 16:06 | Hospitalist Progress Note ---
Date of Service September 12, 2024 Assessment & Plan (1) Acute metabolic encephalopathy: (2) Acute on chronic hypoxic respiratory failure: (3) Influenza A: (4) COVID-19: Plan: This is an 88-year-old male who is a resident at [facility] with PMH of COPD with nocturnal hypoxemia on 2 L nasal cannula O2 at bedtime, CAD s/p stent, history of AAA s/p repair 2019 following with [facility] vascular surgery, hypertension, hyperlipidemia, R renal artery stenosis, anemia, dementia and other medical problems listed below who was sent in for SOB and lethargy and was found to have acute on chronic hypoxic respiratory failure in setting of COVID- 19 and influenza A infections. Hypoxic in mid 80s at the facility but improved to 96% on 4 L nasal cannula upon arrival (baseline O2 requirement : 2L NC O2 HS) No leukocytosis, VBG pH within normal limits, procalcitonin neg SARSCov2, influenza A both positive on PCR Isolation precautions Continue Tamiflu renally dosed at 30mg BID x 5 day course Decadron 6mg IV daily, antitussives Remdesivir contraindicated due to patient's intermittent bradycardia DuoNebs Q4 HR as needed shortness of breath or wheezing Continue home inhalers , incentive spirometer. (5) Lower extremity edema: Plan: Noted 3 days ago, took 40mg lasix x 1 yesterday Appears dry on exam in setting of infxn as above - hold off on further lasix for now Echo with EF of 55 to 60%, normal LV systolic function. BLE Doppler negative for DVT. Continue to monitor for volume status. (6) S/P AAA repair: Plan: Known endoleak s/p repair of abdominal aortic aneurysm with Cook Zenith stent graft by Dr. Townsend on 01/26/2019 for 5.6 cm AAA Family elected for no further surveillance of the AAA and no treatment of the endoleak No chemical VTE (7) COPD (chronic obstructive pulmonary disease): Plan: Dexamethasone, PRN Duonebs and home inhalers as above (8) Dementia: Plan: Talkative and alert to self, family at baseline Other chronic conditions: HTN : Continue amlodpine daily BPH : Continue doxazosin, finasteride Mood disorder : Continue SSRI GERD: Continue protonix CKD III: Cr 1.69 (bl ~ 1.6-1.7). Monitor with daily BMP DVT Ppx: SCDs Code status: DNR/DNI per discussion with family PCP: Sang Dispo: admitted to [facility] tele Admission and Anticipated Discharge Date Admission Date: September 11, 2024 Subjective Patient was seen and examined at bedside. Patient was lying in bed, on 2 and half liter oxygen via nasal cannula, NAD. Per RN, patient is eating okay, has no new issues overnight. Patient denies pain, is very hard of hearing, reports cough improving. Physical Exam Physical Exam: General Appearance: WD/WN, NAD, lying in bed, awake and alert Head: normocephalic, atraumatic Eyes: normal inspection, PERRL ENT: external ear and nose normal, oropharynx with moist mucous membranes Neck: normal visual inspection Respiratory: normal respiratory effort, lungs clear to auscultation, scattered expiratory wheezes. No accessory muscle use Cardiovascular: regular rate, rhythm, normal peripheral pulses, trace bilat. pedal edema. Vessels: no JVD Chest: normal inspection of chest Abdomen/GI: normal bowel sounds, soft, nontender, no hepatosplenomegaly Extremities/Musculoskeletal: no cyanosis or clubbing, extremities motor strength 5/5 Neurologic: PERRL, EOMI, accommodation nl, no face palsy, no dysarthria, CN's II-XI intact bilaterally and moves all extremities Psychiatric: A+Ox person only, euthymic affect Skin: no rashes, normal color, warm/dry Results & Data Results & Data Vital Signs (Past 12 Hours) Vital Signs Temp Pulse Resp BP Pulse Ox O2 Del Method O2 Flow Rate 09/12/24 15:00 36.6 C 64 16 144/80 H 95 Nasal Cannula 4 09/12/24 11:48 36.5 C 66 18 119/44 L 94 Room Air 09/12/24 08:08 36.3 C L 69 18 105/58 L 95 Nasal Cannula 3 09/12/24 07:45 57 L 15 96 Nasal Cannula 3
[2024-09-13 08:16] LABS: Hematocrit (blood only) 38.9 % (42.0-52.0); Hemoglobin 13.3 g/dl (14.0-18.0); Mean Corpuscular Hemoglobin 30.7 pg (25.0-34.0); Mean Corpuscular Hgb Conc 34.2 g/dL (32.0-36.0); Mean Corpuscular Volume 89.8 fL (80.0-100.0); Mean Platelet Volume 10.6 fL (9.4-12.4); Platelet Count 190 K/uL (130-400); RDW Coefficient of Variation 12.9 % (11.5-14.5); RDW Standard Deviation 42.7 fL (36.4-46.3); Red Blood Count 4.33 M/uL (4.70-6.10); White Blood Count 5.57 K/ul (4.8-10.8)
[2024-09-13 08:32] LABS: BUN Creatinine Ratio 21.9 (10-20); Calcium 8.5 mg/dl (8.6-10.3); Creatinine Clr Calc Pharmacy 35.4 ml/min; Magnesium 1.8 mg/dl (1.7-2.4); Phosphorus 2.9 mg/dl (2.5-4.9); Potassium 4.1 mmol/L (3.5-5.1)
--- NOTE | 2024-09-13 10:25 | Hospitalist Progress Note ---
Date of Service September 13, 2024 Assessment & Plan (1) Acute metabolic encephalopathy: (2) Acute on chronic hypoxic respiratory failure: (3) Influenza A: (4) COVID-19: Plan: This is an 88-year-old male who is a resident at [facility] with PMH of COPD with nocturnal hypoxemia on 2 L nasal cannula O2 at bedtime, CAD s/p stent, history of AAA s/p repair 2019 following with [facility] [place], hypertension, hyperlipidemia, R renal artery stenosis, anemia, dementia and other medical problems listed below who was sent in for SOB and lethargy and was found to have acute on chronic hypoxic respiratory failure in setting of COVID- 19 and influenza A infections. Hypoxic in mid 80s at the facility but improved to 96% on 4 L nasal cannula upon arrival (baseline O2 requirement : 2L NC O2 HS) No leukocytosis, VBG pH within normal limits, procalcitonin neg SARSCov2, influenza A both positive on PCR Isolation precautions Continue Tamiflu renally dosed at 30mg BID x 5 day course Decadron 6mg IV daily, antitussives Remdesivir contraindicated due to patient's intermittent bradycardia DuoNebs Q4 HR as needed shortness of breath or wheezing Continue home inhalers , incentive spirometer. Remains medically stable and requiring 2 L to maintain saturation No other significant symptoms Will have PT OT evaluation and to get stable O2 saturation (5) Lower extremity edema: Plan: Noted 3 days ago, took 40mg lasix x 1 yesterday Appears dry on exam in setting of infxn as above - hold off on further lasix for now Echo with EF of 55 to 60%, normal LV systolic function. BLE Doppler negative for DVT. Continue to monitor for volume status. Bilateral leg edema has improved (6) S/P AAA repair: Plan: Known endoleak s/p repair of abdominal aortic aneurysm with Cook Zenith stent graft by Dr. Townsend on 01/26/2019 for 5.6 cm AAA Family elected for no further surveillance of the AAA and no treatment of the endoleak No chemical VTE (7) COPD (chronic obstructive pulmonary disease): Plan: Dexamethasone, PRN Duonebs and home inhalers as above Minimal shortness of breath at rest with wheezing (8) Dementia: Plan: Talkative and alert to self, family at baseline Seems to be at his baseline Other chronic conditions: HTN : Continue amlodpine daily BPH : Continue doxazosin, finasteride Mood disorder : Continue SSRI GERD: Continue protonix CKD III: Cr 1.69 (bl ~ 1.6-1.7). Monitor with daily BMP DVT Ppx: SCDs Code status: DNR/DNI per discussion with family PCP: Sang Dispo: admitted to [facility] tele Admission and Anticipated Discharge Date Admission Date: September 11, 2024 Subjective 09/13/2024 The patient was seen and examined in telemetry unit He has been having some wheezing and minimal shortness of breath at rest Denies any other significant symptoms He wants to be discharged Review of Systems Review of Systems: All systems reviewed and are unremarkable except as noted below Physical Exam Physical Exam: Lying in bed with minimal distress due to shortness of breath Constitutional: well developed, well nourished, + ill appearing and average body habitus Eyes: PERRL, conjunctivae normal, anicteric sclerae ENMT: external ear and nose normal, oropharynx normal Neck: trachea midline, no thyromegaly Respiratory: + respiratory distress (Minimal distress at rest with wheezing and minimal cough) Auscultation: + diminished lung sounds, + crackles and + wheezes Cardiovascular: Rate/Rhythm: regular rate and regular rhythm; not tachycardic Heart Sounds: normal S1 and normal S2; no murmur Extremities: no edema Gastrointestinal (Abdomen): Inspection/Auscultation: normal bowel sounds; abdomen not distended Percussion/Palpation: abdomen soft; abdomen nontender Musculoskeletal: No acute arthritis involving any of the joints Neurologic: normal touch/pain/proprioception and moves all extremities; no focal motor deficits Pleasantly confused from dementia Lymphatic: no cervical or axillary lymphadenopathy Results & Data Results & Data Vital Signs (Past 12 Hours) Vital Signs Temp Pulse Pulse Resp BP Pulse Ox O2 Del Method 09/13/24 07:55 36.3 C L 60 22 140/75 97 Nasal Cannula 09/13/24 07:34 62 18 97 Nasal Cannula 09/13/24 02:51 36.5 C 60 18 129/70 98 Nasal Cannula 09/12/24 22:57 58 L 09/12/24 22:33 36.7 C 59 L 18 117/69 96 Nasal Cannula O2 Flow Rate 09/13/24 07:55 2 09/13/24 07:34 2 09/13/24 02:51 12/30/24 22:57 09/12/24 22:33 2 Laboratory Results Short CBC 09/13/24 Range/Units 07:56 WBC 5.57 (4.8-10.8) K/ul Hgb 13.3 L (14.0-18.0) g/dl Hct 38.9 L (42.0-52.0) % Plt Count 190 (130-400) K/uL BMP 09/13/24 07:56 Sodium 137 Potassium 4.1 Chloride 104 Carbon Dioxide 26 BUN 30 H Creatinine 1.37 Glucose 87 Calcium 8.5 L Medications Administered Current Inpatient Medications Acetaminophen (Acetaminophen 325 Mg Tab) 650 mg PO Q4H PRN PRN Reason: Pain or Fever Stop: 10/11/24 22:02 Last Admin: 09/12/24 09:22 Dose: 650 mg Albuterol (Albuterol Hfa 8 Gm Inhaler) 2 puffs INH Q4 PRN PRN Reason: COPD Stop: 10/11/24 22:02 Albuterol (Albuterol Hfa 8 Gm Inhaler) 2 puffs INH DAILY@0845 [facility] Stop: 10/12/24 08:44 Last Admin: 09/13/24 07:32 Dose: 2 puffs Albuterol (Albut/Ipratrop 3mg/0.5mg Neb 3 Ml Vial) 3 ml NEB QIDR PRN; Protocol PRN Reason: Shortness Of Breath Or Wheezin Stop: 10/11/24 22:02 Amlodipine Besylate (Amlodipine Besylate 5 Mg Tab) 5 mg PO QAM [facility] Stop: 10/12/24 08:59 Last Admin: 09/13/24 08:57 Dose: 5 mg Aspirin (Aspirin 81 Mg Ectab) 81 mg PO QAM [facility] Stop: 10/12/24 08:59 Last Admin: 09/13/24 08:56 Dose: 81 mg Benzonatate (Benzonatate 100 Mg Capsule) 100 mg PO TID [facility] Stop: 10/12/24 08:59 Last Admin: 09/13/24 08:56 Dose: 100 mg Cyclobenzaprine HCl (Cyclobenzaprine Hcl 5 Mg Tab) 5 mg PO HS [facility] Stop: 10/11/24 22:02 Last Admin: 09/12/24 19:39 Dose: 5 mg Doxazosin Mesylate (Doxazosin Mesylate 4 Mg Tab) 4 mg PO HS [facility] Stop: 10/11/24 22:02 Last Admin: 09/12/24 19:39 Dose: 4 mg Famotidine (Famotidine 20 Mg Tab) 20 mg PO BID [facility] Stop: 10/11/24 22:02 Last Admin: 09/13/24 08:57 Dose: 20 mg Finasteride (Finasteride 5 Mg Tab) 5 mg PO QAM [facility] Stop: 10/12/24 08:59 Last Admin: 09/13/24 08:56 Dose: 5 mg Fluoxetine HCl (Fluoxetine Hcl 10 Mg Cap) 10 mg PO QAM [facility] Stop: 10/12/24 08:59 Last Admin: 09/13/24 08:56 Dose: 10 mg Fluticasone Furoate (Fluticasone Furoate 100mcg 14 Puffs/Inhaler) 1 puffs INH DAILY [facility] Stop: 10/12/24 08:59 Last Admin: 09/13/24 08:57 Dose: 1 puffs Guaifenesin (Guaifenesin 600 Mg Tabcr) 600 mg PO Q12 [facility] Stop: 10/12/24 08:59 Last Admin: 09/13/24 08:56 Dose: 600 mg Dexamethasone 6 mg/ Syringe 1.5 mls @ 1 mls/min IV DAILY [facility] Stop: 10/11/24 19:59 Last Admin: 09/13/24 09:50 Dose: 1 mls/min Multivitamins (Multivitamin Tab) [facility] [place]: 10/12/24 08:59 Last Admin: 09/13/24 08:57 Dose: 1 tab Ondansetron HCl (Ondansetron Inj 2 Mg/Ml 2 Ml Vial) 4 mg IV Q6H PRN PRN Reason: Nausea Stop: 10/11/24 22:02 Oseltamivir Phosphate (Oseltamivir Phosphate Susp 30 Mg/5 Ml Udp) 30 mg PO BID [facility]; Protocol Stop: 09/17/24 08:59 Last Admin: 09/13/24 09:50 Dose: 30 mg Pantoprazole Sodium (Pantoprazole 40 Mg Tab) 40 mg PO QAM [facility] Stop: 10/12/24 08:59 Last Admin: 09/13/24 08:56 Dose: 40 mg Polyethylene Glycol (Polyethylene (Miralax) 17 Gm Pack) 17 gm PO DAILY PRN PRN Reason: Constipation Stop: 10/11/24 22:02 Umeclidinium/Vilanterol (Umeclidinium/Vilanterol 62.5/25mcg 7 Puffs/Inhaler) 1 puffs INH DAILY [facility] Stop: 10/12/24 08:59 Last Admin: 09/13/24 08:58 Dose: 1 puffs
[2024-09-14] MEDS: ALBUT/IPRATROP 3MG/0.5MG NEB 3 ML VIAL NEB PRN (00:53)
[2024-09-14] MEDS: MAGNESIUM SULFATE / D5W 1 GM/100 ML BAG IV SCH (01:43)
--- NOTE | 2024-09-14 02:47 | XRay Report ---
EXAM: XR chest 1V portable CLINICAL HISTORY: Wheezing TECHNIQUE: An X-ray image of the chest is obtained in AP projection. COMPARISON: 09/11/2024. FINDINGS: Pulmonary Parenchyma: Lungs are clear bilaterally. No evidence of consolidation, collapse, or focal opacities. No pulmonary nodules are identified. No evidence of pleural effusion or pleural thickening. Heart and Mediastinum: Heart size and shape are normal. No mediastinal widening or masses. No hilar or mediastinal lymphadenopathy. Bony Thorax: Bony thorax appears intact without fractures or deformities. Soft Tissues: Soft tissues overlying the chest wall are unremarkable. IMPRESSION: 1. Normal chest X-ray. No acute cardiopulmonary abnormalities are identified. 2. No residual peribronchial cuffing compared to last CR. Electronically signed by Hunter Sagastume 09-14-2024 02:47 AM
--- NOTE | 2024-09-14 14:52 | Hospitalist Progress Note ---
Date of Service September 14, 2024 Assessment & Plan (1) Acute metabolic encephalopathy: (2) Acute on chronic hypoxic respiratory failure: (3) Influenza A: (4) COVID-19: Plan: This is an 88-year-old male who is a resident at [facility] with PMH of COPD with nocturnal hypoxemia on 2 L nasal cannula O2 at bedtime, CAD s/p stent, history of AAA s/p repair [place] [facility] [place], hypertension, hyperlipidemia, R renal artery stenosis, anemia, dementia and other medical problems listed below who was sent in for SOB and lethargy and was found to have acute on chronic hypoxic respiratory failure in setting of COVID- 19 and influenza A infections. Hypoxic in mid 80s at the facility but improved to 96% on 4 L nasal cannula upon arrival (baseline O2 requirement : 2L NC O2 HS) No leukocytosis, VBG pH within normal limits, procalcitonin neg SARSCov2, influenza A both positive on PCR Isolation precautions Continue Tamiflu renally dosed at 30mg BID x 5 day course Decadron 6mg IV daily, antitussives Remdesivir contraindicated due to patient's intermittent bradycardia DuoNebs Q4 HR as needed shortness of breath or wheezing Continue home inhalers , incentive spirometer. Remains medically stable and requiring 2 L to maintain saturation No other significant symptoms Will have PT OT evaluation and to get stable O2 saturation Remains medically stable without any respiratory symptoms Awaiting placement (5) Lower extremity edema: Plan: Noted 3 days ago, took 40mg lasix x 1 yesterday Appears dry on exam in setting of infxn as above - hold off on further lasix for now Echo with EF of 55 to 60%, normal LV systolic function. BLE Doppler negative for DVT. Continue to monitor for volume status. Bilateral leg edema has improved (6) S/P AAA repair: Plan: Known endoleak s/p repair of abdominal aortic aneurysm with Cook Zenith stent graft by Dr. Townsend on 01/26/2019 for 5.6 cm AAA Family elected for no further surveillance of the AAA and no treatment of the endoleak No chemical VTE (7) COPD (chronic obstructive pulmonary disease): Plan: Dexamethasone, PRN Duonebs and home inhalers as above Minimal shortness of breath at rest with wheezing No exacerbation (8) Dementia: Plan: Talkative and alert to self, family at baseline Seems to be at his baseline Other chronic conditions: HTN : Continue amlodpine daily BPH : Continue doxazosin, finasteride Mood disorder : Continue SSRI GERD: Continue protonix CKD III: Cr 1.69 (bl ~ 1.6-1.7). Monitor with daily BMP DVT Ppx: SCDs Code status: DNR/DNI per discussion with family PCP: Sang Dispo: admitted to [facility] tele Admission and Anticipated Discharge Date Admission Date: September 11, 2024 Subjective 09/13/2024 The patient was seen and examined in telemetry unit He has been having some wheezing and minimal shortness of breath at rest Denies any other significant symptoms He wants to be discharged 09/14/2024 The patient was seen and examined in telemetry unit He has been much better and has minimal cough but no shortness of breath Has been saturating normally on room air and awaiting placement Review of Systems Review of Systems: All systems reviewed and are unremarkable except as noted below Physical Exam Physical Exam: Lying in bed with minimal distress due to shortness of breath Constitutional: well developed, well nourished, + ill appearing and average body habitus Eyes: PERRL, conjunctivae normal, anicteric sclerae ENMT: external ear and nose normal, oropharynx normal Neck: trachea midline, no thyromegaly Respiratory: + respiratory distress (Minimal distress at rest with wheezing and minimal cough) Auscultation: + diminished lung sounds, + crackles and + wheezes Cardiovascular: Rate/Rhythm: regular rate and regular rhythm; not tachycardic Heart Sounds: normal S1 and normal S2; no murmur Extremities: no edema Gastrointestinal (Abdomen): Inspection/Auscultation: normal bowel sounds; abdomen not distended Percussion/Palpation: abdomen soft; abdomen nontender Neurologic: normal touch/pain/proprioception and moves all extremities; no focal motor deficits Lymphatic: no cervical or axillary lymphadenopathy Results & Data Results & Data Vital Signs (Past 12 Hours) Vital Signs Temp Pulse Pulse Pulse Resp BP Pulse Ox 09/14/24 14:12 36.5 C 68 18 159/79 H 96 09/14/24 13:08 67 18 97 09/14/24 11:06 55 L 17 138/76 96 09/14/24 10:29 09/14/24 09:58 36.5 C 65 18 125/79 96 09/14/24 07:30 54 L O2 Del Method 09/14/24 14:12 Room Air 09/14/24 13:08 Room Air 09/14/24 11:06 Room Air 09/14/24 10:29 Room Air 09/14/24 09:58 Room Air 09/14/24 07:30 Medications Administered Current Inpatient Medications Acetaminophen (Acetaminophen 325 Mg Tab) 650 mg PO Q4H PRN PRN Reason: Pain or Fever Stop: 10/11/24 22:02 Last Admin: 09/12/24 09:22 Dose: 650 mg Albuterol (Albuterol Hfa 8 Gm Inhaler) 2 puffs INH Q4 PRN PRN Reason: COPD Stop: 10/11/24 22:02 Albuterol (Albuterol Hfa 8 Gm Inhaler) 2 puffs INH DAILY@0845 [facility] Stop: 10/12/24 08:44 Last Admin: 09/14/24 07:43 Dose: Not Given Albuterol (Albut/Ipratrop 3mg/0.5mg Neb 3 Ml Vial) 3 ml NEB QIDR PRN; Protocol PRN Reason: Shortness Of Breath Or Wheezin Stop: 10/11/24 22:02 Last Admin: 09/14/24 13:04 Dose: 3 ml Amlodipine Besylate (A[facility]ipine Besylate 5 Mg Tab) [facility]: 10/12/24 08:59 Last Admin: 09/14/24 09:39 Dose: 5 mg Aspirin (Aspirin 81 Mg Ectab) 81 mg PO QAM [facility] Stop: 10/12/24 08:59 Last Admin: 09/14/24 09:38 Dose: 81 mg Benzonatate (Benzonatate 100 Mg Capsule) 100 mg PO TID [facility] Stop: 10/12/24 08:59 Last Admin: 09/14/24 14:09 Dose: 100 mg Cyclobenzaprine HCl (Cyclobenzaprine Hcl 5 Mg Tab) 5 mg PO [facility] Stop: 10/11/24 22:02 Last Admin: 09/13/24 21:00 Dose: 5 mg Doxazosin Mesylate (Doxazosin Mesylate 4 Mg Tab) 4 mg PO [facility] Stop: 10/11/24 22:02 Last Admin: 09/13/24 21:00 Dose: 4 mg Famotidine (Famotidine 20 Mg Tab) 20 mg PO BID [facility] Stop: 10/11/24 22:02 Last Admin: 09/14/24 09:38 Dose: 20 mg Finasteride (Finasteride 5 Mg Tab) 5 mg PO QAM [facility] Stop: 10/12/24 08:59 Last Admin: 09/14/24 09:39 Dose: 5 mg Fluoxetine HCl (Fluoxetine Hcl 10 Mg Cap) 10 mg PO QAM [facility] Stop: 10/12/24 08:59 Last Admin: 09/14/24 09:38 Dose: 10 mg Fluticasone Furoate (Fluticasone Furoate 100mcg 14 Puffs/Inhaler) 1 puffs INH DAILY [facility] Stop: 10/12/24 08:59 Last Admin: 09/14/24 09:39 Dose: 1 puffs Guaifenesin (Guaifenesin 600 Mg Tabcr) 600 mg PO Q12 [facility] Stop: 10/12/24 08:59 Last Admin: 09/14/24 09:39 Dose: 600 mg Dexamethasone 6 mg/ Syringe 1.5 mls @ 1 mls/min IV DAILY [facility] Stop: 10/11/24 19:59 Last Admin: 09/14/24 09:38 Dose: 1 mls/min Multivitamins (Multivitamin Tab) 1 tab PO QAM [facility] Stop: 10/12/24 08:59 Last Admin: 09/14/24 09:38 Dose: 1 tab Ondansetron HCl (Ondansetron Inj 2 Mg/Ml 2 Ml Vial) 4 mg IV Q6H PRN PRN Reason: Nausea Stop: 10/11/24 22:02 Oseltamivir Phosphate (Oseltamivir Phosphate Susp 30 Mg/5 Ml Udp) 30 mg PO BID [facility]; Protocol Stop: 09/17/24 08:59 Last Admin: 09/14/24 09:41 Dose: 30 mg Pantoprazole Sodium (Pantoprazole 40 Mg Tab) 40 mg PO QAM [facility] Stop: 10/12/24 08:59 Last Admin: 09/14/24 09:38 Dose: 40 mg Polyethylene Glycol (Polyethylene (Miralax) 17 Gm Pack) 17 gm PO DAILY PRN PRN Reason: Constipation Stop: 10/11/24 22:02 Umeclidinium/Vilanterol (Umeclidinium/Vilanterol 62.5/25mcg 7 Puffs/Inhaler) 1 puffs INH DAILY [facility] Stop: 10/12/24 08:59 Last Admin: 09/14/24 09:39 Dose: 1 puffs
[2024-09-14] MEDS: risperiDONE 0.25 MG TAB PO STA (19:04)
[2024-09-14] MEDS: OLANZapine 10 MG/2.1 ML SDV IM STA (23:01)
[2024-09-15 11:22] LABS: Creatinine Clr Calc Pharmacy 30.7 ml/min
[2024-09-15] MEDS: FLUoxetine HCL 10 MG CAP PO STA (14:04)
--- NOTE | 2024-09-15 16:01 | Hospitalist Progress Note ---
Date of Service September 15, 2024 Assessment & Plan (1) Acute metabolic encephalopathy: (2) Acute on chronic hypoxic respiratory failure: (3) Influenza A: (4) COVID-19: Plan: This is an 88-year-old male who is a resident at [facility] with PMH of COPD with nocturnal hypoxemia on 2 L nasal cannula O2 at bedtime, CAD s/p stent, history of AAA s/p repair 2019 following with [facility] vascular surgery, hypertension, hyperlipidemia, R renal artery stenosis, anemia, dementia and other medical problems listed below who was sent in for SOB and lethargy and was found to have acute on chronic hypoxic respiratory failure in setting of COVID- 19 and influenza A infections. Hypoxic in mid 80s at the facility but improved to 96% on 4 L nasal cannula upon arrival (baseline O2 requirement : 2L NC O2 HS) No leukocytosis, VBG pH within normal limits, procalcitonin neg SARSCov2, influenza A both positive on PCR Isolation precautions Continue Tamiflu renally dosed at 30mg BID x 5 day course Decadron 6mg IV daily, antitussives Remdesivir contraindicated due to patient's intermittent bradycardia DuoNebs Q4 HR as needed shortness of breath or wheezing Continue home inhalers , incentive spirometer. Remains medically stable and requiring 2 L to maintain saturation No other significant symptoms Will have PT OT evaluation and to get stable O2 saturation Remains medically stable without any respiratory symptoms No respiratory symptoms and saturating normally on room air Acute delirium Anxiety and agitation with history of dementia Required 1 dose of IM Zyprexa last night and has been having one-to-one sitter Will increase his Prozac from 10 to 20 mg and observe while he is in the hospital Regular diet was prescribed as per the daughter (5) Lower extremity edema: Plan: Noted 3 days ago, took 40mg lasix x 1 yesterday Appears dry on exam in setting of infxn as above - hold off on further lasix for now Echo with EF of 55 to 60%, normal LV systolic function. BLE Doppler negative for DVT. Continue to monitor for volume status. Bilateral leg edema has improved (6) S/P AAA repair: Plan: Known endoleak s/p repair of abdominal aortic aneurysm with Cook Zenith stent graft by Dr. Townsend on 01/26/2019 for 5.6 cm AAA Family elected for no further surveillance of the AAA and no treatment of the endoleak No chemical VTE (7) COPD (chronic obstructive pulmonary disease): Plan: Dexamethasone, PRN Duonebs and home inhalers as above Minimal shortness of breath at rest with wheezing No exacerbation (8) Dementia: Plan: Talkative and alert to self, family at baseline Seems to be at his baseline Other chronic conditions: HTN : Continue amlodpine daily BPH : Continue doxazosin, finasteride Mood disorder : Continue SSRI GERD: Continue protonix CKD III: Cr 1.69 (bl ~ 1.6-1.7). Monitor with daily BMP DVT Ppx: SCDs Code status: DNR/DNI per discussion with family PCP: Sang Dispo: admitted to [facility] tele Admission and Anticipated Discharge Date Admission Date: September 11, 2024 Subjective 09/13/2024 The patient was seen and examined in telemetry unit He has been having some wheezing and minimal shortness of breath at rest Denies any other significant symptoms He wants to be discharged 09/14/2024 The patient was seen and examined in telemetry unit He has been much better and has minimal cough but no shortness of breath Has been saturating normally on room air and awaiting placement 09/15/2024 The patient was seen and examined in telemetry unit He has had episode of anxiety and agitation last night and required 1 dose of Zyprexa Has been feeling much better He wanted to be discharged Review of Systems Review of Systems: All systems reviewed and are unremarkable except as noted below Physical Exam Physical Exam: Lying in bed with minimal distress due to shortness of breath Constitutional: well developed, well nourished, + ill appearing and average body habitus Eyes: PERRL, conjunctivae normal, anicteric sclerae ENMT: external ear and nose normal, oropharynx normal Neck: trachea midline, no thyromegaly Respiratory: + respiratory distress (Minimal distress at rest with wheezing and minimal cough) Auscultation: + diminished lung sounds, + crackles and + wheezes Cardiovascular: Rate/Rhythm: regular rate and regular rhythm; not tachycardic Heart Sounds: normal S1 and normal S2; no murmur Extremities: no edema Gastrointestinal (Abdomen): Inspection/Auscultation: normal bowel sounds; abdomen not distended Percussion/Palpation: abdomen soft; abdomen nontender Neurologic: normal touch/pain/proprioception and moves all extremities; no focal motor deficits Lymphatic: no cervical or axillary lymphadenopathy Results & Data Results & Data Vital Signs (Past 12 Hours) Vital Signs Temp Pulse Resp BP Pulse Ox Pulse Ox O2 Del Method 09/15/24 15:06 66 20 93 Room Air 09/15/24 14:26 94 09/15/24 10:13 36.5 C 65 20 146/83 H 95 Room Air 09/15/24 08:00 Room Air 09/15/24 07:35 36.5 C 63 19 118/69 93 Room Air 09/15/24 07:31 56 L 18 93 Room Air O2 Flow Rate 09/15/24 15:06 09/15/24 14:26 0 09/15/24 10:13 09/15/24 08:00 09/15/24 07:35 09/15/24 07:31 Laboratory Results [facility] 09/15/24 10:44 Creatinine 1.58 H Medications Administered Current Inpatient Medications Acetaminophen (Acetaminophen 325 Mg Tab) 650 mg PO Q4H PRN PRN Reason: Pain or Fever Stop: 10/11/24 22:02 Last Admin: 09/14/24 17:55 Dose: 650 mg Albuterol (Albuterol Hfa 8 Gm Inhaler) 2 puffs INH Q4 PRN PRN Reason: COPD Stop: 10/11/24 22:02 Albuterol (Albuterol Hfa 8 Gm Inhaler) 2 puffs INH DAILY@0845 [facility] Stop: 10/12/24 08:44 Last Admin: 09/15/24 07:30 Dose: 2 puffs Albuterol (Albut/Ipratrop 3mg/0.5mg Neb 3 Ml Vial) 3 ml NEB QIDR PRN; Protocol PRN Reason: Shortness Of Breath Or Wheezin Stop: 10/11/24 22:02 Last Admin: 09/15/24 14:49 Dose: 3 ml Amlodipine Besylate (Amlodipine Besylate 5 Mg Tab) 5 mg PO QAM [facility] Stop: 10/12/24 08:59 Last Admin: 09/15/24 09:58 Dose: 5 mg Aspirin (Aspirin 81 Mg Ectab) 81 mg PO QAM [facility] Stop: 10/12/24 08:59 Last Admin: 09/15/24 09:58 Dose: 81 mg Benzonatate (Benzonatate 100 Mg Capsule) 100 mg PO TID [facility] Stop: 10/12/24 08:59 Last Admin: 09/15/24 14:05 Dose: 100 mg Cyclobenzaprine HCl (Cyclobenzaprine Hcl 5 Mg Tab) 5 mg PO HS RABIA Stop: 10/11/24 22:02 Last Admin: 09/14/24 20:28 Dose: 5 mg Doxazosin Mesylate (Doxazosin Mesylate 4 Mg Tab) 4 mg PO HS RABIA Stop: 10/11/24 22:02 Last Admin: 09/14/24 20:28 Dose: 4 mg Famotidine (Famotidine 20 Mg Tab) 20 mg PO BID [facility] Stop: 10/11/24 22:02 Last Admin: 09/15/24 09:58 Dose: 20 mg Finasteride (Finasteride 5 Mg Tab) 5 mg PO QAM [facility] Stop: 10/12/24 08:59 Last Admin: 09/15/24 09:57 Dose: 5 mg Fluoxetine HCl (Fluoxetine Hcl 20 Mg Cap) 20 mg PO QAM [facility] Stop: 10/16/24 08:59 Fluticasone Furoate (Fluticasone Furoate 100mcg 14 Puffs/Inhaler) 1 puffs INH DAILY [facility] Stop: 10/12/24 08:59 Last Admin: 09/15/24 09:58 Dose: 1 puffs Guaifenesin (Guaifenesin 600 Mg Tabcr) 600 mg PO Q12 [facility] Stop: 10/12/24 08:59 Last Admin: 09/15/24 09:57 Dose: 600 mg Dexamethasone 6 mg/ Syringe 1.5 mls @ 1 mls/min IV DAILY [facility] Stop: 10/11/24 19:59 Last Admin: 09/15/24 09:56 Dose: 1 mls/min Multivitamins (Multivitamin Tab) 1 tab PO QAM [facility] Stop: 10/12/24 08:59 Last Admin: 09/15/24 09:57 Dose: 1 tab Olanzapine (Olanzapine 10 Mg/2.1 Ml Sdv) 2.5 mg IM Q4H PRN PRN Reason: Agitation Stop: 10/14/24 22:48 Ondansetron HCl (Ondansetron Inj 2 Mg/Ml 2 Ml Vial) 4 mg IV Q6H PRN PRN Reason: Nausea Stop: 10/11/24 22:02 Oseltamivir Phosphate (Oseltamivir Phosphate Susp 30 Mg/5 Ml Udp) 30 mg PO BID [facility]; Protocol Stop: 09/17/24 08:59 Last Admin: 09/15/24 10:00 Dose: 30 mg Pantoprazole Sodium (Pantoprazole 40 Mg Tab) 40 mg PO QAM [facility] Stop: 10/12/24 08:59 Last Admin: 09/15/24 09:57 Dose: 40 mg Polyethylene Glycol (Polyethylene (Miralax) 17 Gm Pack) 17 gm PO DAILY PRN PRN Reason: Constipation Stop: 10/11/24 22:02 Umeclidinium/Vilanterol (Umeclidinium/Vilanterol 62.5/25mcg 7 Puffs/Inhaler) 1 puffs INH DAILY [facility] Stop: 10/12/24 08:59 Last Admin: 09/15/24 10:00 Dose: 1 puffs
[2024-09-16 06:28] LABS: Appearance Urine Clear (Clear); Bacteria Urine Automated None Seen (None Seen); Bilirubin Urine Negative (Negative); Blood Urine Negative (Negative); Cast Urine Automated 0-2 /lpf (0-2); Color Urine Yellow; Epithelial Cell Urine Auto 0-2 /hpf (0-2); Glucose Urine UA Negative (Negative); Ketones Urine Trace (Negative); Leukocyte Esterase Urine Negative (Negative); Nitrite Urine Negative (Negative); Protein Urine 1+ (Negative); RBC Urine Automated 0-2 /hpf (0-2); Urobilinogen Urine Negative (Negative); WBC Urine Automated 0-5 /hpf (0-5); pH Urine 5.5 (4.5-7.5)
[2024-09-16] MEDS: FLUoxetine HCL 20 MG CAP PO SCH (09:33)
[2024-09-16] MEDS: POLYETHYLENE (MIRALAX) 17 GM PACK PO PRN (13:24)
--- NOTE | 2024-09-16 16:41 | Hospitalist Progress Note ---
Date of Service September 16, 2024 Assessment & Plan (1) Acute metabolic encephalopathy: (2) Acute on chronic hypoxic respiratory failure: (3) Influenza A: (4) COVID-19: Plan: This is an 88-year-old male who is a resident at [facility] with PMH of COPD with nocturnal hypoxemia on 2 L nasal cannula O2 at bedtime, CAD s/p stent, history of AAA s/p repair 2019 following with [facility] vascular surgery, hypertension, hyperlipidemia, R renal artery stenosis, anemia, dementia and other medical problems listed below who was sent in for SOB and lethargy and was found to have acute on chronic hypoxic respiratory failure in setting of COVID- 19 and influenza A infections. Hypoxic in mid 80s at the facility but improved to 96% on 4 L nasal cannula upon arrival (baseline O2 requirement : 2L NC O2 HS) No leukocytosis, VBG pH within normal limits, procalcitonin neg SARSCov2, influenza A both positive on PCR Isolation precautions Continue Tamiflu renally dosed at 30mg BID x 5 day course Decadron 6mg IV daily, antitussives Remdesivir contraindicated due to patient's intermittent bradycardia DuoNebs Q4 HR as needed shortness of breath or wheezing Continue home inhalers , incentive spirometer. Remains medically stable and requiring 2 L to maintain saturation No other significant symptoms Will have PT OT evaluation and to get stable O2 saturation Remains medically stable without any respiratory symptoms No respiratory symptoms and saturating normally on room air Minimal wheezing but has been saturating normally on room air Was getting more agitated during physical therapy and was unable to follow-up instructions Acute delirium Anxiety and agitation with history of dementia Required 1 dose of IM Zyprexa last night and has been having one-to-one sitter Will increase his Prozac from 10 to 20 mg and observe while he is in the hospital Regular diet was prescribed as per the daughter Pleasantly confused no acute delirium (5) Lower extremity edema: Plan: Noted 3 days ago, took 40mg lasix x 1 yesterday Appears dry on exam in setting of infxn as above - hold off on further lasix for now Echo with EF of 55 to 60%, normal LV systolic function. BLE Doppler negative for DVT. Continue to monitor for volume status. Bilateral leg edema has improved (6) S/P AAA repair: Plan: Known endoleak s/p repair of abdominal aortic aneurysm with Cook Zenith stent graft by Dr. Townsend on 01/26/2019 for 5.6 cm AAA Family elected for no further surveillance of the AAA and no treatment of the endoleak No chemical VTE (7) COPD (chronic obstructive pulmonary disease): Plan: Dexamethasone, PRN Duonebs and home inhalers as above Minimal shortness of breath at rest with wheezing No exacerbation Has been getting as needed nebulizer treatment for wheezing (8) Dementia: Plan: Talkative and alert to self, family at baseline Seems to be at his baseline Other chronic conditions: HTN : Continue amlodpine daily BPH : Continue doxazosin, finasteride Mood disorder : Continue SSRI GERD: Continue protonix CKD III: Cr 1.69 (bl ~ 1.6-1.7). Monitor with daily BMP DVT Ppx: SCDs Code status: DNR/DNI per discussion with family PCP: Sang Dispo: admitted to [facility] Daughter updated Admission and Anticipated Discharge Date Admission Date: September 11, 2024 Subjective 09/13/2024 The patient was seen and examined in telemetry unit He has been having some wheezing and minimal shortness of breath at rest Denies any other significant symptoms He wants to be discharged 09/14/2024 The patient was seen and examined in telemetry unit He has been much better and has minimal cough but no shortness of breath Has been saturating normally on room air and awaiting placement 09/15/2024 The patient was seen and examined in telemetry unit He has had episode of anxiety and agitation last night and required 1 dose of Zyprexa Has been feeling much better He wanted to be discharged 09/16/2024 The patient was seen and examined in telemetry unit He has been stable and remains pleasantly confused Does not show any more aggressiveness Review of Systems Review of Systems: All systems reviewed and are unremarkable except as noted below Physical Exam Physical Exam: Lying in bed with minimal distress due to shortness of breath Constitutional: well developed, well nourished, + ill appearing and average body habitus Eyes: PERRL, conjunctivae normal, anicteric sclerae ENMT: external ear and nose normal, oropharynx normal Neck: trachea midline, no thyromegaly Respiratory: + respiratory distress (Minimal distress at rest with wheezing and minimal cough) Auscultation: + diminished lung sounds, + crackles and + wheezes Cardiovascular: Rate/Rhythm: regular rate and regular rhythm; not tachycardic Heart Sounds: normal S1 and normal S2; no murmur Extremities: no edema Gastrointestinal (Abdomen): Inspection/Auscultation: normal bowel sounds; abdomen not distended Percussion/Palpation: abdomen soft; abdomen nontender Neurologic: normal touch/pain/proprioception and moves all extremities; no focal motor deficits Lymphatic: no cervical or axillary lymphadenopathy Results & Data Results & Data Vital Signs (Past 12 Hours) Vital Signs Temp Pulse Resp BP Pulse Ox O2 Del Method 09/16/24 12:30 36.9 C 66 18 149/85 H 93 Room Air 09/16/24 08:00 Room Air 09/16/24 07:32 36.8 C 65 18 139/75 94 Room Air Laboratory Results Urine 09/16/24 Range/Units 06:15 Urine Color Yellow Urine Appearance Clear (Clear) Urine pH 5.5 (4.5-7.5) Ur Specific Gallagher 1.030 (1.000-1.030) Urine Protein 1+ H (Negative) Urine Glucose (UA) Negative (Negative) Medications Administered Current Inpatient Medications Acetaminophen (Acetaminophen 325 Mg Tab) 650 mg PO Q4H PRN PRN Reason: Pain or Fever Stop: 10/11/24 22:02 Last Admin: 09/14/24 17:55 Dose: 650 mg Albuterol (Albuterol Hfa 8 Gm Inhaler) 2 puffs INH Q4 PRN PRN Reason: COPD Stop: 10/11/24 22:02 Albuterol (Albuterol Hfa 8 Gm Inhaler) 2 puffs INH DAILY@0845 [facility] Stop: 10/12/24 08:44 Last Admin: 09/16/24 07:41 Dose: Not Given Albuterol (Albut/Ipratrop 3mg/0.5mg Neb 3 Ml Vial) 3 ml NEB QIDR PRN; Protocol PRN Reason: Shortness Of Breath Or Wheezin Stop: 10/11/24 22:02 Last Admin: 09/15/24 14:49 Dose: 3 ml Amlodipine Besylate (Amlodipine Besylate 5 Mg Tab) 5 mg PO [facility] Stop: 10/12/24 08:59 Last Admin: 09/16/24 09:34 Dose: 5 mg Aspirin (Aspirin 81 Mg Ectab) 81 mg PO [facility] Stop: 10/12/24 08:59 Last Admin: 09/16/24 09:34 Dose: 81 mg Benzonatate (Benzonatate 100 Mg Capsule) 100 mg PO TID [facility] Stop: 10/12/24 08:59 Last Admin: 09/16/24 13:24 Dose: 100 mg Cyclobenzaprine HCl (Cyclobenzaprine Hcl 5 Mg Tab) 5 mg PO HS [facility]IA Stop: 10/11/24 22:02 Last Admin: 09/15/24 19:48 Dose: 5 mg Doxazosin Mesylate (Doxazosin Mesylate 4 Mg Tab) 4 mg PO HS RABIA Stop: 10/11/24 22:02 Last Admin: 09/15/24 19:48 Dose: 4 mg Famotidine (Famotidine 20 Mg Tab) 20 mg PO BID [facility] Stop: 10/11/24 22:02 Last Admin: 09/16/24 09:34 Dose: 20 mg Finasteride (Finasteride 5 Mg Tab) 5 mg PO QAM [facility] Stop: 10/12/24 08:59 Last Admin: 09/16/24 09:35 Dose: 5 mg Fluoxetine HCl (Fluoxetine Hcl 20 Mg Cap) 20 mg PO QAM [facility] Stop: 10/16/24 08:59 Last Admin: 09/16/24 09:33 Dose: 20 mg Fluticasone Furoate (Fluticasone Furoate 100mcg 14 Puffs/Inhaler) 1 puffs INH DAILY [facility] Stop: 10/12/24 08:59 Last Admin: 09/16/24 09:33 Dose: 1 puffs Guaifenesin (Guaifenesin 600 Mg Tabcr) 600 mg PO Q12 [facility] Stop: 10/12/24 08:59 Last Admin: 09/16/24 09:34 Dose: 600 mg Dexamethasone 6 mg/ Syringe 1.5 mls @ 1 mls/min IV DAILY [facility] Stop: 10/11/24 19:59 Last Admin: 09/16/24 09:32 Dose: 1 mls/min Multivitamins (Multivitamin Tab) 1 tab PO QAM [facility] Stop: 10/12/24 08:59 Last Admin: 09/16/24 09:35 Dose: 1 tab Olanzapine (Olanzapine 10 Mg/2.1 Ml Sdv) 2.5 mg IM Q4H PRN PRN Reason: Agitation Stop: 10/14/24 22:48 Ondansetron HCl (Ondansetron Inj 2 Mg/Ml 2 Ml Vial) 4 mg IV Q6H PRN PRN Reason: Nausea Stop: 10/11/24 22:02 Oseltamivir Phosphate (Oseltamivir Phosphate Susp 30 Mg/5 Ml Udp) 30 mg PO BID [facility]; Protocol Stop: 09/17/24 08:59 Last Admin: 09/16/24 09:32 Dose: 30 mg Pantoprazole Sodium (Pantoprazole 40 Mg Tab) 40 mg PO QAM [facility] Stop: 10/12/24 08:59 Last Admin: 09/16/24 09:34 Dose: 40 mg Polyethylene Glycol (Polyethylene (Miralax) 17 Gm Pack) 17 gm PO DAILY PRN PRN Reason: Constipation Stop: 10/11/24 22:02 Last Admin: 09/16/24 13:24 Dose: 17 gm Umeclidinium/Vilanterol (Umeclidinium/Vilanterol 62.5/25mcg 7 Puffs/Inhaler) 1 puffs INH DAILY [facility] Stop: 10/12/24 08:59 Last Admin: 09/16/24 09:33 Dose: 1 puffs
[2024-09-17] MEDS: OLANZapine 10 MG/2.1 ML SDV IM PRN (04:13)
[2024-09-17] MEDS: OLANZapine 10 MG/2.1 ML SDV IM STA (06:11)
[2024-09-17 08:36] LABS: Creatinine Clr Calc Pharmacy 35.6 ml/min
--- NOTE | 2024-09-17 13:55 | Hospitalist Progress Note ---
Date of Service September 17, 2024 Assessment & Plan (1) Acute metabolic encephalopathy: (2) Acute on chronic hypoxic respiratory failure: (3) Influenza A: (4) COVID-19: Plan: This is an 88-year-old male who is a resident at [facility] with PMH of COPD with nocturnal hypoxemia on 2 L nasal cannula O2 at bedtime, CAD s/p stent, history of AAA s/p repair 2019 [place] [facility] [place], hypertension, hyperlipidemia, R renal artery stenosis, anemia, dementia and other medical problems listed below who was sent in for SOB and lethargy and was found to have acute on chronic hypoxic respiratory failure in setting of COVID- 19 and influenza A infections. Hypoxic in mid 80s at the facility but improved to 96% on 4 L nasal cannula upon arrival (baseline O2 requirement : 2L NC O2 HS) No leukocytosis, VBG pH within normal limits, procalcitonin neg SARSCov2, influenza A both positive on PCR Isolation precautions Continue Tamiflu renally dosed at 30mg BID x 5 day course Decadron 6mg IV daily, antitussives Remdesivir contraindicated due to patient's intermittent bradycardia DuoNebs Q4 HR as needed shortness of breath or wheezing Continue home inhalers , incentive spirometer. Remains medically stable and requiring 2 L to maintain saturation No other significant symptoms Will have PT OT evaluation and to get stable O2 saturation Remains medically stable without any respiratory symptoms No respiratory symptoms and saturating normally on room air Minimal wheezing but has been saturating normally on room air Was getting more agitated during physical therapy and was unable to follow-up instructions Remains medically stable with more wheezing but no shortness of breath at rest Nebulized bronchodilator will be given scheduled doses at 4 times a day and added with nebulized steroid Inhalers have been discontinued as he cannot take it/use it Acute delirium Anxiety and agitation with history of dementia Required 1 dose of IM Zyprexa last night and has been having one-to-one sitter Will increase his Prozac from 10 to 20 mg and observe while he is in the hospital Regular diet was prescribed as per the daughter Pleasantly confused no acute delirium His steroid has been discontinued and is still having acute delirium A small dose of Seroquel at 12.5 mg added at night (5) Lower extremity edema: Plan: Noted 3 days ago, took 40mg lasix x 1 yesterday Appears dry on exam in setting of infxn as above - hold off on further lasix for now Echo with EF of 55 to 60%, normal LV systolic function. BLE Doppler negative for DVT. Continue to monitor for volume status. Bilateral leg edema has improved (6) S/P AAA repair: Plan: Known endoleak s/p repair of abdominal aortic aneurysm with Cook Zenith stent graft by Dr. Townsend on 01/26/2019 for 5.6 cm AAA Family elected for no further surveillance of the AAA and no treatment of the endoleak No chemical VTE (7) COPD (chronic obstructive pulmonary disease): Plan: Dexamethasone, PRN Duonebs and home inhalers as above Minimal shortness of breath at rest with wheezing No exacerbation Has been getting as needed nebulizer treatment for wheezing (8) Dementia: Plan: Talkative and alert to self, family at baseline Seems to be at his baseline Other chronic conditions: HTN : Continue amlodpine daily BPH : Continue doxazosin, finasteride Mood disorder : Continue SSRI GERD: Continue protonix CKD III: Cr 1.69 (bl ~ 1.6-1.7). Monitor with daily BMP DVT Ppx: SCDs Code status: DNR/DNI per discussion with family PCP: Sang Dispo: admitted to [facility] tele Daughter updated Admission and Anticipated Discharge Date Admission Date: September 11, 2024 Subjective 09/13/2024 The patient was seen and examined in telemetry unit He has been having some wheezing and minimal shortness of breath at rest Denies any other significant symptoms He wants to be discharged 09/14/2024 The patient was seen and examined in telemetry unit He has been much better and has minimal cough but no shortness of breath Has been saturating normally on room air and awaiting placement 09/15/2024 The patient was seen and examined in telemetry unit He has had episode of anxiety and agitation last night and required 1 dose of Zyprexa Has been feeling much better He wanted to be discharged 09/16/2024 The patient was seen and examined in telemetry unit He has been stable and remains pleasantly confused Does not show any more aggressiveness 09/17/2024 The patient was seen and examined in telemetry unit in presence of the daughter He was agitated last night and quired 2 doses of Zyprexa Has been sleeping this morning with audible wheezing without any desaturation Review of Systems Review of Systems: Unobtainable due to cognitive status Physical Exam Physical Exam: Lying in bed with minimal distress due to shortness of breath Constitutional: well developed, well nourished, + ill appearing and average body habitus Eyes: PERRL, conjunctivae normal, anicteric sclerae ENMT: external ear and nose normal, oropharynx normal Neck: trachea midline, no thyromegaly Respiratory: + respiratory distress (Minimal distress at rest with wheezing and minimal cough) Auscultation: + diminished lung sounds, + crackles and + wheezes Cardiovascular: Rate/Rhythm: regular rate and regular rhythm; not tachycardic Heart Sounds: normal S1 and normal S2; no murmur Extremities: no edema Gastrointestinal (Abdomen): Inspection/Auscultation: normal bowel sounds; abdomen not distended Percussion/Palpation: abdomen soft; abdomen nontender Neurologic: normal touch/pain/proprioception and moves all extremities; no focal motor deficits Lymphatic: no cervical or axillary lymphadenopathy Results & Data Results & Data Vital Signs (Past 12 Hours) Vital Signs Temp Pulse Pulse Resp BP Pulse Ox O2 Del Method 09/17/24 12:03 62 09/17/24 10:49 36.7 C 55 L 16 147/86 H 93 Room Air 09/17/24 08:43 Room Air 09/17/24 08:04 72 18 94 Room Air 09/17/24 07:00 36.8 C 69 18 156/90 H 92 Room Air 09/17/24 02:40 36.3 C L 53 L 20 170/82 H 96 Room Air Laboratory Results [facility] 09/17/24 07:43 Creatinine 1.36 Medications Administered Current Inpatient Medications Acetaminophen (Acetaminophen 325 Mg Tab) 650 mg PO Q4H PRN PRN Reason: Pain or Fever Stop: 10/11/24 22:02 Last Admin: 09/14/24 17:55 Dose: 650 mg Albuterol (Albut/Ipratrop 3mg/0.5mg Neb 3 Ml Vial) 3 ml NEB QIDR [facility]; Protocol Stop: 10/17/24 14:59 Amlodipine Besylate (Amlodipine Besylate 5 Mg Tab) 5 mg PO [facility] Stop: 10/12/24 08:59 Last Admin: 09/17/24 08:52 Dose: 5 mg Aspirin (Aspirin 81 Mg Ectab) 81 mg PO [facility] Stop: 10/12/24 08:59 Last Admin: 09/17/24 08:52 Dose: 81 mg Benzonatate (Benzonatate 100 Mg Capsule) 100 mg PO TID [facility] Stop: 10/12/24 08:59 Last Admin: 09/17/24 08:52 Dose: 100 mg Budesonide (Budesonide 0.5 Mg/2 Ml Vial (Pulmicort)) 0.5 mg NEB BIDR [facility] Stop: 10/17/24 18:59 Cyclobenzaprine HCl (Cyclobenzaprine Hcl 5 Mg Tab) 5 mg PO HS [facility] Stop: 10/11/24 22:02 Last Admin: 09/16/24 20:08 Dose: 5 mg Doxazosin Mesylate (Doxazosin Mesylate 4 Mg Tab) 4 mg PO [facility] Stop: 10/11/24 22:02 Last Admin: 09/16/24 20:04 Dose: 4 mg Famotidine (Famotidine 20 Mg Tab) 20 mg PO BID [facility] Stop: 10/11/24 22:02 Last Admin: 09/17/24 08:53 Dose: 20 mg [facility]asteride ([facility] 5 Mg Tab) [facility] Stop: 10/12/24 08:59 Last Admin: 09/17/24 08:51 Dose: 5 mg Fluoxetine HCl (Fluoxetine Hcl 20 Mg Cap) 20 mg PO [facility] Stop: 10/16/24 08:59 Last Admin: 09/17/24 08:53 Dose: 20 mg Guaifenesin (Guaifenesin 600 Mg Tabcr) 600 mg PO Q12 [facility] Stop: 10/12/24 08:59 Last Admin: 09/17/24 08:53 Dose: 600 mg Multivitamins (Multivitamin Tab) 1 tab PO [facility] Stop: 10/12/24 08:59 Last Admin: 09/17/24 08:53 Dose: 1 tab Olanzapine (Olanzapine 10 Mg/2.1 Ml Sdv) 2.5 mg IM Q4H PRN PRN Reason: Agitation Stop: 10/14/24 22:48 Last Admin: 09/17/24 04:13 Dose: 2.5 mg Ondansetron HCl (Ondansetron Inj 2 Mg/Ml 2 Ml Vial) 4 mg IV Q6H PRN PRN Reason: Nausea Stop: 10/11/24 22:02 Pantoprazole Sodium (Pantoprazole 40 Mg Tab) 40 mg PO QAM [facility] Stop: 10/12/24 08:59 Last Admin: 09/17/24 08:53 Dose: 40 mg Polyethylene Glycol (Polyethylene (Miralax) 17 Gm Pack) 17 gm PO DAILY PRN PRN Reason: Constipation Stop: 10/11/24 22:02 Last Admin: 09/16/24 13:24 Dose: 17 gm Quetiapine Fumarate (Quetiapine Fumarate 25 Mg Tablet) 12.5 mg PO HS [facility] Stop: 10/17/24 20:59
[2024-09-17] MEDS: ALBUT/IPRATROP 3MG/0.5MG NEB 3 ML VIAL NEB SCH ×2 (14:50→19:33)
[2024-09-17] MEDS ORDERED: BUDESONIDE 0.5 MG/2 ML VIAL (PULMICORT) NEB SCH (19:00)
[2024-09-17] MEDS: BUDESONIDE 0.5 MG/2 ML VIAL (PULMICORT) NEB SCH (19:32)
[2024-09-17] MEDS: FORMOTEROL 20 MCG/2 ML VIAL NEB SCH (19:32)
[2024-09-17] MEDS: QUEtiapine FUMARATE 25 MG TABLET PO SCH (20:45)
[2024-09-18] MEDS: FORMOTEROL 20 MCG/2 ML VIAL NEB SCH (03:53)
[2024-09-18 07:57] LABS: Basophils # (auto) 0.02 K/uL (0.00-0.20); Basophils % (auto) 0.2 %; Eosinophils # (auto) 0.11 K/uL (0.00-0.50); Eosinophils % (auto) 1.2 %; Hematocrit (blood only) 38.6 % (42.0-52.0); Immature Granulocytes # (auto) 0.06 K/uL (0.01-0.20); Immature Granulocytes % (auto) 0.7 %; Lymphocytes # (auto) 2.34 K/uL (1.20-3.40); Lymphocytes % (auto) 26.4 %; Mean Corpuscular Hemoglobin 30.3 pg (25.0-34.0); Mean Corpuscular Hgb Conc 33.7 g/dL (32.0-36.0); Mean Platelet Volume 10.9 fL (9.4-12.4); Monocytes # (auto) 0.78 K/uL (0.11-0.59); Monocytes % (auto) 8.8 %; Neutrophils # (auto) 5.54 K/uL (1.40-6.50); Neutrophils % (auto) 62.7 %; Platelet Count 197 K/uL (130-400); RDW Coefficient of Variation 13.2 % (11.5-14.5); RDW Standard Deviation 43.2 fL (36.4-46.3); Red Blood Count 4.29 M/uL (4.70-6.10); White Blood Count 8.85 K/ul (4.8-10.8)
[2024-09-18 08:07] LABS: BUN Creatinine Ratio 28.5 (10-20); Calcium 8.1 mg/dl (8.6-10.3); Creatinine Clr Calc Pharmacy 35.4 ml/min; Potassium 3.9 mmol/L (3.5-5.1)
--- NOTE | 2024-09-18 13:20 | Hospitalist Progress Note ---
Date of Service September 18, 2024 Assessment & Plan (1) Acute metabolic encephalopathy: (2) Acute on chronic hypoxic respiratory failure: (3) Influenza A: (4) COVID-19: Plan: This is an 88-year-old male who is a resident at [facility] with PMH of COPD with nocturnal hypoxemia on 2 L nasal cannula O2 at bedtime, CAD s/p stent, history of AAA s/p repair 2019 following with [facility] [place] vascular [place], hypertension, hyperlipidemia, R renal artery stenosis, anemia, dementia and other medical problems listed below who was sent in for SOB and lethargy and was found to have acute on chronic hypoxic respiratory failure in setting of COVID- 19 and influenza A infections. Hypoxic in mid 80s at the facility but improved to 96% on 4 L nasal cannula upon arrival (baseline O2 requirement : 2L NC O2 HS) No leukocytosis, VBG pH within normal limits, procalcitonin neg SARSCov2, influenza A both positive on PCR Isolation precautions Continue Tamiflu renally dosed at 30mg BID x 5 day course Decadron 6mg IV daily, antitussives Remdesivir contraindicated due to patient's intermittent bradycardia DuoNebs Q4 HR as needed shortness of breath or wheezing Continue home inhalers , incentive spirometer. Remains medically stable and requiring 2 L to maintain saturation No other significant symptoms Will have PT OT evaluation and to get stable O2 saturation Remains medically stable without any respiratory symptoms No respiratory symptoms and saturating normally on room air Minimal wheezing but has been saturating normally on room air Was getting more agitated during physical therapy and was unable to follow-up instructions Remains medically stable with more wheezing but no shortness of breath at rest Nebulized bronchodilator will be given scheduled doses at 4 times a day and added with nebulized steroid Inhalers have been discontinued as he cannot take it/use it He has been getting albuterol nebulized twice a day and Perforomist nebulized twice a day Wheezing is better and he has been saturating normally on room air Acute delirium Anxiety and agitation with history of dementia Required 1 dose of IM Zyprexa last night and has been having one-to-one sitter Will increase his Prozac from 10 to 20 mg and observe while he is in the hospital Regular diet was prescribed as per the daughter Pleasantly confused no acute delirium His steroid has been discontinued and is still having acute delirium A small dose of Seroquel at 12.5 mg added at night Remains pleasantly confused (5) Lower extremity edema: Plan: Noted 3 days ago, took 40mg lasix x 1 yesterday Appears dry on exam in setting of infxn as above - hold off on further lasix for now Echo with EF of 55 to 60%, normal LV systolic function. BLE Doppler negative for DVT. Continue to monitor for volume status. Bilateral leg edema has improved (6) S/P AAA repair: Plan: Known endoleak s/p repair of abdominal aortic aneurysm with Cook Zenith stent graft by Dr. Townsend on 01/26/2019 for 5.6 cm AAA Family elected for no further surveillance of the AAA and no treatment of the endoleak No chemical VTE (7) COPD (chronic obstructive pulmonary disease): Plan: Dexamethasone, PRN Duonebs and home inhalers as above Minimal shortness of breath at rest with wheezing No exacerbation Has been getting as needed nebulizer treatment for wheezing (8) Dementia: Plan: Talkative and alert to self, family at baseline Seems to be at his baseline Other chronic conditions: HTN : Continue amlodpine daily BPH : Continue doxazosin, finasteride Mood disorder : Continue SSRI GERD: Continue protonix CKD III: Cr 1.69 (bl ~ 1.6-1.7). Monitor with daily BMP DVT Ppx: SCDs Code status: DNR/DNI per discussion with family PCP: Sang Dispo: [facility] tele Daughter updated Admission and Anticipated Discharge Date Admission Date: September 11, 2024 Subjective 09/13/2024 The patient was seen and examined in telemetry unit He has been having some wheezing and minimal shortness of breath at rest Denies any other significant symptoms He wants to be discharged 09/14/2024 The patient was seen and examined in telemetry unit He has been much better and has minimal cough but no shortness of breath Has been saturating normally on room air and awaiting placement 09/15/2024 The patient was seen and examined in telemetry unit He has had episode of anxiety and agitation last night and required 1 dose of Zyprexa Has been feeling much better He wanted to be discharged 09/16/2024 The patient was seen and examined in telemetry unit He has been stable and remains pleasantly confused Does not show any more aggressiveness 09/17/2024 The patient was seen and examined in telemetry unit in presence of the daughter He was agitated last night and quired 2 doses of Zyprexa Has been sleeping this morning with audible wheezing without any desaturation 09/18/2024 The patient was seen and examined in telemetry unit He has been stable today and has been listening for over he was told Remains pleasantly confused fused Has been eating and drinking reasonably Review of Systems Review of Systems: All systems reviewed and are unremarkable except as noted below Physical Exam Physical Exam: Lying in bed with minimal distress due to shortness of breath Constitutional: well developed, well nourished, + ill appearing and average body habitus Eyes: PERRL, conjunctivae normal, anicteric sclerae ENMT: external ear and nose normal, oropharynx normal Neck: trachea midline, no thyromegaly Respiratory: + respiratory distress (Minimal distress at rest with wheezing and minimal cough) Auscultation: + diminished lung sounds, + crackles and + wheezes Cardiovascular: Rate/Rhythm: regular rate and regular rhythm; not tachycardic Heart Sounds: normal S1 and normal S2; no murmur Extremities: no edema Gastrointestinal (Abdomen): Inspection/Auscultation: normal bowel sounds; abdomen not distended Percussion/Palpation: abdomen soft; abdomen nontender Neurologic: normal touch/pain/proprioception and moves all extremities; no focal motor deficits Lymphatic: no cervical or axillary lymphadenopathy Results & Data Results & Data Vital Signs (Past 12 Hours) Vital Signs Temp Pulse Pulse Resp BP Pulse Ox O2 Del Method 09/18/24 12:00 36.5 C 74 20 130/74 96 Room Air 09/18/24 09:30 67 09/18/24 09:06 Room Air 09/18/24 08:06 64 18 96 Room Air 09/18/24 07:36 36.6 C 60 18 128/60 95 Room Air 09/18/24 03:31 36.6 C 55 L 17 134/70 93 Room Air Laboratory Results Short CBC 09/18/24 Range/Units 07:17 WBC 8.85 (4.8-10.8) K/ul Hgb 13.0 L (14.0-18.0) g/dl Hct 38.6 L (42.0-52.0) % Plt Count 197 (130-400) K/uL BMP 09/18/24 07:17 Sodium 139 Potassium 3.9 Chloride 108 H Carbon Dioxide 26 BUN 39 H Creatinine 1.37 Glucose 92 Calcium 8.1 L Medications Administered Current Inpatient Medications Acetaminophen (Acetaminophen 325 Mg Tab) 650 mg PO Q4H PRN PRN Reason: Pain or Fever Stop: 10/11/24 22:02 Last Admin: 09/14/24 17:55 Dose: 650 mg Albuterol (Albut/Ipratrop 3mg/0.5mg Neb 3 Ml Vial) 3 ml NEB BID [facility]; Protocol Stop: 10/17/24 20:59 Last Admin: 09/18/24 08:06 Dose: Not Given Amlodipine Besylate (A[facility]odipine [facility]ylate 5 Mg Tab) [facility] [place]: 10/12/24 08:59 Last Admin: 09/18/24 08:58 Dose: 5 mg Aspirin (Aspirin 81 Mg Ectab) [facility] [place]: 10/12/24 08:59 Last Admin: 09/18/24 08:58 Dose: 81 mg Benzonatate (Benzonatate 100 Mg Capsule) 100 mg PO TID [facility] Stop: 10/12/24 08:59 Last Admin: 09/18/24 08:55 Dose: 100 mg Budesonide (Budesonide 0.5 Mg/2 Ml Vial (Pulmicort)) 0.5 mg NEB BIDR [facility] Stop: 10/17/24 18:59 Last Admin: 09/18/24 08:05 Dose: 0.5 mg Cyclobenzaprine HCl (Cyclobenzaprine Hcl 5 Mg Tab) 5 mg PO [facility] Stop: 10/11/24 22:02 Last Admin: 09/17/24 20:45 Dose: 5 mg Doxazosin Mesylate (Doxazosin Mesylate 4 Mg Tab) 4 mg PO [facility] Stop: 10/11/24 22:02 Last Admin: 09/17/24 20:45 Dose: 4 mg Famotidine (Famotidine 20 Mg Tab) 20 mg PO BID [facility] Stop: 10/11/24 22:02 Last Admin: 09/18/24 08:58 Dose: 20 mg Finasteride (Finasteride 5 Mg Tab) [facility]: 10/12/24 08:59 Last Admin: 09/18/24 08:57 Dose: 5 mg Fluoxetine HCl (Fluoxetine Hcl 20 Mg Cap) 20 mg PO [facility] Stop: 10/16/24 08:59 Last Admin: 09/18/24 08:57 Dose: 20 mg Formoterol Fumarate (Formoterol 20 Mcg/2 Ml Vial) 20 mcg NEB BIDR [facility] Stop: 10/17/24 18:59 Last Admin: 09/18/24 08:05 Dose: 20 mcg Guaifenesin (Guaifenesin 600 Mg Tabcr) 600 mg PO Q12 [facility] Stop: 10/12/24 08:59 Last Admin: 09/18/24 08:58 Dose: 600 mg Multivitamins (Multivitamin Tab) 1 tab PO QAM [facility] Stop: 10/12/24 08:59 Last Admin: 09/18/24 08:57 Dose: 1 tab Olanzapine (Olanzapine 10 Mg/2.1 Ml Sdv) 2.5 mg IM Q4H PRN PRN Reason: Agitation Stop: 10/14/24 22:48 Last Admin: 09/17/24 04:13 Dose: 2.5 mg Ondansetron HCl (Ondansetron Inj 2 Mg/Ml 2 Ml Vial) 4 mg IV Q6H PRN PRN Reason: Nausea Stop: 10/11/24 22:02 Pantoprazole Sodium (Pantoprazole 40 Mg Tab) [facility] [place]: 10/12/24 08:59 Last Admin: 09/18/24 08:58 Dose: 40 mg Polyethylene Glycol (Polyethylene (Miralax) 17 Gm Pack) 17 gm PO DAILY PRN PRN Reason: Constipation Stop: 10/11/24 22:02 Last Admin: 09/16/24 13:24 Dose: 17 gm Quetiapine Fumarate (Quetiapine Fumarate 25 Mg Tablet) 12.5 mg PO HS [facility] Stop: 10/17/24 20:59 Last Admin: 09/17/24 20:45 Dose: 12.5 mg
--- NOTE | 2024-09-19 13:15 | Hospitalist Progress Note ---
Date of Service September 19, 2024 Assessment & Plan (1) Acute metabolic encephalopathy: (2) Acute on chronic hypoxic respiratory failure: (3) Influenza A: (4) COVID-19: Plan: This is an 88-year-old male who is a resident at [facility] with PMH of COPD with nocturnal hypoxemia on 2 L nasal cannula O2 at bedtime, CAD s/p stent, history of AAA s/p repair 2019 [place] [facility] [place], hypertension, hyperlipidemia, R renal artery stenosis, anemia, dementia and other medical problems listed below who was sent in for SOB and lethargy and was found to have acute on chronic hypoxic respiratory failure in setting of COVID- 19 and influenza A infections. Hypoxic in mid 80s at the facility but improved to 96% on 4 L nasal cannula upon arrival (baseline O2 requirement : 2L NC O2 HS) No leukocytosis, VBG pH within normal limits, procalcitonin neg SARSCov2, influenza A both positive on PCR Isolation precautions Continue Tamiflu renally dosed at 30mg BID x 5 day course Decadron 6mg IV daily, antitussives Remdesivir contraindicated due to patient's intermittent bradycardia DuoNebs Q4 HR as needed shortness of breath or wheezing Continue home inhalers , incentive spirometer. Remains medically stable and requiring 2 L to maintain saturation No other significant symptoms Will have PT OT evaluation and to get stable O2 saturation Remains medically stable without any respiratory symptoms No respiratory symptoms and saturating normally on room air Minimal wheezing but has been saturating normally on room air Was getting more agitated during physical therapy and was unable to follow-up instructions Remains medically stable with more wheezing but no shortness of breath at rest Nebulized bronchodilator will be given scheduled doses at 4 times a day and added with nebulized steroid Inhalers have been discontinued as he cannot take it/use it He has been getting albuterol nebulized twice a day and Perforomist nebulized twice a day Wheezing is better and he has been saturating normally on room air No respiratory symptoms at rest and today's the day 8 of COVID isolation Acute delirium Anxiety and agitation with history of dementia Required 1 dose of IM Zyprexa last night and has been having one-to-one sitter Will increase his Prozac from 10 to 20 mg and observe while he is in the hospital Regular diet was prescribed as per the daughter Pleasantly confused no acute delirium His steroid has been discontinued and is still having acute delirium A small dose of Seroquel at 12.5 mg added at night Condition is worse today and remains delirious Seroquel will be discontinued Discussed with the family members and a palliative care consultation was placed to guide management from here (5) Lower extremity edema: Plan: Noted 3 days ago, took 40mg lasix x 1 yesterday Appears dry on exam in setting of infxn as above - hold off on further lasix for now Echo with EF of 55 to 60%, normal LV systolic function. BLE Doppler negative for DVT. Continue to monitor for volume status. Bilateral leg edema has improved (6) S/P AAA repair: Plan: Known endoleak s/p repair of abdominal aortic aneurysm with Micromidas ZenH-umus stent graft by Dr. Townsend on 01/26/2019 for 5.6 cm AAA Family elected for no further surveillance of the AAA and no treatment of the endoleak No chemical VTE (7) COPD (chronic obstructive pulmonary disease): Plan: Dexamethasone, PRN Duonebs and home inhalers as above Minimal shortness of breath at rest with wheezing No exacerbation Has been getting as needed nebulizer treatment for wheezing (8) Dementia: Plan: Talkative and alert to self, family at baseline Seems to be at his baseline Other chronic conditions: HTN : Continue amlodpine daily BPH : Continue doxazosin, finasteride Mood disorder : Continue SSRI GERD: Continue protonix CKD III: Cr 1.69 (bl ~ 1.6-1.7). Monitor with daily BMP DVT Ppx: SCDs Code status: DNR/DNI per discussion with family PCP: Sang Dispo: admitted to [place] [facility] tele Daughter and other family members were updated Palliative care consultation is placed Admission and Anticipated Discharge Date Admission Date: September 11, 2024 Subjective 09/13/2024 The patient was seen and examined in telemetry unit He has been having some wheezing and minimal shortness of breath at rest Denies any other significant symptoms He wants to be discharged 09/14/2024 The patient was seen and examined in telemetry unit He has been much better and has minimal cough but no shortness of breath Has been saturating normally on room air and awaiting placement 09/15/2024 The patient was seen and examined in telemetry unit He has had episode of anxiety and agitation last night and required 1 dose of Zyprexa Has been feeling much better He wanted to be discharged 09/16/2024 The patient was seen and examined in telemetry unit He has been stable and remains pleasantly confused Does not show any more aggressiveness 09/17/2024 The patient was seen and examined in telemetry unit in presence of the daughter He was agitated last night and quired 2 doses of Zyprexa Has been sleeping this morning with audible wheezing without any desaturation 09/18/2024 The patient was seen and examined in telemetry unit He has been stable today and has been listening for over he was told Remains pleasantly confused fused Has been eating and drinking reasonably 09/19/2024 The patient was seen and examined in telemetry unit in presence of the family members His condition has gone worse with acute confusion and generalized weakness He is not making any meaningful sounds and/or conversation Does not have any acute distress otherwise Offered palliative care intervention and the family members are okay with that Review of Systems Review of Systems: Unobtainable due to cognitive status Physical Exam Physical Exam: Lying in bed without any acute distress but remains very weak and lethargic Constitutional: well developed, well nourished, + ill appearing and average body habitus Eyes: PERRL, conjunctivae normal, anicteric sclerae ENMT: external ear and nose normal, oropharynx normal Neck: trachea midline, no thyromegaly Respiratory: + respiratory distress (Minimal distress at rest with wheezing and minimal cough) Auscultation: + diminished lung sounds, + crackles and + wheezes Cardiovascular: Rate/Rhythm: regular rate and regular rhythm; not tachycardic Heart Sounds: normal S1 and normal S2; no murmur Extremities: no edema Gastrointestinal (Abdomen): Inspection/Auscultation: normal bowel sounds; abdomen not distended Percussion/Palpation: abdomen soft; abdomen nontender Neurologic: moves all extremities has been moving extremities. alert and awake but no meaningful conversation Lymphatic: no cervical or axillary lymphadenopathy Results & Data Results & Data Vital Signs (Past 12 Hours) Vital Signs Temp Pulse Pulse Resp BP Pulse Ox O2 Del Method 09/19/24 11:10 37.1 C 63 20 156/76 H 91 Room Air 09/19/24 08:30 78 09/19/24 08:30 Room Air 09/19/24 07:58 36.8 C 65 18 129/72 94 Room Air 09/19/24 07:47 72 18 90 Room Air 09/19/24 03:22 36.8 C 72 18 118/80 93 Room Air Medications Administered Current Inpatient Medications Acetaminophen (Acetaminophen 325 Mg Tab) 650 mg PO Q4H PRN PRN Reason: Pain or Fever Stop: 10/11/24 22:02 Last Admin: 09/19/24 12:07 Dose: 650 mg Albuterol (Albut/Ipratrop 3mg/0.5mg Neb 3 Ml Vial) 3 ml NEB BID [facility]; Protocol Stop: 10/17/24 20:59 Last Admin: 09/19/24 07:58 Dose: Not Given Amlodipine Besylate (Amlodipine Besylate 5 Mg Tab) [facility] [place] Stop: 10/12/24 08:59 Last Admin: 09/19/24 09:24 Dose: 5 mg Aspirin (Aspirin 81 Mg Ectab) [facility] [place] Stop: 10/12/24 08:59 Last Admin: 09/19/24 09:30 Dose: 81 mg Benzonatate (Benzonatate 100 Mg Capsule) 100 mg PO TID [facility] Stop: 10/12/24 08:59 Last Admin: 09/19/24 09:24 Dose: 100 mg Budesonide (Budesonide 0.5 Mg/2 Ml Vial (Pulmicort)) 0.5 mg NEB BIDR [facility] Stop: 10/17/24 18:59 Last Admin: 09/19/24 07:47 Dose: 0.5 mg Cyclobenzaprine HCl (Cyclobenzaprine Hcl 5 Mg Tab) 5 mg PO [facility] Stop: 10/11/24 22:02 Last Admin: 09/18/24 21:58 Dose: 5 mg Doxazosin Mesylate (Doxazosin Mesylate 4 Mg Tab) 4 mg PO [facility] Stop: 10/11/24 22:02 Last Admin: 09/18/24 21:59 Dose: 4 mg Famotidine (Famotidine 20 Mg Tab) 20 mg PO BID [facility] Stop: 10/11/24 22:02 Last Admin: 09/19/24 09:30 Dose: 20 mg Finasteride (Finasteride 5 Mg Tab) [facility] [place] Stop: 10/12/24 08:59 Last Admin: 09/19/24 09:30 Dose: 5 mg Fluoxetine HCl (Fluoxetine Hcl 20 Mg Cap) 20 mg PO [facility] Stop: 10/16/24 08:59 Last Admin: 09/19/24 09:25 Dose: 20 mg Formoterol Fumarate (Formoterol 20 Mcg/2 Ml Vial) 20 mcg NEB BIDR [facility] Stop: 10/17/24 18:59 Last Admin: 09/19/24 07:47 Dose: 20 mcg Guaifenesin (Guaifenesin 600 Mg Tabcr) 600 mg PO Q12 [facility] Stop: 10/12/24 08:59 Last Admin: 09/19/24 09:25 Dose: 600 mg Multivitamins (Multivitamin Tab) 1 tab PO QAM [facility] Stop: 10/12/24 08:59 Last Admin: 09/19/24 09:20 Dose: 1 tab Olanzapine (Olanzapine 10 Mg/2.1 Ml Sdv) 2.5 mg IM Q4H PRN PRN Reason: Agitation Stop: 10/14/24 22:48 Last Admin: 09/17/24 04:13 Dose: 2.5 mg Ondansetron HCl (Ondansetron Inj 2 Mg/Ml 2 Ml Vial) 4 mg IV Q6H PRN PRN Reason: Nausea Stop: 10/11/24 22:02 Pantoprazole Sodium (Pantoprazole 40 Mg Tab) [facility] [place] Stop: 10/12/24 08:59 Last Admin: 09/19/24 09:30 Dose: 40 mg Polyethylene Glycol (Polyethylene (Miralax) 17 Gm Pack) 17 gm PO DAILY PRN PRN Reason: Constipation Stop: 10/11/24 22:02 Last Admin: 09/16/24 13:24 Dose: 17 gm
[2024-09-19] MEDS ORDERED: GLYCOPYRROLATE 0.2 MG/ML VIAL IV PRN (14:11)
[2024-09-19] MEDS ORDERED: ONDANSETRON INJ 2 MG/ML 2 ML VIAL IV PRN (14:11)
[2024-09-19] MEDS ORDERED: LORazepam 2 MG/1 ML VIAL IV PRN (14:11)
--- NOTE | 2024-09-19 14:20 | Palliative Family Discussion ---
Date of Service September 19, 2024 Patient Directed Conference Time of Meetin-220pm Participants: Vandana Tineo DNP Patient participation: lacks capacity Patient Support System dtr mPOA and son in law at bedside and then family meeting room] Other Healthcare Provider Participation: None Meeting Location: family meeting room Advanced Directive available: yes If yes, descriptors: DNR/DNI The patient's surrogate medical decision maker participated: yes dtr is mPOA An ACP meeting was held with the family of ROHIT SANCHEZ. This meeting was necessary for determining the appropriate course of treatment. Topics of Discussion Topics of Discussion: 1. I met with Marija family (daughter and son in law). We discussed We spent over 30 minutes discussing the progressive nature of dementia, which is an incurable and irreversible, and can include progressive/worsening memory loss, confusion, language difficulties/lack of comprehension skills/loss of verbal skills eventually, mood changes, impaired judgment, trouble with motor skills/coordination/balance issues, visual and spatial problems, hallucinations, and personality changes. The rate of progression in dementia can vary widely from person to person. Factors such as the types of dementia involved, overall health, and genetics can influence the speed of progression. Some individuals experience a more gradual decline, while others may progress more rapidly through the stages. We discussed and differentiated dementia from delirium and helped family understand that they can co-exist. I reviewed Dementia is a terminal illness. Aggressive medical treatment for residents with advanced dementia is often inappropriate for medical reasons, has a low rate of success, and can have negative outcomes that hasten functional decline and . ( [employer] [employer] Ethics Committee and Clinical Practice and Models of Care Committee. J Am Geriatr Soc. 2014 Apr;62(8):1590-3 and Landon SL, Natalia JM, Rivera SC, Mor V. A national study of the location of for older persons with dementia. J Am Geriatr Soc 2005; 53(2):299-305.) Older adults with dementia frequently receive acute care in their last year of life although Hospice care was more common for home/[facility] residents. Overall time in hospice remains short due to the underutilization of the hospice benefit for terminal dementia (Devora MM, Chely JM, Ryan KM, Raji DE, Lety PY. Dementia Care in the Last Year of Life: Experiences in a Community Practice and in Senior Living Facilities. J Palliat Care. 2022;38(2):135-142. doi:10.1177/[id number]) Home Hospice is a valuable option for terminal dementia who desire to have peaceful EOL at home. Home hospice care for advanced dementia can improve symptom management and caregiver satisfaction, while decreasing caregiver burden, preventing hospitalizations and discontinuing unnecessary medications (Toshia GREENE, Segundo R, Danish G, et al. Home hospice for older people with advanced dementia: a company pilot project [published correction appears in Isr J Health Policy Res. 2019 Mar 14;8(1):56]. Isr J Health Policy Res. 2019;8(1):42. Published 2018January 17. doi:10.1186/n23844-990-6064-b) If the plan if for SNF placement, I recommend hospice at SNF: Hospice is a valuable service for persons with advanced dementia, particularly in management of pain, continuous involvement of the primary physician, and avoidance of hospitalization. Social support provided to caregivers is also important given their high levels of depressive symptoms and anxiety. The goal of care for residents with advanced dementia is primarily maintenance of function and patient should not be transferred to an acute care setting because hospitalization results in decline of functional abilities that do not recover after discharge back into intermediate. If this is desired, then Care Mgt follow up is needed to determine if pt is eligible for hospice at SNF/deferred to CM and primary team. He is now comfort care. They would like dc to intermediate with hospice, prefer [facility] but do not want [facility]. I would like a [facility] eval with [facility].. I am writing [employer] rx. I am stopping non essentials and PO meds, he is not taking them well Other Content of Meetin. Opportunity given for participants to speak and ask questions. 2. Participants were assured of attention to patient comfort. 3. Reassurance provided. 4. Support was provided for informed, good-sean decisions. 5. Emotions expressed by family were acknowledged and addressed. 6. Plan of Care: Dying patients fear dyspnea and pain, therefore, symptom control is one cornerstone of pulmonary palliative care. Dyspnea is a prominent symptom of the patient with advanced respiratory disease of any cause: nearly all patients with COPD had dyspnea during the last 3 days of their lives. I reviewed the dying process: Discussed changes pt may move through in the dying process including but not limited to sleeping more, disorientation when awake, restlessness, diminished senses/inability to respond to stimulus although ability to be aware of them remains intact longer, and changes in body temperatures, skin changes/mottling/cyanosis, respiratory pattern changes, and oral secretions. Family verbalized understanding. The goal is to assure a peaceful . We also reiewed the EOL Rally: When a person facing the end of life rallies, they seem to become "more stable" - may want to talk or even begin taking PO; this phenomenon is usually seen as a sudden burst of energy before . This period of perking up can be accompanied by such a notable change in mental clarity that is often referred to as terminal lucidity. This change in cognition and behavior goes against everything families learn about the physical signs that the end of life is near. It is important to note that evidence-based data is elusive, if nonexistent. Theories support that it may be a search for a final, strong connection. Also, as organs shut down, they can release a steroid like compound that briefly rouses the body - in the specific case of brain tumors, swelling occurs in the confined space of the skull. The edema shrinks as EOL care patients are weaned off food and drink, waking up the brain a bit. Families and caregivers may grasp at what seems to be a turnaround in a loved ones health, however, the EOL Rally is a hallmark pre- sign. It is not unc ommon for patients to show improvement before : they may want to talk while others may become restless or act as if they need to start preparing for a trip. Some patients will become more relaxed yet remain tuned in to what is going on around them, others will show signs of physical stability when, seconds before, they seemed on the verge of letting go. A rally can last for a few moments or even days. Short or long, these temporary improvements can have a profound effect on loved ones who are keeping pierce. Like a moment of clarity for someone who has dementia, a rally is one last opportunity to connect with a loved one. Each persons experience is unique and impossible to predict with total accuracy. We spoke about Oxygen at EOL: For patients at the end of life, oxygen delivered by a nasal cannula provides no additional symptomatic benefit for relief of refractory dyspnea in patients with life-limiting illness compared with room air: there's a point at which that the oxygen level gets so low that it's no longer compatible with life. By providing supplemental oxygen, the dying process will be unnecessarily prolonged. Please use less burdensome but more effective strategies such as comfort care meds, oscillating fan, massage, repositioning, etc. (Greyson AP, Edgar CF, Marielena PA, et al. Effect of palliative oxygen versus room air in relief of breathlessness in patients with refractory dyspnoea: a double-blind, randomised controlled trial. Lancet. 2010;376(2002):893-793. doi:10.1016/A8866-0046(23)79341-4) Secretions at EOL/management: I discussed with family that as the level of consciousness decreases in the dying process, patients lose their ability to swallow and clear oral secretions. As air moves over the secretions, which have pooled in the oropharynx and bronchi, the resulting turbulence produces noisy ventilation with each breath, described as gurgling or rattling noises. While there is no evidence that patients find this rattle disturbing, evidence from bereaved surveys suggests the noises can be disturbing to the patients visitors and caregivers who may fear that the patient is choking to . We recommend a combination of Non-Pharmacological and Pharmacological Treatments: * 1. Position the patient on their side or in a semi-prone position to facilitate postural drainage * 2. Communication with family and caregivers to reaffirm commitment to their loves ones care, reduce anxiety and fears. * 3. Gentle oropharyngeal suctioning is used although this can be ineffective when fluids are beyond the reach of the catheter. Avoid deep suctioning as it is very irritating. Note that frequent suctioning is disturbing to both the patient and the visitors. * 4. Reduction of fluid intake. * 5. Consider a 1-2 min Trendelenburg positioning, to move fluids up into the oropharynx for easier removal BUT note that ASPIRATION RISK WILL INCREASE. * 6. Muscarinic receptor blockers (anti-cholinergic drugs) are most often used: glycopyrrolate (Robinul), scopolamine (Transderm Scop), hyoscyamine and atropine. Of these, I prefer to using glycopyrrolate as first line treatment, because it is a quaternary amine (therefore does not cross the blood-brain barrier) which reduces the potential anti cholinergic agent associated [employer] toxicity (sedation, delirium). * 7. Glycopyrrolate has five times the anti-secretory potency compared to atropine, while scopolamine dries/thickens secretions and causes dry mouth, which may be more distressing to the patient and detract from comfort. Time Involved in Meetinmin chart review 60 min ACP 15min care coordiantion 15 min d/w primary team, nursing, care mgt Thank you for allowing us to participate in the ongoing care of this patient. Please page with any additional concerns. Abi Tineo DNP Director, Palliative Medicine
[2024-09-20] MEDS: MoRPHine SULFATE 2 MG/ML CARP IV PRN (06:05)
[2024-09-20 09:47] VITALS: RESP 18
--- NOTE | 2024-09-20 12:40 | Palliative Care Progress Note ---
Date of Service September 20, 2024 Assessment & Plan (1) Dyspnea and respiratory abnormalities: (2) Weakness generalized: (3) Need for comfort care: Plan: continue current plan of care Have dc orders for non essential oral meds as he is having trouble with pills (4) Discussion about advance care planning held with family member: Plan: Face to face meeting with daughters x3 and pt at bedside this afternoon for 30 min Reviewed symptom mgt and MAR utilization, no indication for gtt at present Hospice GIP as discussed in HPI Extensive psychosocial support provided to family and A nephew works at [facility] and is now helping them obtain possible placement, waiting on an update from him - he is working thru [facility] admin offices (5) Palliative care by specialist: Plan 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 Please page with any additional concerns. Abi Tineo DNP Director, Palliative Medicine Admission and Anticipated Discharge Date Admission Date: September 11, 2024 Subjective Mr Dutton is seen with his 3 daughters and present they tell me he was a little more alert this morning but then tired out easily, fell asleep. tolerates a few bites of soft foods - mostly potatoes, ice cream, etc he had some air hunger and pain earlier this morning and received a single dose of morphine which provided good relief he is taking much less PO, he is not able to take PO meds for the most part, not always alert/able to coordinate his swallow daughter is interested in a formal GIP eval, [facility] hospice declined stating they needed to work out specifics of what GIP would entail at [facility] inpatient so we will send request to [facility] hospice Review of Systems Review of Systems: Unobtainable due to cognitive status and Unobtainable due to reduced consciousness Physical Exam Physical Exam: chronically ill appearing lethargic mild inc resp effort with some use of abd muscles noted pale, cool skin abd soft S1S2, no JVD lethargic/somnolent unable to follow commands Results & Data Vital Signs (Past 12 Hours) Vital Signs Temp Pulse Resp BP Pulse Ox O2 Del Method 09/20/24 09:45 36.8 C 57 L 18 111/50 L 90 Room Air Laboratory Results 09/18/24 09/17/24 09/16/24 Range/Units 07:17 07:43 06:15 WBC 8.85 (4.8-10.8) K/ul RBC 4.29 L (4.70-6.10) M/uL Hgb 13.0 L (14.0-18.0) g/dl Hct 38.6 L (42.0-52.0) % MCV 90.0 (80.0-100.0) fL MCH 30.3 (25.0-34.0) pg MCHC 33.7 (32.0-36.0) g/dL RDW Std Deviation 43.2 (36.4-46.3) fL RDW Coeff of Ravi 13.2 (11.5-14.5) % Plt Count 197 (130-400) K/uL MPV 10.9 (9.4-12.4) fL Immature Gran % (Auto) 0.7 % Neut % (Auto) 62.7 % Lymph % (Auto) 26.4 % Young % (Auto) 8.8 % Eos % (Auto) 1.2 % Baso % (Auto) 0.2 % Neut # (Auto) 5.54 (1.40-6.50) K/uL Lymph # (Auto) 2.34 (1.20-3.40) K/uL Young # (Auto) 0.78 H (0.11-0.59) K/uL Eos # (Auto) 0.11 (0.00-0.50) K/uL Baso # (Auto) 0.02 (0.00-0.20) K/uL Immature Gran # (Auto) 0.06 (0.01-0.20) K/uL Sodium 139 (136-145) mmol/L Potassium 3.9 (3.5-5.1) mmol/L Chloride 108 H (98-107) mmol/L Carbon Dioxide 26 (21-32) mmol/L Anion Gap 5 (3-11) BUN 39 H (6-23) mg/dl Creatinine 1.37 1.36 (0.6-1.4) mg/dl Est Cr Clr Drug Dosing 35.4 35.6 ml/min eGFR 49.31 49.74 BUN/Creatinine Ratio 28.5 H (10-20) Glucose 92 (70-99(Fasting)) mg/dl POC Glucose (70-99) mg/dl Calcium 8.1 L (8.6-10.3) mg/dl Urine Color Yellow Urine Appearance Clear (Clear) Urine pH 5.5 (4.5-7.5) Ur Specific [place] 1.030 (1.000-1.030) Urine Protein 1+ H (Negative) Urine Glucose (UA) Negative (Negative) Urine Ketones Trace H (Negative) Urine Blood Negative (Negative) Urine Nitrite Negative (Negative) Urine Bilirubin Negative (Negative) Urine Urobilinogen Negative (Negative) Ur Leukocyte Esterase Negative (Negative) Urine WBC (Auto) 0-5 (0-5) /hpf Urine RBC (Auto) 0-2 (0-2) /hpf U Hyaline Cast (Auto) 0-2 (0-2) /lpf U Epithel Cells (Auto) 0-2 (0-2) /hpf Urine Bacteria (Auto) None Seen (None Seen) 09/15/24 09/14/24 Range/Units 10:44 11:05 WBC (4.8-10.8) K/ul RBC (4.70-6.10) M/uL Hgb (14.0-18.0) g/dl Hct (42.0-52.0) % MCV (80.0-100.0) fL MCH (25.0-34.0) pg MCHC (32.0-36.0) g/dL RDW Std Deviation (36.4-46.3) fL RDW Coeff of Ravi (11.5-14.5) % Plt Count (130-400) K/uL MPV (9.4-12.4) fL Immature Gran % (Auto) % Neut % (Auto) % Lymph % (Auto) % Young % (Auto) % Eos % (Auto) % Baso % (Auto) % Neut # (Auto) (1.40-6.50) K/uL Lymph # (Auto) (1.20-3.40) K/uL Young # (Auto) (0.11-0.59) K/uL Eos # (Auto) (0.00-0.50) K/uL Baso # (Auto) (0.00-0.20) K/uL Immature Gran # (Auto) (0.01-0.20) K/uL Sodium (136-145) mmol/L Potassium (3.5-5.1) mmol/L Chloride (98-107) mmol/L Carbon Dioxide (21-32) mmol/L Anion Gap (3-11) BUN (6-23) mg/dl Creatinine 1.58 H (0.6-1.4) mg/dl Est Cr Clr Drug Dosing 30.7 ml/min eGFR 41.55 BUN/Creatinine Ratio (10-20) Glucose (70-99(Fasting)) mg/dl POC Glucose 111 H (70-99) mg/dl Calcium (8.6-10.3) mg/dl Urine Color Urine Appearance (Clear) Urine pH (4.5-7.5) Ur Specific [place] (1.000-1.030) Urine Protein (Negative) Urine Glucose (UA) (Negative) Urine Ketones (Negative) Urine Blood (Negative) Urine Nitrite (Negative) Urine Bilirubin (Negative) Urine Urobilinogen (Negative) Ur Leukocyte Esterase (Negative) Urine WBC (Auto) (0-5) /hpf Urine RBC (Auto) (0-2) /hpf U Hyaline Cast (Auto) (0-2) /lpf U Epithel Cells (Auto) (0-2) /hpf Urine Bacteria (Auto) (None Seen) Diagnostic Findings no new imaging PG Care Time/CCT Total # of Minutes Spent Total Time Spent with Patient: Total time spent is greater than 50% in coordination of care (as documented) at patient's floor/unit and/or counseling patient: I spent 80 minutes overall addressing this case: 5 min in medical data review/discussion with referring provider(s) and/or preparation for the visit 15 min in direct interaction with the patient/exam 30min in Advance Care Planning/Goals of Care discussions as detailed above in note (must be >16min) 15 min in subsequent review and synthesis of assessment and plan 15 min communicating with other providers regarding the patient's case: Advanced Care Planning 13109 Advanced Care Planning 30 Min [place] [address] SUB INP/OBS CARE 3/50MIN (25 - SIGNIFICANT, SEPARATELY IDENTIFIABLE ) Patient Type Established Medical Decision Making High Complexity Diagnoses Dyspnea and respiratory abnormalities R06.00; R06.89 Weakness generalized R53.1 Need for comfort care Discussion about advance care planning held with family member Z71.0 Palliative care by specialist Z51.5 Additional Codes Advanced Care Planning - 10185 Advanced Care Planning 30 Min: 60363 Advanced Care Planning 30 Min ([id number])
--- NOTE | 2024-09-20 15:54 | Hospitalist Progress Note ---
Date of Service September 20, 2024 Assessment & Plan (1) Acute metabolic encephalopathy: Plan: Palliative care encounter Acute metabolic and cephalopathy with acute on chronic respiratory failure secondary to COVID-19 virus infection and influenza A Significant dementia with delirium Has been put on comfort care after extensive discussion with the family members and the palliative care service He remains stable and awaiting to be evaluated by hospice care for possible GIP/placement (2) Acute on chronic hypoxic respiratory failure: (3) Influenza A: (4) COVID-19: Plan: Below is the detailed hospital progress note This is an 88-year-old male who is a resident at [facility] with PMH of COPD with nocturnal hypoxemia on 2 L nasal cannula O2 at bedtime, CAD s/p stent, history of AAA s/p repair 2019 following with [facility] vascular surgery, hypertension, hyperlipidemia, R renal artery stenosis, anemia, dementia and other medical problems listed below who was sent in for SOB and lethargy and was found to have acute on chronic hypoxic respiratory failure in setting of COVID- 19 and influenza A infections. Hypoxic in mid 80s at the facility but improved to 96% on 4 L nasal cannula upon arrival (baseline O2 requirement : 2L NC O2 HS) No leukocytosis, VBG pH within normal limits, procalcitonin neg SARSCov2, influenza A both positive on PCR Isolation precautions Continue Tamiflu renally dosed at 30mg BID x 5 day course Decadron 6mg IV daily, antitussives Remdesivir contraindicated due to patient's intermittent bradycardia DuoNebs Q4 HR as needed shortness of breath or wheezing Continue home inhalers , incentive spirometer. Remains medically stable and requiring 2 L to maintain saturation No other significant symptoms Will have PT OT evaluation and to get stable O2 saturation Remains medically stable without any respiratory symptoms No respiratory symptoms and saturating normally on room air Minimal wheezing but has been saturating normally on room air Was getting more agitated during physical therapy and was unable to follow-up instructions Remains medically stable with more wheezing but no shortness of breath at rest Nebulized bronchodilator will be given scheduled doses at 4 times a day and added with nebulized steroid Inhalers have been discontinued as he cannot take it/use it He has been getting albuterol nebulized twice a day and Perforomist nebulized twice a day Wheezing is better and he has been saturating normally on room air No respiratory symptoms at rest and today's the day 8 of COVID isolation Acute delirium Anxiety and agitation with history of dementia Required 1 dose of IM Zyprexa last night and has been having one-to-one sitter Will increase his Prozac from 10 to 20 mg and observe while he is in the hospital Regular diet was prescribed as per the daughter Pleasantly confused no acute delirium His steroid has been discontinued and is still having acute delirium A small dose of Seroquel at 12.5 mg added at night Condition is worse today and remains delirious Seroquel will be discontinued Discussed with the family members and a palliative care consultation was placed to guide management from here (5) Lower extremity edema: Plan: Noted 3 days ago, took 40mg lasix x 1 yesterday Appears dry on exam in setting of infxn as above - hold off on further lasix for now Echo with EF of 55 to 60%, normal LV systolic function. BLE Doppler negative for DVT. Continue to monitor for volume status. Bilateral leg edema has improved (6) S/P AAA repair: Plan: Known endoleak s/p repair of abdominal aortic aneurysm with Cook Zenith stent graft by Dr. Townsend on 01/26/2019 for 5.6 cm AAA Family elected for no further surveillance of the AAA and no treatment of the endoleak No chemical VTE (7) COPD (chronic obstructive pulmonary disease): Plan: Dexamethasone, PRN Duonebs and home inhalers as above Minimal shortness of breath at rest with wheezing No exacerbation Has been getting as needed nebulizer treatment for wheezing (8) Dementia: Plan: Talkative and alert to self, family at baseline Seems to be at his baseline Other chronic conditions: HTN : Continue amlodpine daily BPH : Continue doxazosin, finasteride Mood disorder : Continue SSRI GERD: Continue protonix CKD III: Cr 1.69 (bl ~ 1.6-1.7). Monitor with daily BMP DVT Ppx: SCDs Code status: DNR/DNI per discussion with family PCP: Sang Dispo: admitted to [facility] tele Daughter and other family members were updated Palliative care consultation is placed Admission and Anticipated Discharge Date Admission Date: September 11, 2024 Subjective 09/13/2024 The patient was seen and examined in telemetry unit He has been having some wheezing and minimal shortness of breath at rest Denies any other significant symptoms He wants to be discharged 09/14/2024 The patient was seen and examined in telemetry unit He has been much better and has minimal cough but no shortness of breath Has been saturating normally on room air and awaiting placement 09/15/2024 The patient was seen and examined in telemetry unit He has had episode of anxiety and agitation last night and required 1 dose of Zyprexa Has been feeling much better He wanted to be discharged 09/16/2024 The patient was seen and examined in telemetry unit He has been stable and remains pleasantly confused Does not show any more aggressiveness 09/17/2024 The patient was seen and examined in telemetry unit in presence of the daughter He was agitated last night and quired 2 doses of Zyprexa Has been sleeping this morning with audible wheezing without any desaturation 09/18/2024 The patient was seen and examined in telemetry unit He has been stable today and has been listening for over he was told Remains pleasantly confused fused Has been eating and drinking reasonably 09/19/2024 The patient was seen and examined in telemetry unit in presence of the family members His condition has gone worse with acute confusion and generalized weakness He is not making any meaningful sounds and/or conversation Does not have any acute distress otherwise Offered palliative care intervention and the family members are okay with that 09/20/2024 The patient was seen and examined in telemetry unit in presence of the daughter He has been stable and remains pleasantly confused Conversing normally with limitations and denies any significant symptoms Review of Systems Review of Systems: All systems reviewed and are unremarkable except as noted below Physical Exam Physical Exam: Lying in bed without any acute distress but remains very weak and lethargic Constitutional: well developed, well nourished, + ill appearing and average body habitus Eyes: PERRL, conjunctivae normal, anicteric sclerae ENMT: external ear and nose normal, oropharynx normal Neck: trachea midline, no thyromegaly Respiratory: + respiratory distress (Minimal distress at rest with wheezing and minimal cough) Auscultation: + diminished lung sounds, + crackles and + wheezes Cardiovascular: Rate/Rhythm: regular rate and regular rhythm; not tachycardic Heart Sounds: normal S1 and normal S2; no murmur Extremities: no edema Gastrointestinal (Abdomen): Inspection/Auscultation: normal bowel sounds; abdomen not distended Percussion/Palpation: abdomen soft; abdomen nontender Neurologic: normal touch/pain/proprioception and moves all extremities; no focal motor deficits Lymphatic: no cervical or axillary lymphadenopathy Results & Data Results & Data Vital Signs (Past 12 Hours) Vital Signs Temp Pulse Resp BP Pulse Ox O2 Del Method 09/20/24 09:45 36.8 C 57 L 18 111/50 L 90 Room Air Medications Administered Current Inpatient Medications Acetaminophen (Acetaminophen 325 Mg Tab) 650 mg PO Q4H PRN PRN Reason: Pain or Fever Stop: 10/11/24 22:02 Last Admin: 09/19/24 12:07 Dose: 650 mg Amlodipine Besylate (Amlodipine Besylate 5 Mg Tab) [address] [facility] Stop[facility] 10/12/24 08:59 Last Admin: 09/20/24 09:47 Dose: Not Given Doxazosin Mesylate (Doxazosin Mesylate 4 Mg Tab) 4 mg PO [facility] Stop: 10/11/24 22:02 Last Admin: 09/19/24 22:02 Dose: 4 mg Finasteride (Finasteride 5 Mg Tab) 5 mg PO [facility] Stop: 10/12/24 08:59 Last Admin: 09/20/24 10:31 Dose: 5 mg Glycopyrrolate (Glycopyrrolate 0.2 Mg/Ml Vial) 0.4 mg IV Q4H PRN PRN Reason: Rattling Secretions or Pulm Congestion Stop: 10/19/24 14:10 Lorazepam (Lorazepam 2 Mg/1 Ml Vial) 0.5 mg IV Q4H PRN PRN Reason: Anxiety/Agitation Stop: 10/19/24 14:10 Morphine Sulfate (Morphine Sulfate 2 Mg/Ml Carp) 2 mg IV Q1H PRN PRN Reason: Pain or Respiratory Distress Stop: 10/03/24 14:10 Last Admin: 09/20/24 06:05 Dose: 2 mg Ondansetron HCl (Ondansetron Inj 2 Mg/Ml 2 Ml Vial) 4 mg IV Q4H PRN PRN Reason: Nausea &/or Vomiting Stop: 10/19/24 14:10
[2024-09-21] MEDS ORDERED: ALBUTEROL 0.083% NEBU SOLN 3 ML VIAL NEB PRN (14:16)
[2024-09-21] MEDS ORDERED: guaiFENesin SUGAR FREE 200 MG/10 ML UDC PO PRN (14:17)
--- NOTE | 2024-09-21 14:22 | Hospitalist Progress Note ---
Date of Service September 21, 2024 Assessment & Plan (1) Need for comfort care: (2) Acute on chronic hypoxic respiratory failure: (3) Influenza A: (4) COVID-19: (5) Dementia: (6) COPD (chronic obstructive pulmonary disease): (7) Acute metabolic encephalopathy: Plan Patient on comfort care with family understanding that patient has acute decline in his overall functional status after recent influenza and COVID infection. Because of the rapid decline in his dementia and overall ability to care for himself. Amador Joya Continue with comfort care Scheduled Tylenol for some pain control Trial of oral Roxanol for pain control Pured diet per daughter's request Nurse states the patient able to take his other pills so anticipate he should be able to take the Tylenol and Roxanol Some other symptomatic treatments with nebulizers and guaifenesin, suspect patient may have aspirated a little bit and this would help with some of those symptoms Continuing to work with case management to pursue possible placement. Admission and Anticipated Discharge Date Admission Date: September 11, 2024 Subjective Daughter at bedside. States he has some generalized pain but does not want to take the morphine IV. Thinks he may have aspirated a bit on Protein shake this morning. But understands that this is something that may occur as he gets weaker Physical Exam Physical Exam: Constitutional: Alert but falls asleep easily, nontoxic, no distress HEENT: Mucous membranes moist. Lungs: Decreased breath sounds, some upper airway wheezing and rhonchi CV: S1-S2, regular Abdomen: Soft, nontender, nondistended Extremities: No significant edema Neuro: No focal deficits, generalized weakness Psych: Impaired cognition Results & Data Results & Data Vital Signs (Past 12 Hours) Vital Signs Temp Pulse Resp BP Pulse Ox O2 Del Method 09/21/24 09:52 Room Air 09/21/24 07:53 37.5 C 76 18 122/68 93 Room Air
[2024-09-21 15:09] VITALS: TEMP 99.3
[2024-09-21] MEDS: ACETAMINOPHEN 325 MG TAB PO SCH (16:58)
--- NOTE | 2024-09-22 12:52 | Hospitalist Progress Note ---
Date of Service September 22, 2024 Assessment & Plan (1) Need for comfort care: (2) Acute on chronic hypoxic respiratory failure: (3) Influenza A: (4) COVID-19: (5) Dementia: (6) COPD (chronic obstructive pulmonary disease): (7) Acute metabolic encephalopathy: Plan Continue with comfort care Case management continuing to pursue placement options Admission and Anticipated Discharge Date Admission Date: September 11, 2024 Subjective No acute issues overnight. Patient pleasantly awake today. Did eat a little bit of breakfast Physical Exam Physical Exam: Constitutional: Alert, nontoxic HEENT: Mucous membranes moist. Lungs: Clear to auscultation, decreased, no wheezes rales or rhonchi CV: S1-S2, regular Abdomen: Soft, nontender, nondistended Extremities: No significant edema Neuro: No focal deficits, confused Psych: Cooperative, abnormal memory and cognition Results & Data Results & Data Vital Signs (Past 12 Hours) Vital Signs O2 Del Method 09/22/24 07:00 Room Air
--- NOTE | 2024-09-23 00:22 | Palliative Care Progress Note ---
Date of Service September 22, 2024 Assessment & Plan (1) Palliative care by specialist: (2) Need for comfort care: (3) Weakness generalized: (4) Dyspnea and respiratory abnormalities: Plan: Plan [employer] - Symptom manamgement: Pain/dyspnea/tachypnea [] morphine 2mg IVP PRN q1h Consider titratable morphine drip if pt requires >3 PRN doses in under four consecutive hours. Nausea/vomitting [] zofran 4mg IVP q4h PRN Agitation [] ativan 0.5mg IVP q4h PRN Hyperactive delirium [] haldol 5mg IVP q6h PRN Secretions - if repositioning not effective [] robinul 0.4mg IV q4h PRN [] atropine SL 3 drops Q1h PRN Nursing care: Discontinue all medications not directed towards comfort. Detether pt from IV tubing, monitor cables, and check vitals once per shift. Please continue HFNC and titrate down as able for patient comfort. Use medications above PRN for dyspnea/tachypnea and do not increase oxygen once titrated down. Assess q1h for pain/dyspnea and treat accordingly. Admission and Anticipated Discharge Date Admission Date: September 11, 2024 Subjective Assessed pt at bedside, []he was transitioned to [employer] on []. Pt is unresponsive to verbal and gentle tactile stimuli, did not attempt to awaken in concert with comfort directed care. He appears comfortable, skin pale, extremities warm, well perfused. Respiratory effort normal, rate 14/min. Large family presence at bedside. Review of Systems Review of Systems: Unobtainable due to cognitive status Physical Exam Physical Exam: Constitutional: sleepiung, NAD HEENT: Mucous membranes moist. Lungs: Clear to auscultation, decreased, no wheezes rales or rhonchi CV: S1-S2, regular Abdomen: Soft, nontender, nondistended Extremities: No significant edema Neuro: No focal deficits, confused Results & Data Vital Signs (Past 12 Hours) Vital Signs Temp 37.4 C 09/21/24 15:09 Pulse 74 09/21/24 15:09 Resp 18 09/21/24 15:09 BP 103/61 09/21/24 15:09 Pulse Ox 96 09/21/24 15:09 O2 Del Method Room Air 09/22/24 07:00 O2 Flow Rate 2 09/21/24 23:00 Intake & Output 09/22/24 09/22/24 09/23/24 06:59 18:59 06:59 Intake Total 0 / 0 Balance 0 / 0 Intake: Oral 0 / 0 Other: # Unmeasured Voids 1 Laboratory Results No further labs or diagnostics in concert with comfort directed care. Diagnostic Findings No further labs or diagnostics in concert with comfort directed care. Medications Administered Current Inpatient Medications Acetaminophen (Acetaminophen 325 Mg Tab) 650 mg PO QID [facility] Stop: 10/21/24 16:59 Last Admin: 09/22/24 20:13 Dose: Not Given Albuterol (Albuterol 0.083% Nebu Soln 3 Ml Vial) 2.5 mg NEB Q4H PRN; Protocol PRN Reason: SOB, wheeze, aspiration Stop: 10/21/24 14:15 Amlodipine Besylate (Amlodipine Besylate 5 Mg Tab) 5 mg PO QAM [facility] Stop: 10/12/24 08:59 Last Admin: 09/22/24 08:54 Dose: Not Given Doxazosin Mesylate (Doxazosin Mesylate 4 Mg Tab) 4 mg PO HS [facility] Stop: 10/11/24 22:02 Last Admin: 09/22/24 20:13 Dose: Not Given Finasteride (Finasteride 5 Mg Tab) 5 mg PO QAM [facility] Stop: 10/12/24 08:59 Last Admin: 09/22/24 08:55 Dose: 5 mg Glycopyrrolate (Glycopyrrolate 0.2 Mg/Ml Vial) 0.4 mg IV Q4H PRN PRN Reason: Rattling Secretions or Pulm Congestion Stop: 10/19/24 14:10 Guaifenesin (Guaifenesin Sugar Free 200 Mg/10 Ml Udc) 200 mg PO Q6H PRN PRN Reason: Cough Stop: 10/21/24 14:16 Lorazepam (Lorazepam 2 Mg/1 Ml Vial) 0.5 mg IV Q4H PRN PRN Reason: Anxiety/Agitation Stop: 10/19/24 14:10 Morphine Sulfate (Morphine Sulfate 2 Mg/Ml Carp) 2 mg IV Q1H PRN PRN Reason: Pain or Respiratory Distress Stop: 10/03/24 14:10 Last Admin: 09/21/24 13:51 Dose: 2 mg Morphine Sulfate (Morphine Sulfate 10 Mg/0.5 Ml Udp) 5 mg PO Q2H PRN PRN Reason: Pain Stop: 10/05/24 14:15 Ondansetron HCl (Ondansetron Inj 2 Mg/Ml 2 Ml Vial) 4 mg IV Q4H PRN PRN Reason: Nausea &/or Vomiting Stop: 10/19/24 14:10 PG Care Time/CCT Total # of Minutes Spent Total Time Spent with Patient: Total time spent is greater than 50% in coordination of care (as documented) at patient's floor/unit and/or counseling patient: Coding [place] [address] SUB INP/OBS CARE 2/35MIN Patient Type Established Medical Decision Making Low Complexity Diagnoses Palliative care by specialist Z51.5 Need for comfort care Weakness generalized R53.1 Dyspnea and respiratory abnormalities R06.00; R06.89
--- NOTE | 2024-09-23 12:16 | Hospitalist Progress Note ---
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 Patient is now on room air. Patient's mixed dementia has rapidly progressed and is now displaying symptoms of end-stage dementia. family has chosen to move forward with comfort measures. Patient still awake and cooperative with taking oral medications,, utilize oral manage locations as this can be given in outside facilities Family members at bedside aware that we continue to pursue placement for his ongoing comfort care Case management continue to pursue placement options Admission and Anticipated Discharge Date Admission Date: September 11, 2024 Subjective No acute issues overnight. Daughter at bedside reports patient sleeping most of the time. He does awaken and interact with me. Will take medications and eat intermittently. Daughter and patient reports that he does not appear to be any discomfort, pain or distress. Physical Exam Physical Exam: Constitutional: Asleep but able to be awakened, nontoxic, no distress HEENT: Mucous membranes moist. Lungs: Decreased breath sounds CV: S1-S2, regular Abdomen: Soft, nontender, nondistended Extremities: No significant edema Neuro: No focal deficits, generally weak Psych: Cooperative, sleepy, abnormal cognition and memory Results & Data Results & Data Vital Signs (Past 12 Hours) Vital Signs O2 Del Method 09/23/24 09:36 Room Air
--- NOTE | 2024-09-24 10:55 | Hospitalist Progress Note ---
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 Daughter at bedside. Both daughter and patient report that he is comfortable. Reports she had a good breakfast Physical Exam Physical Exam: Constitutional: Alert, nontoxic, no acute distress HEENT: Mucous membranes moist. Lungs: Clear to auscultation, decreased, no wheezes rales or rhonchi CV: S1-S2, regular Abdomen: Soft, nontender, nondistended Extremities: No significant edema Neuro: No focal deficits Psych: Cooperative, pleasantly confused with abnormal memory and cognition
--- NOTE | 2024-09-25 11:15 | Hospitalist Progress Note ---
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 Will call family for routine update this afternoon. I spent a total of 35 minutes coordinating, documenting, and providing care for this patient excluding time spent in the performance of separately billed services. Admission and Anticipated Discharge Date Admission Date: September 11, 2024 Subjective Seen and examined in 324. Pleasantly confused, no changes overnight. Feels very "relaxed, " per patient. Looking forward to family visiting this afternoon. Review of Systems Review of Systems: Unobtainable due to cognitive status Physical Exam Physical Exam: Gen: WD/WN, NAD, resting comfortably, pleasantly confused with abnormal memory and cognition HEENT: Normocephalic, atraumatic, mucous membranes moist Lung: Diminished breath sounds, no distress Heart: Regular rate, regular rhythm Abdomen: Soft, NT, ND +BS x 4 Extremities: trace edema Skin: Warm, no rash Results & Data Results & Data Vital Signs (Past 12 Hours) Vital Signs O2 Del Method 09/25/24 10:54 Room Air Diagnostic Findings Chest X-Ray 09/11/24 15:59 EXAM: Radiograph of the Chest 1 View INDICATION: Shortness of breath. TECHNIQUE: Frontal view of the chest. COMPARISON: 06/17/2023 FINDINGS: Lungs and pleural spaces: Stable mild left basilar pleural thickening. No effusion or pneumothorax. Stable streaky scarring in the lower lung zones. Heart: Stable prominent cardiac shadow accentuated by technique. Mediastinum: Normal contour. Bones/joints: No fracture, erosion or dislocation. Soft tissues: No abnormality noted. No radiopaque foreign body noted. Upper abdomen: No abnormality noted. IMPRESSION: Stable chronic changes. No acute disease. ACT 112: Negative or not required by law. Electronically signed by Jalyn Steward 09-11-2024 5:05 PM Venous Doppler Study 09/11/24 19:18 Exam(s): US VENOUS BILATERAL LOWER EXTREMITIES EXAM: US Duplex Bilateral Lower Extremities Veins CLINICAL HISTORY: Reason for exam: BLE. TECHNIQUE: Real-time duplex ultrasound scan of the bilateral lower extremity veins integrating B-mode two-dimensional vascular structure, Doppler spectral analysis, color flow Doppler imaging and compression. COMPARISON: No relevant prior studies available. FINDINGS: Right deep veins: Unremarkable. The visualized deep veins of the right lower extremity are compressible with color flow. No visualized thrombus. Right superficial veins: Unremarkable. Left deep veins: Unremarkable. The visualized deep veins of the left lower extremity are compressible with color flow. No visualized thrombus. Left superficial veins: Unremarkable. Soft tissues: No acute findings. IMPRESSION: No DVT within the bilateral lower extremities. Electronically signed by: Dick Herrera MD 09/11/24 23:55 PM Chest X-Ray 09/14/24 01:03 EXAM: XR chest 1V portable CLINICAL HISTORY: Wheezing TECHNIQUE: An X-ray image of the chest is obtained in AP projection. COMPARISON: 09/11/2024. FINDINGS: Pulmonary Parenchyma: Lungs are clear bilaterally. No evidence of consolidation, collapse, or focal opacities. No pulmonary nodules are identified. No evidence of pleural effusion or pleural thickening. Heart and Mediastinum: Heart size and shape are normal. No mediastinal widening or masses. No hilar or mediastinal lymphadenopathy. Bony Thorax: Bony thorax appears intact without fractures or deformities. Soft Tissues: Soft tissues overlying the chest wall are unremarkable. IMPRESSION: 1. Normal chest X-ray. No acute cardiopulmonary abnormalities are identified. 2. No residual peribronchial cuffing compared to last CR. Electronically signed by Hunter Sagastume 09-14-2024 02:47 AM
--- NOTE | 2024-09-26 11:32 | Hospitalist Progress Note ---
Date of Service September 26, 2024 Assessment & Plan (1) Acute metabolic encephalopathy: (2) Acute on chronic hypoxic respiratory failure: (3) Influenza A: (4) COVID-19: (5) Lower extremity edema: (6) S/P AAA repair: (7) COPD (chronic obstructive pulmonary disease): (8) Dementia: Plan This is a very pleasant 88 yr old M who is currently admitted under comfort measures in setting of advanced dementia with multiple comorbidities. 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 He has not required any comfort care medications and he is otherwise medically stable for discharge. CM working on placement to SNF, possible bed available Thursday. I spent a total of 34 minutes reviewing notes, outpatient records, labs, medication, coordinating, documenting and providing care for this patient excluding time spent in the performance of separately billed services. Admission and Anticipated Discharge Date Admission Date: September 11, 2024 Subjective Seen and examined in 324. Offers no acute concerns. He denies pain. He remains on comfort measures. Review of Systems Review of Systems: All systems reviewed & are unremarkable except as noted in HPI & below Physical Exam Physical Exam: Gen: WD/WN, elderly, M, NAD, A&O x1 only HEENT: Normocephalic, atraumatic, conjunctivae moist, sclerae anicteric, mucous membranes moist. Lung: Clear to Auscultation bilaterally, no wheezes/rales/rhonchi Heart: Regular rate, regular rhythm, no murmurs, rubs, or gallops Abdomen: Soft, NT, ND +BS x 4 Extremities: No edema Skin: Warm, no rash, negative turgor. Results & Data Results & Data Medications Administered Current Inpatient Medications Acetaminophen (Acetaminophen 325 Mg Tab) 650 mg PO QID [facility] Stop: 10/21/24 16:59 Last Admin: 09/26/24 08:05 Dose: 650 mg Albuterol (Albuterol 0.083% Nebu Soln 3 Ml Vial) 2.5 mg NEB Q4H PRN; Protocol PRN Reason: SOB, wheeze, aspiration Stop: 10/21/24 14:15 Amlodipine Besylate (Amlodipine Besylate 5 Mg Tab) 5 mg PO QAM [facility] Stop: 10/12/24 08:59 Last Admin: 09/26/24 07:53 Dose: 5 mg Doxazosin Mesylate (Doxazosin Mesylate 4 Mg Tab) 4 mg PO HS [facility] Stop: 10/11/24 22:02 Last Admin: 09/25/24 07:29 Dose: 4 mg Finasteride (Finasteride 5 Mg Tab) 5 mg PO QAM [facility] Stop: 10/12/24 08:59 Last Admin: 09/26/24 07:53 Dose: 5 mg Glycopyrrolate (Glycopyrrolate 0.2 Mg/Ml Vial) 0.4 mg IV Q4H PRN PRN Reason: Rattling Secretions or Pulm Congestion Stop: 10/19/24 14:10 Guaifenesin (Guaifenesin Sugar Free 200 Mg/10 Ml Udc) 200 mg PO Q6H PRN PRN Reason: Cough Stop: 10/21/24 14:16 Lorazepam (Lorazepam 1 Mg Tab) 1 mg SL Q4H PRN PRN Reason: Discomfort, restless, anxiety Stop: 10/23/24 12:07 Morphine Sulfate (Morphine Sulfate 10 Mg/0.5 Ml Udp) 5 mg PO Q2H PRN PRN Reason: Pain Stop: 10/05/24 14:15 Ondansetron HCl (Ondansetron Inj 2 Mg/Ml 2 Ml Vial) 4 mg IV Q4H PRN PRN Reason: Nausea &/or Vomiting Stop: 10/19/24 14:10
[2024-09-26] MEDS: LORazepam 1 MG TAB SL PRN (19:03)
--- NOTE | 2024-09-27 12:00 | Hospitalist Progress Note ---
<Statement entered by Erick Vidal, DO - 09/27/24 12:15> I have seen and examined the patient and have discussed the case with the provider above. I have reviewed the advanced practitioner's documentation, and I agree with, and take responsibility for that plan of care. Patient asleep but easily awakened. Daughter at bedside. Daughter reports that his appetite is really decreased. Lost some weight close to 10 pounds over the past month. He is pleasantly confused but denies any pain or discomfort Plan of care as outlined below Date of Service September 27, 2024 Assessment & Plan (1) Acute metabolic encephalopathy: (2) Acute on chronic hypoxic respiratory failure: (3) Influenza A: (4) COVID-19: (5) Lower extremity edema: (6) S/P AAA repair: (7) COPD (chronic obstructive pulmonary disease): (8) Dementia: Plan This is a very pleasant 88 yr old M who is currently admitted under comfort measures in setting of advanced dementia with multiple comorbidities. 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 He has not required any comfort care medications and he is otherwise medically stable for discharge. CM working on placement to SNF. I had a lengthy discussion with daughter yesterday who is POA. Plan is to d/c to [facility] when a bed is available. She was concerned regarding who would be assuming his care and she was encouraged that [facility] providers go to [facility]. I spent a total of 33 minutes reviewing notes, outpatient records, labs, medication, coordinating, documenting and providing care for this patient excluding time spent in the performance of separately billed services. Admission and Anticipated Discharge Date Admission Date: September 11, 2024 Subjective Seen and examined in 324. Offers no acute concerns. He reports feeling good. No issues from nursing. Review of Systems Review of Systems: Unobtainable due to cognitive status Physical Exam Physical Exam: Gen: WD/WN, elderly, M, NAD, A&O x1 only HEENT: Normocephalic, atraumatic, conjunctivae moist, sclerae anicteric, mucous membranes moist. Lung: Clear to Auscultation bilaterally, no wheezes/rales/rhonchi Heart: Regular rate, regular rhythm, no murmurs, rubs, or gallops Abdomen: Soft, NT, ND +BS x 4 Extremities: No edema Skin: Warm, no rash, negative turgor. Results & Data Results & Data Medications Administered Current Inpatient Medications Acetaminophen (Acetaminophen 325 Mg Tab) 650 mg PO QID [facility] Stop: 10/21/24 16:59 Last Admin: 09/27/24 08:10 Dose: 650 mg Albuterol (Albuterol 0.083% Nebu Soln 3 Ml Vial) 2.5 mg NEB Q4H PRN; Protocol PRN Reason: SOB, wheeze, aspiration Stop: 10/21/24 14:15 Amlodipine Besylate (Amlodipine Besylate 5 Mg Tab) 5 mg PO QAM [facility] Stop: 10/12/24 08:59 Last Admin: 09/27/24 08:10 Dose: 5 mg Doxazosin Mesylate (Doxazosin Mesylate 4 Mg Tab) 4 mg PO HS [facility] Stop: 10/11/24 22:02 Last Admin: 09/26/24 22:30 Dose: 4 mg Finasteride (Finasteride 5 Mg Tab) 5 mg PO QAM [facility] Stop: 10/12/24 08:59 Last Admin: 09/27/24 08:11 Dose: 5 mg Glycopyrrolate (Glycopyrrolate 0.2 Mg/Ml Vial) 0.4 mg IV Q4H PRN PRN Reason: Rattling Secretions or Pulm Congestion Stop: 10/19/24 14:10 Guaifenesin (Guaifenesin Sugar Free 200 Mg/10 Ml Udc) 200 mg PO Q6H PRN PRN Reason: Cough Stop: 10/21/24 14:16 Lorazepam (Lorazepam 1 Mg Tab) 1 mg SL Q4H PRN PRN Reason: Discomfort, restless, anxiety Stop: 10/23/24 12:07 Last Admin: 09/26/24 19:03 Dose: 1 mg Morphine Sulfate (Morphine Sulfate 10 Mg/0.5 Ml Udp) 5 mg PO Q2H PRN PRN Reason: Pain Stop: 10/05/24 14:15 Ondansetron HCl (Ondansetron Inj 2 Mg/Ml 2 Ml Vial) 4 mg IV Q4H PRN PRN Reason: Nausea &/or Vomiting Stop: 10/19/24 14:10
--- NOTE | 2024-09-28 11:12 | Hospitalist Progress Note ---
Date of Service September 28, 2024 Assessment & Plan (1) Acute metabolic encephalopathy: (2) Acute on chronic hypoxic respiratory failure: (3) Influenza A: (4) COVID-19: (5) Lower extremity edema: (6) S/P AAA repair: (7) COPD (chronic obstructive pulmonary disease): (8) Dementia: Plan This is a very pleasant 88 yr old M who is currently admitted under comfort measures in setting of advanced dementia with multiple comorbidities. 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 He has not required any comfort care medications and he is otherwise medically stable for discharge. CM working on placement to SNF. Pt is waiting day by day for bed availability at [facility]. They do not have a bed today and will be hopeful one will be available tomorrow. I spent a total of 22 minutes reviewing notes, outpatient records, labs, medication, coordinating, documenting and providing care for this patient excluding time spent in the performance of separately billed services. Admission and Anticipated Discharge Date Admission Date: September 11, 2024 Supervising Physician Co-Signing Physician Notes Patient seen and examined I spent a total of 15 minutes coordinating, documenting and providing care for this patient excluding time spent in performance of separately billed services Subjective Seen and examined in 324. He is eating breakfast and enjoying it. He offers no concerns and denies pain. MARITO Neville at bedside. ROS unreliable given cognition. Review of Systems Review of Systems: Unobtainable due to cognitive status Physical Exam Physical Exam: Gen: WD/WN, elderly, M, NAD, A&O x1 only, very pleasant HEENT: Normocephalic, atraumatic, conjunctivae moist, sclerae anicteric, mucous membranes moist. Lung:no audible w/r/r, normal insp effort, no accessory muscle use Extremities: No edema Skin: Warm, no rash, negative turgor. Results & Data Results & Data Medications Administered Current Inpatient Medications Acetaminophen (Acetaminophen 325 Mg Tab) 650 mg PO QID [facility] Stop: 10/21/24 16:59 Last Admin: 09/28/24 08:36 Dose: 650 mg Albuterol (Albuterol 0.083% Nebu Soln 3 Ml Vial) 2.5 mg NEB Q4H PRN; Protocol PRN Reason: SOB, wheeze, aspiration Stop: 10/21/24 14:15 Amlodipine Besylate (Amlodipine Besylate 5 Mg Tab) 5 mg PO QAM [facility] Stop: 10/12/24 08:59 Last Admin: 09/28/24 08:36 Dose: 5 mg Doxazosin Mesylate (Doxazosin Mesylate 4 Mg Tab) 4 mg PO HS [facility] Stop: 10/11/24 22:02 Last Admin: 09/27/24 20:58 Dose: 4 mg Finasteride (Finasteride 5 Mg Tab) 5 mg PO QAM [facility] Stop: 10/12/24 08:59 Last Admin: 09/28/24 08:36 Dose: 5 mg Glycopyrrolate (Glycopyrrolate 0.2 Mg/Ml Vial) 0.4 mg IV Q4H PRN PRN Reason: Rattling Secretions or Pulm Congestion Stop: 10/19/24 14:10 Guaifenesin (Guaifenesin Sugar Free 200 Mg/10 Ml Udc) 200 mg PO Q6H PRN PRN Reason: Cough Stop: 10/21/24 14:16 Lorazepam (Lorazepam 1 Mg Tab) 1 mg SL Q4H PRN PRN Reason: Discomfort, restless, anxiety Stop: 10/23/24 12:07 Last Admin: 09/26/24 19:03 Dose: 1 mg Morphine Sulfate (Morphine Sulfate 10 Mg/0.5 Ml Udp) 5 mg PO Q2H PRN PRN Reason: Pain Stop: 10/05/24 14:15 Ondansetron HCl (Ondansetron Inj 2 Mg/Ml 2 Ml Vial) 4 mg IV Q4H PRN PRN Reason: Nausea &/or Vomiting Stop: 10/19/24 14:10
[2024-09-28] MEDS: MoRPHine SULFATE 10 MG/0.5 ML UDP PO PRN (14:09)
[2024-09-29 07:01] VITALS: BP 110/62; PULSE 58; O2SAT 94
--- NOTE | 2024-09-29 10:48 | Discharge Summary ---
Discharge Summary Date of Service September 29, 2024 Principal Dx & Hospital Course #1 = Principal Diagnosis (1) Acute metabolic encephalopathy: (2) Acute on chronic hypoxic respiratory failure: (3) Influenza A: (4) COVID-19: (5) Lower extremity edema: (6) S/P AAA repair: (7) COPD (chronic obstructive pulmonary disease): (8) Dementia: Plan This is an 88-year-old male who is a resident at [facility] with PMH of COPD with nocturnal hypoxemia on 2 L nasal cannula O2 at bedtime, CAD s/p stent, history of AAA s/p repair 2019 following with [facility] vascular surgery, hypertension, hyperlipidemia, R renal artery stenosis, anemia, dementia and other medical problems listed below who was sent in for SOB and lethargy. He was managed for the above listed diagnoses. Patient with advanced dementia with multiple comorbidities. He was seen and evaluated by Palliative care team during hospital stay and was transitioned to comfort measures only. Care closely coordinated with family. He is comfortable on minimal comfort medications and is medically stable for discharge. Discharging on Ativan 1mg TID PRN and 1mg HS. Discharging to [facility] on comfort measures today. Notes For Next Care Provider Medication Changes From Visit 35 Admission HPI Per Admitting Provider This is an 88-year-old male who is a resident at [facility] with PMH of COPD with nocturnal hypoxemia on 2 L nasal cannula O2 at bedtime, CAD s/p stent, history of AAA s/p repair 2019 following with [facility] vascular surgery, hypertension, hyperlipidemia, R renal artery stenosis, anemia, dementia and other medical problems listed below who was sent in for SOB and lethargy. Daughter provided history 2/2 patient's dementia. Daughter noted lower extremity swelling last week and asked for facility provider to evaluate. Was started on a 5-day Lasix course and is completed 1 day (40mg day 1, then 20mg for 4 days) with some improvement. Had some wheezing at the end of last week but was attributed to COPD. Became much more lethargic and wheezy overnight and unable to maintain oxygen saturation at his baseline of 2 L at bedtime, so was sent in by staff for further evaluation. Patient remains much more lethargic than baseline. Is typically very talkative and oriented to self and others but is mainly been sleeping today. No fever, chills or notable cough, per daughter. Patient denies any pain right now. Remainder of ROS unobtainable due to patient's dementia. Noted to be hypoxic down to the mid 80s at the facility but improved to 96% on 4 L nasal cannula upon arrival. Admission Exam Per Admitting Provider General Appearance: WD/WN, vitals as above, NAD, sitting up in bed, lethargic but responsive to verbal stimuli Head: normocephalic, atraumatic Eyes: normal inspection, PERRL ENT: external ear and nose normal, oropharynx with dry mucous membranes Neck: normal visual inspection Respiratory: normal respiratory effort, lungs clear to auscultation, scattered expiratory wheezes. No accessory muscle use Cardiovascular: regular rate, rhythm, normal peripheral pulses, trace bilat. pedal edema. Vessels: no JVD Chest: normal inspection of chest Abdomen/GI: normal bowel sounds, soft, nontender, no hepatosplenomegaly Extremities/Musculoskeletal: no cyanosis or clubbing, extremities motor strength 5/5 Neurologic: PERRL, EOMI, accommodation nl, no face palsy, no dysarthria, CN's II-XI intact bilaterally and moves all extremities Psychiatric: A+Ox person only, euthymic affect Skin: no rashes, normal color, warm/dry Discharge Exam Gen: WD/WN, elderly, Male, NAD, A&O x1 only, pleasantly confused, resting comfortably HEENT: Normocephalic, atraumatic, mucous membranes moist Lung: clear to auscultation, normal insp effort, no accessory muscle use Extremities: No edema Skin: Warm, no rash Updated Medication List Medication Instructions Recorded Confirmed Type doxazosin 4 mg tablet 4 mg PO HS 08/24/19 09/11/24 History nitroglycerin 0.4 mg sublingual 0.4 mg sublingual DAILY PRN Chest 08/24/19 09/11/24 History tablet Pain amlodipine 5 mg tablet 5 mg PO QAM 06/17/23 09/11/24 History finasteride 5 mg tablet 5 mg PO QAM 06/17/23 09/11/24 History acetaminophen 650 mg 650 mg PO Q8H PRN Pain 07/15/24 09/11/24 History tablet,extended release lorazepam 1 mg tablet 1 mg sublingual HS #30 tabs 09/29/24 Rx lorazepam 1 mg tablet 1 mg sublingual TID PRN agitation 09/29/24 Rx #30 tabs Hospital Stay Data Consultations 09/11/24 17:51 ED Decision to Admit Stat 09/19/24 12:50 Consult Palliative Care Routine Diagnostic Imagining Performed 09/11/24 19:18 US venous doppler LE BI Routine Pending Results Patient Have Any Pending Studies at Discharge: No Discharge Instructions Given to Patient (Per Discharging Provider) Patient was admitted with advanced dementia and other chronic comorbities and was transitioned to Comfort Measures in coordinated effort with palliative care service and family. Continue ativan 1mg TID PRN anxiety/agitation and 1mg HS. Non-essential chronic medications have been discontinued to difficulty swallowing pills and to better align with comfort measures goal. See medication rec below. Please contact hospice agency with any further medication or care questions. Please take good care of yourself. Call if you have any questions or problems. You can reach a [facility] hospitalist on duty at [facility] 24 hours a day by calling [phone]. Total Time Total Time Spent Total Time Spent (In Minutes): 35 Supervising Physician Co-Signing Physician Notes Patient seen and examined I spent a total of 30 minutes coordinating, documenting and providing care for this patient excluding time spent in performance of separately billed services
== END 2024-09-29 12:30 | disposition hospice, inpatient (51) | DRG 177 ==
LOC: ED 14:31 → SUATTDRO 19:18 → EDINP 19:18 → 2S 20:27 → 3E 09-21 15:04